=== PATIENT | male | born 1980 | race Caucasian/White ===

== ENCOUNTER 2017-06-14 05:17 | Inpatient (IN) ==
[2017-06-14] MEDS ORDERED: Ondansetron ODT 4 MG TAB.RAPDIS SL ONE (05:49)
[2017-06-14] MEDS ORDERED: Ketorolac 30 MG/ML VIAL IVP ONE (05:49)
--- NOTE | 2017-06-14 05:54 | Emergency Department Note ---
START Narrative - START START: Patient is a 36-year-old male who presents with left lower abdominal pain that started approximately 9 hours prior to his arrival. He said he started after he ate dinner last night. He describes it as worsening. Radiates to his left flank. Nothing is making it better. As mentioned in history of hematuria for which he had been evaluated last month with a CT scan and mentions that he was told he had a fistula. He has a appointment with Dr. Lane next month for colonoscopy. He has some accompanying nausea, frequent urination, and hematuria. He denies fevers, vomiting, h/o kidney stones. This is a start note. Due to shift change, care of this patient will be transferred over to Dr. Clayton. Please see his further documentation for details. Meanwhile I will order GI labs, and analgesics and antiemetics.
[2017-06-14] MEDS ORDERED: *HR* Morphine 2 MG/ML SYRINGE IVP STA ×3 (06:15→08:51)
[2017-06-14] MEDS ORDERED: Ondansetron 4 MG/2 ML VIAL IVP STA (06:16)
--- NOTE | 2017-06-14 06:19 | Emergency Department Note ---
Disposition Clinical Impression: Fistula Abdominal pain Qualifiers: Abdominal location: left lower quadrant Qualified Code(s): R10.32 - Left lower quadrant pain Disposition: Admitted As Inpatient Condition: Fair Referrals: NONE,PCP [Primary Care Provider] - Forms: ED Satisfaction Letter, Work/School Release General Adult HPI - General Chief complaint: ED Abdominal Pain Stated complaint: "Abd Pain" Time Seen by Provider: 06/14/17 05:31 Source: patient, family Limitations: no limitations - History of Present Illness HPI Narrative: Patient presents with left lower quadrant abdominal pain that started after eating a chili dog at 9:30 last night. He was pain-free prior to eating. He vomited once at 11:00, nonbloody, nonbilious. No vomiting since then. Has some mild residual nausea. Pain does not radiate to his testicle or to his back , some radiation towards the right side of his abdomen. He has noted some blood in his urine. No history of similar episodes in the past. He is currently being treated with antibiotics for a bladder infection and is scheduled for a colonoscopy with Dr. Lane due to CT findings suggestive of a mass and a fistula. He has no history of kidney stones or diverticulitis. Has had no fever. Last bowel movement was just before he ate last night, last time he passed gas was right around the time that he ate last night. He does not feel as though his abdomen is distended or bloated. Pain is constant with intermittent waves of worsening and is kept him awake most of the night. Pain Scale: 10 - Related Data Previous Rx's Medication Instructions Recorded Silver Sulfadiazine [Silvadene] 25 gm TP BID #1 cream..g. 06/22/15 cephALEXin [Keflex] 500 mg PO TID #30 capsule 06/22/15 Cefuroxime PO [Ceftin] 500 mg PO Q12HR #20 tablet 05/25/17 Allergies Allergy/AdvReac Type Severity Reaction Status Date / Time diphenhydramine AdvReac See Verified 06/14/17 05:18 [From Benadryl] Comments tramadol AdvReac Nausea Verified 06/14/17 05:18 All systems ED: reviewed and negative except as stated. Past Medical History - Past Medical History Medical history: Reports: no medical history Surgical history: Reports: herniorrhaphy, other Psychiatric history: Reports: no psych history - Social History Smoking Status: Current every day smoker Smokeless Tobacco Status: No Alcohol use: Reports: heavy (States he drinks about a case of beer per day but has not been drinking since she has had a bladder infection because it makes him urinate and urination is painful. He says he had one 24 ounce beer today.) Drug use: Reports: none Physical Exam Vital signs noted please see nurse's notes. Gen.: Well-developed, well-nourished patient lying in bed who appears uncomfortable but nontoxic. Head: Atraumatic, normocephalic. Eyes: Sclerae anicteric. ENT: Mucous membranes moist. Heart: Regular rate and rhythm without appreciable murmur. Lungs: Normal respiratory pattern without respiratory distress, lungs clear to auscultation bilaterally. Abdomen: Soft, no upper abdominal tenderness, significant lower abdominal tenderness, worse on the left than on the right. No guarding, but is obviously uncomfortable. No appreciable distention. Bowel sounds present but hypoactive , not high-pitched. Skin: Warm and dry without rash. Neurologic: Awake, alert with normal speech and mental status. Cranial nerves grossly intact. No focal deficits or lateralizing signs. Psychiatric: Somewhat flat affect. - General Limitations: no limitations General appearance: alert, in no apparent distress Course Course Narrative: Minimal improvement after [address] scan unchanged. Spoke with Dr. Kessler who accepted patient for admission, will notify Dr. Lane as well. Vital Signs Temperature 98.3 F 06/14/17 05:18 Pulse Rate 97 06/14/17 05:18 Respiratory Rate 14 06/14/17 05:18 Blood Pressure 143/87 06/14/17 05:18 O2 Sat by Pulse Oximetry 98 06/14/17 05:18 Temperature 98.3 F 06/14/17 05:18 Pulse Rate 97 06/14/17 05:18 Respiratory Rate 14 06/14/17 05:18 Blood Pressure 143/87 06/14/17 05:18 O2 Sat by Pulse Oximetry 98 06/14/17 05:18 Oxygen Delivery Oxygen Delivery Room Air Medical Decision Making - Lab Data Lab Results 06/14/17 Range/Units 06:24 Urine Color Yellow (Yellow) Urine Clarity Turbid A (Clear) Urine pH 6.0 (5.0-8.0) pH Units Ur Specific [place] 1.026 H (1.010-1.025) Urine Protein 100 H (Neg-Trace) mg/dL Urine Glucose (UA) Normal (Normal) mg/dL Urine Ketones Negative (Negative) mg/dL Urine Blood Large H (Negative) Urine Nitrite Negative (Negative) Urine Bilirubin Negative (Negative) Urine Urobilinogen Normal (Normal) mg/dL Ur Leukocyte Esterase Large H (Negative) Urine Microscopic RBC Present (0-3) per hpf Urine Microscopic WBC TNTC H (0-3) per hpf Ur Squamous Epith Cells Many H (None-Few) per lpf Urine Bacteria Present (None-Few) per hpf Hyaline Casts None Seen (None-Few) per lpf Urine Mucus Many H (Few) Urine Yeast Present H (None Seen) per hpf Ur Culture Indicated? NO. (NO)
[2017-06-14 06:36] LABS: Bilirubin,Urine Negative (Negative); Blood,Urine Large (Negative); Clarity,Urine Turbid (Clear); Color,Urine Yellow (Yellow); Glucose,Urine (UA) Normal (Normal); Ketones,Urine Negative (Negative); Leukocyte Esterase,Urine Large (Negative); Nitrite,Urine Negative (Negative); Protein,Urine 100 mg/dL (Neg-Trace); Specific Gravity,Urine 1.026 (1.010-1.025); Urobilinogen,Urine Normal (Normal)
[2017-06-14 06:38] LABS: Hyaline Casts,Urine None Seen per lpf (None-Few); Squamous Epithelial Cell,Urine Many per lpf (None-Few); WBC,Urine TNTC per hpf (0-3)
[2017-06-14 06:58] LABS: Bacteria,Urine Present per hpf (None-Few); Mucus,Urine Many (Few); RBC,Urine Present per hpf (0-3); Yeast,Urine Present per hpf (None Seen)
--- NOTE | 2017-06-14 10:36 | General Surgery Consult Note ---
<Dave Echeverria - Last Filed: 06/15/17 10:52> Date of Encounter: 06/15/17 Time of Encounter: 10:35 Assessment and Plan (1) Pelvic fluid collection Current Visit: Yes Status: Acute Anterior Abd cyst w/ possible fistula. Patient scheduled to have colonoscopy w / Dr. Iglesia Grossman 07/2017. Patient has had pus and blood in urine. recently treated for bladder infection. CT abd/pelvis - thick-walled complicated cystic lesion abutting the anterior bladder with bilateral extension superiorly towards the iliopsoas muscles measures approximately 9 x 5 x 4 cm and has been present since at least 2014. previously treated at [facility], [facility] as of now. - consult urology, sees Dr. espinoza - consult IR for drainage - will consider transfer to [facility] for surgery, or in house partial cystectomy - obtain old records from [facility] and [place] - serial abd exam - recommend fluconazole - STI panel due to high risk (2) Chronic cystitis with hematuria Current Visit: Yes Status: Acute per management of Urology. (3) Hepatitis C Current Visit: Yes Status: Acute hep C antibody positive. recommend consult with Dr. LARA Qualifiers: Qualified Code(s): B19.20 - Unspecified viral hepatitis C without hepatic coma (4) Alcohol abuse, daily use Current Visit: Yes Status: Acute per management of medicine team (5) Tobacco abuse Current Visit: Yes Status: Acute per management of medicine team History of Present Illness Consult date: 06/14/17 Reason for consult: abdominal pain Requesting physician: Gumaro Clayton History of present illness: Mr Diamond is a 36 year old M w/ 2 year hx of blood in the urine and bladder mass/possible fistula. He was originally scheduled for colonoscopy with Dr. iglesia grossman in early Jul 2017. Patient presented to ED with sudden onset of left lower quadrant pain after eating a chili dog last night. CT abd/pelvis was ordered in ED, and confirmed the presence of anterior bladder mass. Pain is described as sharp and radiates to all quadrants, and lower back. Patient reports no history of UTI, but has had blood and white pus in his urine since getting out of [facility]. He was recently treated for a bladder infection with Keflex which he finished the course 4-5 days ago. Patient last bowel movment was last night. Patient denies change in bowel habit, fever, chills, recent weight loss (he previously reported weight loss when these symptoms first started 2 years ago), or recent illness. Past Med Surg Social Fam HX - Past Medical History Medical history: no medical history Psychiatric history: no psych history - Past Surgical History Surgical History: herniorrhaphy, other - Social History Smoking Status: Current every day smoker Smokeless Tobacco Status: No Alcohol use: heavy (States he drinks about a case of beer per day but has not been drinking since she has had a bladder infection because it makes him urinate and urination is painful. He says he had one 24 ounce beer today.) Drug use: none - Family History Mother History Unknown: Yes Living Status: Age at : 52 (Alcoholic) Cause of : Her failure Father History Unknown: Yes Living Status: Still Living Hx Family Cardiac Disorders: Yes Hx Family Endocrine Disorder: Yes Medications and Allergies RX: Fluconazole [Diflucan] 200 mg PO DAILY #3 tab 06/21/17 [Rx] RX: Vancomycin [Vancocin] 1,750 mg IV BID #30 vial 06/21/17 [Rx] 3 Allergy/AdvReac Type Severity Reaction Status Date / Time diphenhydramine AdvReac See Verified 06/14/17 09:39 [From Benadryl] Comments tramadol AdvReac Nausea Verified 06/14/17 09:39 Review of Systems All systems PM: A 10-system review of systems was performed and is negative for pertinent findings except as documented above in the HPI. - Constitutional as per HPI - EENT Nose, mouth and throat: as per HPI - Cardiovascular as per HPI - Respiratory as per HPI - Gastrointestinal as per HPI - Genitourinary as per HPI - Musculoskeletal as per HPI - Integumentary as per HPI - Neurological as per HPI - Psychiatric as per HPI - Endocrine as per HPI - Hematologic/Lymphatic as per HPI - Allergic/Immunologic as per HPI General Surgery Exam Initial Vital Signs Temp Pulse Resp BP Pulse Ox 98.3 F 97 14 143/87 98 06/14/17 05:18 06/14/17 05:18 06/14/17 05:18 06/14/17 05:18 06/14/17 05:18 - General physical appearance moderate distress, moderate pain - Eyes normal ocular movement - ENT no hearing loss, no congestion - Respiratory normal expansion, normal respiratory effort, clear to percussion, clear to auscultation - Cardiovascular Cardiovascular exam: Present: RRR - Abdomen Abdomen general surgery: Present: bowel sounds present, soft, tender, guarding. Absent: tympanic, distended, rebound Abdominal Tenderness: Present: LLQ, suprapubic - Integumentary Integumentary general surgery: Present: warm and dry, no abnormal pigmentation - Neurologic Present: normal coordination, normal sensation - Psychiatric Psychiatric general surgery: Present: appropriate, oriented to person, oriented to place, oriented to time, speech is normal, memory intact Exam Initial Vital Signs Temp Pulse Resp BP Pulse Ox 98.3 F 97 14 143/87 98 06/14/17 05:18 06/14/17 05:18 06/14/17 05:18 06/14/17 05:18 06/14/17 05:18 Results - Labs 06/15/17 03:56 06/15/17 03:56 Abnormal lab results Urine Clarity Turbid (Clear) A 06/14/17 06:24 Ur Specific [place] 1.026 (1.010-1.025) H 06/14/17 06:24 Urine Protein 100 mg/dL (Neg-Trace) H 06/14/17 06:24 Urine Blood Large (Negative) H 06/14/17 06:24 Ur Leukocyte Esterase Large (Negative) H 06/14/17 06:24 Urine Microscopic WBC TNTC per hpf (0-3) H 06/14/17 06:24 Ur Squamous Epith Cells Many per lpf (None-Few) H 06/14/17 06:24 Urine Mucus Many (Few) H 06/14/17 06:24 Urine Yeast Present per hpf (None Seen) H 06/14/17 06:24 All other labs normal. Consult Discharge Plan - Plan Additional Instructions: Drain care- cleanse around the drain in the shower daily with soap and water and pat dry. Apply dry dressing and taped to secure. Suspend drain while in the shower so that there is no tension on the drain. Empty the drain 2 times daily and as needed. Record outputs (ml's) on drain record and bring to follow-up appointment with Nikkie Masters on 06/27/2017 Referrals: Iglesia Grossman MD [Partnered Physician] - 07/11/17 9:45 am (hospital follow-up; discuss mesh removal) Khoi Galvez DO [Resident] - 06/29/17 3:00 pm Indigo Masters CNP [Advanced Practice Nurse] - 06/27/17 3:00 pm (surgery follow -up; drain check) Prescriptions: RX: Fluconazole [Diflucan] 200 mg PO DAILY #3 tab RX: Vancomycin [Vancocin] 1,750 mg IV BID #30 vial <Vel Tompkins - Last Filed: 06/22/17 07:11> Date of Encounter: 06/15/17 Review of Systems All systems PM: A 10-system review of systems was performed and is negative for pertinent findings except as documented above in the HPI. General Surgery Exam Initial Vital Signs Temp Pulse Resp BP Pulse Ox 98.3 F 97 14 143/87 98 06/14/17 05:18 06/14/17 05:18 06/14/17 05:18 06/14/17 05:18 06/14/17 05:18 Exam Initial Vital Signs Temp Pulse Resp BP Pulse Ox 98.3 F 97 14 143/87 98 06/14/17 05:18 06/14/17 05:18 06/14/17 05:18 06/14/17 05:18 06/14/17 05:18 Results - Labs 06/21/17 09:42 06/21/17 09:42 Abnormal lab results MPV 9.0 fL (9.4-12.4) L 06/21/17 09:42 Glucose 111 mg/dL (70-105) H 06/21/17 09:42 POC Glucose 107 (58-89) H 06/17/17 17:13 AST 58 Units/L (13-39) H 06/15/17 03:56 ALT 97 Units/L (7-52) H 06/15/17 03:56 Globulin 3.8 g/dL (2.4-3.5) H 06/15/17 03:56 Albumin/Globulin Ratio 0.9 (1.1-2.2) L 06/15/17 03:56 HDL Cholesterol 30 mg/dL (40-59) L 06/15/17 03:56 Folate 21.0 ng/mL (3.0-16.0) H 06/15/17 20:58 Urine Clarity Turbid (Clear) A 01/10/18 06:24 Ur Specific [place] 1.026 (1.010-1.025) H 06/14/17 06:24 Urine Protein 100 mg/dL (Neg-Trace) H 06/14/17 06:24 Urine Blood Large (Negative) H 06/14/17 06:24 Ur Leukocyte Esterase Large (Negative) H 06/14/17 06:24 Urine Microscopic WBC TNTC per hpf (0-3) H 06/14/17 06:24 Ur Squamous Epith Cells Many per lpf (None-Few) H 06/14/17 06:24 Urine Mucus Many (Few) H 06/14/17 06:24 Urine Yeast Present per hpf (None Seen) H 06/14/17 06:24 Hepatitis C Ab Screen Reactive (Nonreactive) H 06/14/17 13:50 HCV RNA (PCR) Interp DETECTED (Not Detected) A 06/15/17 08:59 Diabetes panel 06/21/17 Range/Units 09:42 Sodium 138 (136-145) mEq/L Potassium 4.2 (3.5-5.1) mEq/L Chloride 105 (98-107) mEq/L Carbon Dioxide 29 (23-29) mEq/L BUN 9 (6-20) mg/dL Creatinine 0.93 (0.70-1.30) mg/dL Glucose 111 H (70-105) mg/dL Calcium 8.9 (8.6-10.3) mg/dL Calcium panel 06/21/17 Range/Units 09:42 Calcium 8.9 (8.6-10.3) mg/dL Pituitary panel 06/21/17 Range/Units 09:42 Sodium 138 (136-145) mEq/L Potassium 4.2 (3.5-5.1) mEq/L Chloride 105 (98-107) mEq/L Carbon Dioxide 29 (23-29) mEq/L BUN 9 (6-20) mg/dL Creatinine 0.93 (0.70-1.30) mg/dL Glucose 111 H (70-105) mg/dL Calcium 8.9 (8.6-10.3) mg/dL Adrenal panel 06/21/17 Range/Units 09:42 Sodium 138 (136-145) mEq/L Potassium 4.2 (3.5-5.1) mEq/L Chloride 105 (98-107) mEq/L Carbon Dioxide 29 (23-29) mEq/L BUN 9 (6-20) mg/dL Creatinine 0.93 (0.70-1.30) mg/dL Glucose 111 H (70-105) mg/dL Calcium 8.9 (8.6-10.3) mg/dL All other labs normal. - Attending Attestation I examined this patient and my medical decision-making was reviewed with the Resident Physician. I agree with the documented findings, disposition and treatment plan as described except to the extent set forth below. Review the above assessment and evaluation. Patient with chronic pelvic collection which is either fluid or possible abscess. Was concerned about this being a soft tissue mass. We will discuss with interventional radiology about the possibility of placing a drain in this area.
--- NOTE | 2017-06-14 11:17 | Internal Med History&Physical ---
<Belkys Mendieta - Last Filed: 06/14/17 12:42> Date of Encounter: 06/14/17 Time of Encounter: 11:15 Assessment and Plan (1) Abdominal pain Current visit: Yes Status: Acute Cystic lesion of the anterior bladder has been present since 2014, he reports previous hernia repair and treatment at [facility] of a hematoma which required drainage. Possible fistula Gen. surgical consult, ER contacted Dr. Tompkins GI consult Dr Porter contacted Reviewed CT abdomen and pelvis Obtain blood cultures [place] Cipro and Flagyl Labs Qualifiers: Abdominal location: left lower quadrant Qualified Code(s): R10.32 - Left lower quadrant pain (2) Chronic cystitis with hematuria Current visit: Yes Status: Acute Patient has followed with Dr. Love for chronic cystitis and recently completed a course of Keflex about 4 days ago. He was scheduled for a cystoscopy yesterday which was canceled Reviewed urinalysis, obtain urine culture Urology consult (3) Nausea and vomiting in adult Current visit: Yes Status: Acute Zofran Diet as per surgical service (4) Alcohol abuse, daily use Current visit: Yes Status: Acute C1WA scale Social service consult regarding cessation education Check LFTs (5) Tobacco abuse Current visit: Yes Status: Acute Cessation education NicoDerm patch Internal Medicine - H&P: HPI Admitted From: Home Plans for Post Hospital Care: Home History of present illness: Mr. Diamond is a 36 year old male who presented from home to the ER with left lower quadrant pain that was excruciating overnight. Yesterday he felt nauseated and only drink water all day. Last night he ate a chili dog and immediately became nauseated with one emesis of undigested food. He states he was nauseated with pain in the lower abdomen throughout the night. He denied fever, chills, diarrhea, bloody emesis or bowel movement, constipation, shortness of breath, syncope, or weight loss. He does report intermittent sharp chest pain radiating from the abdomen on intermittent basis that does not interfere with his activity. He decided to come for evaluation and treatment today. He is scheduled for a colonoscopy by Dr. Schwartz on July 19 for evaluation of a mass and fistula. He also states that he follows with Dr. Holloway of urology and was scheduled for cystoscopy which was canceled yesterday. He is currently complaining of thirst and hunger and wants to know when he will be able to eat. The patient has a history significant for a cystic lesion of the anterior bladder has been present since 2014 with bladder thickening consistent with chronic cystitis. CT scan also revealed a contracted gallbladder with tiny stones and hepatomegaly with steatosis. The patient states he normally drinks 1 case of a 24 ounce beer daily except when he has bladder problems which causes "terrible pain and burning with voiding". He states he urinates blood at times. He states he has intermittent chronic abdominal pain on a regular basis. He received 40 mg of IV morphine, 30 mg of Toradol and 12 mg of Zofran in the emergency room His significant other is at the bedside, all questions were answered and he is agreeable to admission. Past Med Surg Social Fam HX - Past Medical History Medical history: other (Chronic cystitis, cystic lesion of the anterior bladder , hernia) Psychiatric history: no psych history - Past Surgical History Surgical History: herniorrhaphy, other (Hernia repair) - Social History Smoking Status: Current every day smoker Smokeless Tobacco Status: No Alcohol use: heavy (States he drinks about a case of beer per day but has not been drinking since she has had a bladder infection because it makes him urinate and urination is painful. He says he had one 24 ounce beer today.) Drug use: marijuana Occupational status: employed Current living situation: Home - Independent Activity Level: Independent ambulation - Family History Mother Living Status: Age at : 52 (Alcoholic) Cause of : Her failure Father Living Status: Still Living Hx Family Cardiac Disorders: Yes Hx Family Endocrine Disorder: Yes Internal Medicine - H&P: Meds No Known Home Drugs 06/14/17 [History] 3 Allergy/AdvReac Type Severity Reaction Status Date / Time diphenhydramine AdvReac See Verified 06/14/17 09:39 [From Benadryl] Comments tramadol AdvReac Nausea Verified 06/14/17 09:39 All Systems PM: A 10-system review of systems was performed and is negative for pertinent findings except as documented above in the HPI. - Constitutional Constitutional: no chills, no fever(s), no night sweats - EENT Eyes: no change in vision, no discharge, no pain, no photophobia Ears: no ear discharge, no ear pain, no tinnitus Nose, mouth and throat: no dysphagia, no nasal discharge, no neck pain, no sore throat - Cardiovascular Cardiovascular ROS IM: as per HPI, no diaphoresis, no dyspnea, no lightheadedness, no palpitations, no syncope - Respiratory Respiratory: as per HPI, no cough, no dyspnea, no wheezing, no excessive phlegm production - Gastrointestinal Gastrointestinal: as per HPI, no abdominal pain, no diarrhea, no hematemesis, no hematochezia, no melena, no nausea, no vomiting - Genitourinary Genitourinary ROS male: dysuria, flank pain, hematuria, urinary frequency, urinary urgency - Musculoskeletal Musculoskeletal ROS IM: no numbness, no tingling - Integumentary Integumentary IM: no rash, no unusual bruising - Neurological Neurological ROS: no confusion, no convulsions, no focal weakness, no numbness, no tingling, no tremor(s) - Hematologic/Lymphatic Hematologic/Lymphatic: no easy bruising - Constitutional Vitals: Temp Pulse Resp BP Pulse Ox 98.3 F 92 16 138/87 94 06/14/17 05:18 06/14/17 10:32 06/14/17 10:32 06/14/17 10:32 06/14/17 10:32 General appearance: Present: A&O X 3, pleasant, no acute distress - Head Head exam: Present: atraumatic, normocephalic - Eye Eye exam: Present: PERRL, conjuntiva pink, sclera anicteric Pupils: Present: PERRL - Neck Neck exam general surgery: Present: supple, trachea midline. Absent: lymphadenopathy - Respiratory Respiratory exam: Present: CTAB. Absent: accessory muscle use, rales, rhonchi, wheezes - Cardiovascular Cardiovascular exam: Present: RRR, +S1, +S2. Absent: diastolic murmur, gallop, rubs, systolic murmur - GI/Abdominal GI/Abdominal exam: Present: guarding, normal bowel sounds, soft, no peritoneal signs. Absent: distended, tenderness - Extremities Exam Extremities exam: Present: warm, radial pulses palpable and symmetrical. Absent : calf tenderness, cyanotic, pedal edema - Neurological Exam Neurological exam: Present: CN II-XII intact, oriented X3, no focal deficits. Absent: pronater drift, facial droop, speech deficit - Skin Skin exam: Present: dry, intact <Justus Reinoso P - Last Filed: 06/18/17 19:15> Date of Encounter: 06/18/17 Internal Medicine - H&P: HPI History of present illness: Mr. Diamond is a 36 year old male All Systems PM: A 10-system review of systems was performed and is negative for pertinent findings except as documented above in the HPI. - Constitutional Vitals: Temp Pulse Resp BP Pulse Ox 98.0 F 73 16 145/92 97 06/18/17 16:47 06/18/17 16:47 06/18/17 16:47 06/18/17 16:47 06/18/17 16:47 Internal Med - H&P Results - Labs CBC & Chem 7: 06/17/17 06:57 06/17/17 06:57 - Impressions ITS Impressions Needle Aspiration CT 06/15/17 00:00 IMPRESSION: Successful 12 [place] drainage catheter placement into a pelvic abscess as above. 120 mL of pus was removed. Sample sent to the lab. D/ / Darryl Paredes MD / Darryl Paredes MD Interpreting Provider: Darryl Paredes MD Chest/Abdomen X-ray 06/16/17 12:31 IMPRESSION: Percutaneous drain in the right pelvis projects in stable position. Findings most suggestive of mild colonic ileus. D/ / Dane Mendoza MD / Dane Mendoza MD Interpreting Provider: Dane Mendoza MD - Attending Attestation I examined this patient and my medical decision-making was reviewed with the Resident Physician/[employer]. I agree with the documented findings, disposition and treatment plan as described except to the extent set forth below.
[2017-06-14] MEDS ORDERED: Ondansetron 4 MG/2 ML VIAL IVP PRN (11:56)
[2017-06-14] MEDS ORDERED: Naloxone 0.4 MG/ML INJ IVP PRN (11:56)
[2017-06-14] MEDS: 0.9 % Sodium Chloride 1,000 ML IVC SCH (13:31)
[2017-06-14] MEDS ORDERED: Nicotine 21 MG PATCH.TD24 TD ONE (14:00)
[2017-06-14 14:17] LABS: Basophils % 0.3 %; Eosinophils # 0.1 K/mcL (0.0-0.6); Hematocrit 43.5 % (37.5-50.1); Hemoglobin 13.9 g/dL (12.9-16.9); Immature Granulocytes % 0.4 % (0-4); Lymphocytes # 1.9 K/mcL (0.6-4.6); Lymphocytes % 14.9 %; Mean Corpuscular Hemoglobin 28.9 pg (28.0-33.3); Mean Corpuscular Volume 90.4 fL (83.0-100.0); Mean Platelet Volume 9.3 fL (9.4-12.4); Monocytes # 1.4 K/mcL (0.0-1.3); Monocytes % 11.2 %; Neutrophils # 9.2 K/mcL (1.6-8.9); Platelet Count 330 K/mcL (140-400); Red Blood Count 4.81 M/mcL (4.19-5.50); Red Cell Distribution Width 13.7 % (11.5-14.5); Segmented Neutrophils % 72.2 %
[2017-06-14 14:28] LABS: Alanine Aminotransferase 114 Units/L (7-52); Albumin 4.2 g/dL (3.5-5.7); Albumin/Globulin Ratio 1.1 (1.1-2.2); Alkaline Phosphatase 78 Units/L (34-104); Aspartate Amino Transferase 72 Units/L (13-39); BUN/Creatinine Ratio 12 (6-26); Bilirubin,Total 0.6 mg/dL (0.3-1.0); Blood Urea Nitrogen 11 mg/dL (6-20); Calcium 9.4 mg/dL (8.6-10.3); Carbon Dioxide 23 mEq/L (23-29); Chloride 104 mEq/L (98-107); Globulin 3.8 g/dL (2.4-3.5); Glucose 111 mg/dL (70-105); Osmolality,Calculated 280 (280-300); Potassium 3.8 mEq/L (3.5-5.1); Sodium 135 mEq/L (136-145); eGFR For African Americans > 60 (> 60); eGFR For Non-African Americans > 60 (> 60)
[2017-06-14] MEDS: MetroNIDAZOLE 500 MG/100 ML 500 MG/100 ML BAG IVPB SCH ×2 (14:29→23:59)
[2017-06-14] MEDS: *HR* Morphine 2 MG/ML SYRINGE IVP PRN ×3 (14:29→23:59)
[2017-06-14 15:17] LABS: HIV-1&2 Antibody & p24 Ag Nonreactive (Nonreactive); Hepatitis A Antibody IgM Nonreactive (Nonreactive); Hepatitis B Core IgM Nonreactive (Nonreactive); Hepatitis B Surface Antigen Nonreactive (Nonreactive)
[2017-06-14 15:22] LABS: Hepatitis C Virus Antibody Reactive (Nonreactive)
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
[2017-06-14 17:05] LABS: Carcinoembryonic Antigen 1.5 ng/mL (Less than 5.0)
[2017-06-14] MEDS ORDERED: *HR* Morphine 2 MG/ML SYRINGE IVP PRN (21:32)
[2017-06-15 04:51] LABS: Basophils % 0.3 %; Eosinophils # 0.1 K/mcL (0.0-0.6); Eosinophils % 1.1 %; Hematocrit 41.7 % (37.5-50.1); Hemoglobin 13.1 g/dL (12.9-16.9); Immature Granulocytes % 0.3 % (0-4); Lymphocytes # 1.5 K/mcL (0.6-4.6); Lymphocytes % 16.7 %; Mean Corpuscular HGB Conc 31.4 g/dL (31.6-35.5); Mean Corpuscular Hemoglobin 28.6 pg (28.0-33.3); Mean Platelet Volume 9.7 fL (9.4-12.4); Monocytes # 1.1 K/mcL (0.0-1.3); Monocytes % 11.7 %; Neutrophils # 6.3 K/mcL (1.6-8.9); Platelet Count 284 K/mcL (140-400); Red Blood Count 4.58 M/mcL (4.19-5.50); Red Cell Distribution Width 13.5 % (11.5-14.5); Segmented Neutrophils % 69.9 %
[2017-06-15 04:53] LABS: INR 1.1; Prothrombin Time 11.5 Seconds (9.4-12.1)
[2017-06-15 04:56] LABS: Activated Partial Thrombo Time 28.5 Seconds (26.0-36.0)
[2017-06-15] MEDS: *HR* Morphine 2 MG/ML SYRINGE IVP PRN ×4 (05:04→19:46)
[2017-06-15 05:13] LABS: Alanine Aminotransferase 97 Units/L (7-52); Albumin 3.6 g/dL (3.5-5.7); Albumin/Globulin Ratio 0.9 (1.1-2.2); Alkaline Phosphatase 72 Units/L (34-104); Aspartate Amino Transferase 58 Units/L (13-39); BUN/Creatinine Ratio 11 (6-26); Bilirubin,Total 0.7 mg/dL (0.3-1.0); Blood Urea Nitrogen 9 mg/dL (6-20); Calcium 9.1 mg/dL (8.6-10.3); Carbon Dioxide 26 mEq/L (23-29); Chloride 104 mEq/L (98-107); Chol/HDL Ratio 3.8 (0-4.9); Cholesterol 114 mg/dL (< 200); Globulin 3.8 g/dL (2.4-3.5); Glucose 108 mg/dL (70-105); HDL Cholesterol 30 mg/dL (40-59); LDL Cholesterol,Calculated 73 mg/dL (0-99); Magnesium 2.1 mg/dL (1.6-2.6); Osmolality,Calculated 277 (280-300); Phosphorous 3.4 mg/dL (2.7-4.5); Potassium 3.8 mEq/L (3.5-5.1); Sodium 134 mEq/L (136-145); Total Protein 7.4 g/dL (6.4-8.9); Triglycerides 55 mg/dL (< 150); eGFR For African Americans > 60 (> 60); eGFR For Non-African Americans > 60 (> 60)
[2017-06-15] MEDS: 0.9 % Sodium Chloride 1,000 ML IVC SCH ×2 (06:48→08:48)
[2017-06-15] MEDS: MetroNIDAZOLE 500 MG/100 ML 500 MG/100 ML BAG IVPB SCH ×2 (08:49→17:44)
--- NOTE | 2017-06-15 11:06 | General Surgery Progress Note ---
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 Patient scheduled to have colonoscopy w / Dr. Iglesia Lane 07/2017. Patient has had pus and blood in urine. recently treated for bladder infection. CT abd/pelvis - thick-walled complicated cystic lesion abutting the anterior bladder with bilateral extension superiorly towards the iliopsoas muscles measures approximately 9 x 5 x 4 cm and has been present since at least 2014. previously treated at [facility], unkown as of now. - IR drain - pending - will consider transfer to [facility] for surgery, or in house partial cystectomy - obtain old records from [facility] and [place] - pending - serial abd exam (2) Chronic cystitis with hematuria Current Visit: Yes Status: Acute per management of Urology. started fluconazole 200 mg for day 1, recommend fluconazole 100 mg after. (3) Hepatitis C Current Visit: Yes Status: Acute hep C antibody positive. recommend consult with GI Qualifiers: Qualified Code(s): B19.20 - Unspecified viral hepatitis C without hepatic coma (4) Alcohol abuse, daily use Current Visit: Yes Status: Acute per management of medicine team (5) Tobacco abuse Current Visit: Yes Status: Acute per management of medicine team Subjective Patient reports: feels better, pain is less, nausea, afebrile Objective Vital Signs - Last 8 Hours Temp Pulse Resp BP Pulse Ox 06/15/17 05:23 98.2 F 79 15 105/63 95 Intake and Output 06/14/17 06/15/17 06/15/17 23:59 07:59 15:59 Intake Total 200 / 200 1100 / 1100 Output Total 0 / 0 0 / 0 Balance 200 / 200 1100 / 1100 Intake: IV Fluids 200 / 200 1100 / 1100 0.9 % Sodium Chloride 1,000 ML 1000 / 1000 @ 70 mls/hr IVC .[id number] [facility] Rx #:[id number] Cipro Premix 200 MG/100 ML 200 100 / 100 mg In 100 ml @ 100 mls/hr IVPB Q12HR [facility] Rx#:[id number] Flagyl Premix 500 MG/100 ML 500 100 / 100 100 / 100 mg In 100 ml @ 100 mls/hr IVPB Q8HR [facility] Rx#:[id number] Oral 0 / 0 0 / 0 Output: Urine 0 / 0 0 / 0 Other: Weight 95.8 kg Blood Glucose* 105 Patient Weight 06/15/17 23:59 Weight 95.8 kg - General physical appearance well developed, well nourished, no distress, moderate pain - Eyes normal ocular movement - ENT normal mucosa, no hearing loss, no congestion - Respiratory normal expansion, normal respiratory effort, clear to percussion, clear to auscultation - Cardiovascular Cardiovascular exam: Present: RRR - Abdomen Abdomen: Present: bowel sounds present, soft, tender. Absent: guarding, rebound Abdominal Tenderness: RLQ, LLQ, suprapubic - Integumentary no rash, no growths, no abnormal pigmentation - Neurologic normal sensation - Psychiatric oriented to time, oriented to person, oriented to place, speech is normal, memory intact - Labs 06/15/17 03:56 06/15/17 03:56 Diabetes panel 06/15/17 Range/Units 03:56 Sodium 134 L (136-145) mEq/L Potassium 3.8 (3.5-5.1) mEq/L Chloride 104 (98-107) mEq/L Carbon Dioxide 26 (23-29) mEq/L BUN 9 (6-20) mg/dL Creatinine 0.84 (0.70-1.30) mg/dL Glucose 108 H (70-105) mg/dL Calcium 9.1 (8.6-10.3) mg/dL AST 58 H (13-39) Units/L ALT 97 H (7-52) Units/L Alkaline Phosphatase 72 (34-104) Units/L Albumin 3.6 (3.5-5.7) g/dL Triglycerides 55 (< 150) mg/dL HDL Cholesterol 30 L (40-59) mg/dL Calcium panel 06/15/17 Range/Units 03:56 Calcium 9.1 (8.6-10.3) mg/dL Phosphorus 3.4 (2.7-4.5) mg/dL Albumin 3.6 (3.5-5.7) g/dL Pituitary panel 06/15/17 Range/Units 03:56 Sodium 134 L (136-145) mEq/L Potassium 3.8 (3.5-5.1) mEq/L Chloride 104 (98-107) mEq/L Carbon Dioxide 26 (23-29) mEq/L BUN 9 (6-20) mg/dL Creatinine 0.84 (0.70-1.30) mg/dL Glucose 108 H (70-105) mg/dL Calcium 9.1 (8.6-10.3) mg/dL Adrenal panel 06/15/17 Range/Units 03:56 Sodium 134 L (136-145) mEq/L Potassium 3.8 (3.5-5.1) mEq/L Chloride 104 (98-107) mEq/L Carbon Dioxide 26 (23-29) mEq/L BUN 9 (6-20) mg/dL Creatinine 0.84 (0.70-1.30) mg/dL Glucose 108 H (70-105) mg/dL Calcium 9.1 (8.6-10.3) mg/dL Total Bilirubin 0.7 (0.3-1.0) mg/dL AST 58 H (13-39) Units/L ALT 97 H (7-52) Units/L Alkaline Phosphatase 72 (34-104) Units/L Albumin 3.6 (3.5-5.7) g/dL Consult Discharge Plan - Plan Referrals: NONE,PCP [Primary Care Provider] - <Vel Tompkins M - Last Filed: 06/15/17 17:36> Date of Encounter: 06/15/17 Objective Vital Signs - Last 8 Hours Temp Pulse Resp BP Pulse Ox 06/15/17 14:44 71 24 123/72 95 06/15/17 14:42 67 18 127/75 98 06/15/17 14:40 71 16 127/75 06/15/17 12:02 97.6 F 68 15 127/76 99 Intake and Output 06/15/17 06/15/17 06/15/17 07:59 15:59 23:59 Intake Total 1100 / 1100 200 / 200 Output Total 0 / 0 0 / 0 Balance 1100 / 1100 200 / 200 Intake: IV Fluids 1100 / 1100 200 / 200 0.9 % Sodium Chloride 1,000 ML 1000 / 1000 @ 70 mls/hr IVC .[id number] [facility] Rx #:[id number] Cipro Premix 200 MG/100 ML 200 100 / 100 mg In 100 ml @ 100 mls/hr IVPB Q12HR [facility] Rx#:[id number] Flagyl Premix 500 MG/100 ML 500 100 / 100 100 / 100 mg In 100 ml @ 100 mls/hr IVPB Q8HR [facility] Rx#:[id number] Oral 0 / 0 Output: Urine 0 / 0 0 / 0 Other: Weight 95.8 kg Blood Glucose* 105 Patient Weight 06/15/17 23:59 Weight 95.8 kg - Labs 06/15/17 03:56 06/15/17 03:56 Diabetes panel 06/15/17 Range/Units 03:56 Sodium 134 L (136-145) mEq/L Potassium 3.8 (3.5-5.1) mEq/L Chloride 104 (98-107) mEq/L Carbon Dioxide 26 (23-29) mEq/L BUN 9 (6-20) mg/dL Creatinine 0.84 (0.70-1.30) mg/dL Glucose 108 H (70-105) mg/dL Calcium 9.1 (8.6-10.3) mg/dL AST 58 H (13-39) Units/L ALT 97 H (7-52) Units/L Alkaline Phosphatase 72 (34-104) Units/L Albumin 3.6 (3.5-5.7) g/dL Triglycerides 55 (< 150) mg/dL HDL Cholesterol 30 L (40-59) mg/dL Calcium panel 06/15/17 Range/Units 03:56 Calcium 9.1 (8.6-10.3) mg/dL Phosphorus 3.4 (2.7-4.5) mg/dL Albumin 3.6 (3.5-5.7) g/dL Pituitary panel 06/15/17 Range/Units 03:56 Sodium 134 L (136-145) mEq/L Potassium 3.8 (3.5-5.1) mEq/L Chloride 104 (98-107) mEq/L Carbon Dioxide 26 (23-29) mEq/L BUN 9 (6-20) mg/dL Creatinine 0.84 (0.70-1.30) mg/dL Glucose 108 H (70-105) mg/dL Calcium 9.1 (8.6-10.3) mg/dL Adrenal panel 06/15/17 Range/Units 03:56 Sodium 134 L (136-145) mEq/L Potassium 3.8 (3.5-5.1) mEq/L Chloride 104 (98-107) mEq/L Carbon Dioxide 26 (23-29) mEq/L BUN 9 (6-20) mg/dL Creatinine 0.84 (0.70-1.30) mg/dL Glucose 108 H (70-105) mg/dL Calcium 9.1 (8.6-10.3) mg/dL Total Bilirubin 0.7 (0.3-1.0) mg/dL AST 58 H (13-39) Units/L ALT 97 H (7-52) Units/L Alkaline Phosphatase 72 (34-104) Units/L Albumin 3.6 (3.5-5.7) g/dL - Attending Attestation I examined this patient and my medical decision-making was reviewed with the Resident Physician. I agree with the documented findings, disposition and treatment plan as described except to the extent set forth below. I reviewed with the above assessment and evaluation. The patient underwent a CT scan guided drain of the pelvic fluid collection with over 100 mL of exudate expressed. Cultures pending. Will restart oral diet. Continue with IV antibiotics.
[2017-06-15] MEDS ORDERED: *HR* Midazolam HCl 2 MG/2 ML VIAL IVP ONE (14:28)
[2017-06-15] MEDS ORDERED: *HR* Midazolam HCl 2 MG/2 ML VIAL ONE (14:35)
--- NOTE | 2017-06-15 14:38 | Event Note ---
Date of Encounter: 06/15/17 Time of Encounter: 14:[address] [facility] -MRI of the pelvis 02/13/2015 note soft tissue mass within the pelvis anterior to the bladder extending to the bilateral pelvic sidewalls abutting the bilateral iliacus muscles. The mass invades the interior wall of the bladder. The mast demonstrates solid and cystic components with heterogeneous enhancement. The mass abuts a portion of the sigmoid colon and the left rectus abdominis muscle. 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 Mildly prominent retroperitoneal lymph node which could be metastatic. -CT biopsy (pelvic area mass)/ Surgical pelvic biopsy 02/16/[address] [facility] notes results of review of the air dried imprint slideshow only macrophages and neutrophils. Core biopsy sections show unremarkable segments of skeletal muscle and an occasional fibrovascular -Non-Packing Room Inspector cytology 02/18/2017 note 70 ML is clear yellow fluid negative for malignant cells negative chest x-ray 02/2015 -CTA of the chest 02/14/2015 is without evidence of aneurysm, dissection, or active extravasation of contrast. CTA of the pelvis notes left pelvic tiffanie- peritoneum retroperitoneum a complex heterogeneous rim enhancing mass with multifocal central hyper density and modular peripheral enhancement measuring up to 4.9 X4 .2 cm and transfers dimensions. Urinary bladder is mildly to moderately distended with wall thickening. -CTA of the abdomen and pelvis on 11/28/2015 notes no evidence of solid organ injury or secondary findings to suggest a hollow viscous injury. Multiloculated cystic mass centered over the left virgie pelvis with extension to the left iliac and psoas muscle similar to the finding that was seen previously in February 2015. Differential exam diagnosis again include sarcoma with cystic degeneration and abscess and hepatic steatosis is noted.
--- NOTE | 2017-06-15 15:27 | IR Procedure Note ---
Date of procedure: 06/15/17 Consent Obtained: Written consent Timeout: Correct patient and procedure verified, Correct site verified, Time out performed, Skin prep completed Local anesthetic: Lidocaine 1% Indications: Pelvic fluid collection, chronic, possible fistula to bladder Procedure Performed: Pelvic drain placement Was there an materials assistant present: No Site/Technique: RLQ access, paramidline Results/Findings: 12fr drain placed, 110ml of pus removed. Estimated blood loss (cc): 2 Complications: None; Tolerated procedure well Post Procedure Treatment Plan: Monitoring in VIR Specimen: Sample of pus sent to lab
--- NOTE | 2017-06-15 18:12 | Urology Progress Note ---
Date of Encounter: 06/15/17 Time of Encounter: 18:11 - Assessment and Plan (1) Pelvic fluid collection Current Visit: Yes Status: Acute Assessment and plan: Status post interventional radiology drainage which returned large volume purulent fluid. Patient has improved. Recommend following cultures to determine if bacterial and/or fungal organisms present. No urgent need for surgical intervention (2) Chronic cystitis with hematuria Current Visit: Yes Status: Acute Progress Note Subjective: feels better, still having pain Narrative: Patient reports he still having cramping discomfort in his pelvis Objective Initial Vital Signs Temp Pulse Resp BP Pulse Ox 98.3 F 97 14 143/87 98 06/14/17 05:18 06/14/17 05:18 06/14/17 05:18 06/14/17 05:18 06/14/17 05:18 - General physical appearance Present: no distress - Abdomen Present: soft - Additional Exam Drain with opaque bloody drainage - Labs 06/15/17 03:56 06/15/17 03:56 Diabetes panel 06/15/17 Range/Units 03:56 Sodium 134 L (136-145) mEq/L Potassium 3.8 (3.5-5.1) mEq/L Chloride 104 (98-107) mEq/L Carbon Dioxide 26 (23-29) mEq/L BUN 9 (6-20) mg/dL Creatinine 0.84 (0.70-1.30) mg/dL Glucose 108 H (70-105) mg/dL Calcium 9.1 (8.6-10.3) mg/dL AST 58 H (13-39) Units/L ALT 97 H (7-52) Units/L Alkaline Phosphatase 72 (34-104) Units/L Albumin 3.6 (3.5-5.7) g/dL Triglycerides 55 (< 150) mg/dL HDL Cholesterol 30 L (40-59) mg/dL Calcium panel 06/15/17 Range/Units 03:56 Calcium 9.1 (8.6-10.3) mg/dL Phosphorus 3.4 (2.7-4.5) mg/dL Albumin 3.6 (3.5-5.7) g/dL Pituitary panel 06/15/17 Range/Units 03:56 Sodium 134 L (136-145) mEq/L Potassium 3.8 (3.5-5.1) mEq/L Chloride 104 (98-107) mEq/L Carbon Dioxide 26 (23-29) mEq/L BUN 9 (6-20) mg/dL Creatinine 0.84 (0.70-1.30) mg/dL Glucose 108 H (70-105) mg/dL Calcium 9.1 (8.6-10.3) mg/dL Adrenal panel 06/15/17 Range/Units 03:56 Sodium 134 L (136-145) mEq/L Potassium 3.8 (3.5-5.1) mEq/L Chloride 104 (98-107) mEq/L Carbon Dioxide 26 (23-29) mEq/L BUN 9 (6-20) mg/dL Creatinine 0.84 (0.70-1.30) mg/dL Glucose 108 H (70-105) mg/dL Calcium 9.1 (8.6-10.3) mg/dL Total Bilirubin 0.7 (0.3-1.0) mg/dL AST 58 H (13-39) Units/L ALT 97 H (7-52) Units/L Alkaline Phosphatase 72 (34-104) Units/L Albumin 3.6 (3.5-5.7) g/dL Consult Discharge Plan - Plan Referrals: NONE,PCP [Primary Care Provider] -
--- NOTE | 2017-06-15 20:32 | Internal Med Progress Note ---
Date of Encounter: 06/15/17 Time of Encounter: 20:27 (Patient seen this am) - Assessment and plan (1) Pelvic fluid collection Current Visit: Yes Status: Acute Assessment and plan: IR to drain fluid collection today. Further recommendations from Surgery and Urology. Cipro, Flagyl and Fluconazole started (2) Chronic cystitis with hematuria Current Visit: Yes Status: Acute Assessment and plan: Fluconazole started today by urology. (3) Alcohol abuse, daily use Current Visit: Yes Status: Acute Assessment and plan: CIWA proticol. Thiamin and Folic acid (4) Hepatitis C Current Visit: Yes Status: Acute Assessment and plan: Quatitiative Hep-C test ordered. He will need OP f/u with GI to discuss treatment Qualifiers: Qualified Code(s): B19.20 - Unspecified viral hepatitis C without hepatic coma - Time Spent With Patient Greater than 35 minutes - Subjective Interval history: 36 yr old man admited with suspected anterior Abd cyst w/ possible fistula who had bloody pus in his urine. His CT abd/pelvis showed a complicated cystic lesion anterior to the bladder. Per notes this has been present since 2014. IR to drain abscess today. - Constitutional Vitals: Temp Pulse Resp BP Pulse Ox 97.5 F L 82 14 109/69 97 06/15/17 20:22 06/15/17 20:22 06/15/17 20:22 06/15/17 20:22 06/15/17 20:22 General appearance: Present: A&O X 3, no acute distress - Head Head exam: Present: atraumatic, normal inspection, normocephalic - Eye Eye exam: Present: EOMI, PERRL, conjuntiva pink, sclera anicteric Pupils: Present: PERRL - Neck Neck exam general surgery: Present: supple, trachea midline. Absent: lymphadenopathy - Respiratory Respiratory exam: Present: CTAB. Absent: accessory muscle use, rales, rhonchi, wheezes - Cardiovascular Cardiovascular exam: Present: RRR, +S1, +S2. Absent: diastolic murmur, gallop, rubs, systolic murmur - GI/Abdominal GI/Abdominal exam: Present: normal bowel sounds, soft, no peritoneal signs. Absent: distended, guarding, hepatomegaly, rebound, tenderness - Extremities Exam Extremities exam: Present: warm. Absent: pedal edema - Neurological Exam Neurological exam: Present: CN II-XII intact, oriented X3, no focal deficits. Absent: pronater drift, facial droop, speech deficit - Skin Skin exam: Present: dry, intact. Absent: pallor, petechiae, rash Internal Medicine: Result - Labs CBC & Chem 7: 06/15/17 03:56 06/15/17 03:56 Labs: Short CBC 06/15/17 Range/Units 03:56 WBC 9.1 (4.3-11.1) K/mcL Hgb 13.1 (12.9-16.9) g/dL Hct 41.7 (37.5-50.1) % Plt Count 284 (140-400) K/mcL Neutrophils # 6.3 (1.6-8.9) K/mcL BMP 06/15/17 03:56 Sodium 134 L Potassium 3.8 Chloride 104 Carbon Dioxide 26 BUN 9 Creatinine 0.84 Glucose 108 H Calcium 9.1 Liver Function 06/15/17 Range/Units 03:56 Total Bilirubin 0.7 (0.3-1.0) mg/dL AST 58 H (13-39) Units/L ALT 97 H (7-52) Units/L Alkaline Phosphatase 72 (34-104) Units/L Albumin 3.6 (3.5-5.7) g/dL - ABG Interpretation ABG results: PT/INR, D-dimer PT 11.5 Seconds (9.4-12.1) 06/15/17 03:56 - Impressions Impressions Needle Aspiration CT 06/15/17 00:00 IMPRESSION: Successful 12 Romanian drainage catheter placement into a pelvic abscess as above. 120 mL of pus was removed. Sample sent to the lab. D/ / Darryl Paredes MD / Darryl Paredes MD Interpreting Provider: Darryl Paredes MD Consult Discharge Plan - Plan Referrals: NONE,PCP [Primary Care Provider] -
[2017-06-16] MEDS: MetroNIDAZOLE 500 MG/100 ML 500 MG/100 ML BAG IVPB SCH ×2 (00:10→07:34)
[2017-06-16] MEDS: *HR* Morphine 2 MG/ML SYRINGE IVP PRN ×3 (00:15→10:16)
[2017-06-16] MEDS ORDERED: *HR* Morphine 2 MG/ML SYRINGE IVP ONE (06:13)
[2017-06-16] MEDS: Simethicone 80 MG TAB.CHEW PO PRN ×2 (07:33→18:28)
[2017-06-16] MEDS: Fluconazole 200 MG/100 ML 200 MG/100 ML BAG IVPB SCH (07:33)
[2017-06-16 08:07] LABS: Basophils % 0.4 %; Eosinophils # 0.2 K/mcL (0.0-0.6); Eosinophils % 2.2 %; Hematocrit 41.6 % (37.5-50.1); Hemoglobin 13.2 g/dL (12.9-16.9); Immature Granulocytes % 0.4 % (0-4); Lymphocytes # 1.5 K/mcL (0.6-4.6); Lymphocytes % 18.2 %; Mean Corpuscular HGB Conc 31.7 g/dL (31.6-35.5); Mean Corpuscular Hemoglobin 28.4 pg (28.0-33.3); Mean Corpuscular Volume 89.7 fL (83.0-100.0); Mean Platelet Volume 9.1 fL (9.4-12.4); Monocytes # 1.1 K/mcL (0.0-1.3); Monocytes % 12.8 %; Neutrophils # 5.5 K/mcL (1.6-8.9); Platelet Count 309 K/mcL (140-400); Red Blood Count 4.64 M/mcL (4.19-5.50); Red Cell Distribution Width 13.6 % (11.5-14.5)
[2017-06-16 08:20] LABS: BUN/Creatinine Ratio 9 (6-26); Blood Urea Nitrogen 8 mg/dL (6-20); Calcium 8.9 mg/dL (8.6-10.3); Carbon Dioxide 27 mEq/L (23-29); Chloride 104 mEq/L (98-107); Glucose 115 mg/dL (70-105); Osmolality,Calculated 281 (280-300); Potassium 4.1 mEq/L (3.5-5.1); Sodium 136 mEq/L (136-145); eGFR For African Americans > 60 (> 60); eGFR For Non-African Americans > 60 (> 60)
--- NOTE | 2017-06-16 09:01 | General Surgery Progress Note ---
<Dave Echeverria - Last Filed: 06/16/17 08:59> Date of Encounter: 06/16/17 Time of Encounter: 08:59 - Assessment and Plan (1) Pelvic fluid collection Current Visit: Yes Status: Acute Anterior Abd cyst w/ possible fistula. Patient scheduled to have colonoscopy w / Dr. Iglesia Lane 07/2017. Patient has had pus and blood in urine. recently treated for bladder infection. CT abd/pelvis - thick-walled complicated cystic lesion abutting the anterior bladder with bilateral extension superiorly towards the iliopsoas muscles measures approximately 9 x 5 x 4 cm and has been present since at least 2014. IR placed RLQ access drain on 06/15/17, large volume of purulent and serosanguinous fluid. Patient is hemodynamically stable , but continues to clinically have abdominal pain. - continue abx (Metronidazole day 3, Cipro day 3, fluconazole day 1) - Urine Cx - preliminary reports MRSA, final report pending - serial abd exam - Will continue to follow for resolution of abscess/infection - Chlamydia and gonorrhea labs - pending (2) Chronic cystitis with hematuria Current Visit: Yes Status: Acute per management of Urology. (3) Hepatitis C Current Visit: Yes Status: Acute hep C antibody positive. recommend consult with GI. Hep C Qnt pending. Qualifiers: Qualified Code(s): B19.20 - Unspecified viral hepatitis C without hepatic coma (4) Alcohol abuse, daily use Current Visit: Yes Status: Acute per management of medicine team (5) Tobacco abuse Current Visit: Yes Status: Acute per management of medicine team Subjective Patient reports: no new complaints, still having pain, tolerating liquids well, voiding w/o difficulty, flatus, no bowel movement Objective Vital Signs - Last 8 Hours Temp Pulse Resp BP Pulse Ox 06/16/17 07:18 98.6 F 75 16 105/64 93 06/16/17 04:31 98.1 F 81 15 103/62 92 Intake and Output 06/15/17 06/16/17 06/16/17 23:59 07:59 15:59 Intake Total 200 / 200 1600 / 1600 Output Total 60 / 60 1140 / 1140 Balance 140 / 140 460 / 460 Intake: IV Fluids 200 / 200 1200 / 1200 Cipro Premix 200 MG/100 ML 200 100 / 100 100 / 100 mg In 100 ml @ 100 mls/hr IVPB Q12HR [facility] Rx#:[id number] Flagyl Premix 500 MG/100 ML 500 100 / 100 100 / 100 mg In 100 ml @ 100 mls/hr IVPB Q8HR [facility] Rx#:[id number] Oral 0 / 0 400 / 400 Output: Urine 0 / 0 1050 / 1050 Wound Drainage 60 / 60 90 / 90 Mid lower abdomen 60 / 60 90 / 90 Other: Meal Dinner Percent of Meal Consumed 100% Weight 95.624 kg Patient Weight 06/16/17 23:59 Weight 95.624 kg - General physical appearance well developed, well nourished, moderate distress, moderate pain - Eyes normal ocular movement - ENT no hearing loss, no congestion - Respiratory normal expansion, normal respiratory effort, clear to percussion, clear to auscultation - Cardiovascular Cardiovascular exam: Present: RRR - Abdomen Abdomen: Present: bowel sounds present, soft, tender, guarding. Absent: distended, rebound Abdominal Tenderness: RLQ, LLQ, suprapubic Additional Comments: Right drain serosanguinous - Integumentary no rash, no growths, no abnormal pigmentation - Musculoskeletal normal gait, normal posture - Psychiatric oriented to time, oriented to person, oriented to place, speech is normal, memory intact - Labs 06/16/17 07:57 06/16/17 07:57 Diabetes panel 06/16/17 Range/Units 07:57 Sodium 136 (136-145) mEq/L Potassium 4.1 (3.5-5.1) mEq/L Chloride 104 (98-107) mEq/L Carbon Dioxide 27 (23-29) mEq/L BUN 8 (6-20) mg/dL Creatinine 0.85 (0.70-1.30) mg/dL Glucose 115 H (70-105) mg/dL Calcium 8.9 (8.6-10.3) mg/dL Calcium panel 06/16/17 Range/Units 07:57 Calcium 8.9 (8.6-10.3) mg/dL Pituitary panel 06/16/17 Range/Units 07:57 Sodium 136 (136-145) mEq/L Potassium 4.1 (3.5-5.1) mEq/L Chloride 104 (98-107) mEq/L Carbon Dioxide 27 (23-29) mEq/L BUN 8 (6-20) mg/dL Creatinine 0.85 (0.70-1.30) mg/dL Glucose 115 H (70-105) mg/dL Calcium 8.9 (8.6-10.3) mg/dL Adrenal panel 06/16/17 Range/Units 07:57 Sodium 136 (136-145) mEq/L Potassium 4.1 (3.5-5.1) mEq/L Chloride 104 (98-107) mEq/L Carbon Dioxide 27 (23-29) mEq/L BUN 8 (6-20) mg/dL Creatinine 0.85 (0.70-1.30) mg/dL Glucose 115 H (70-105) mg/dL Calcium 8.9 (8.6-10.3) mg/dL Consult Discharge Plan - Plan Referrals: NONE,PCP [Primary Care Provider] - <Iglesia Lane - Last Filed: 06/16/17 13:23> Date of Encounter: 06/16/17 Objective Vital Signs - Last 8 Hours Temp Pulse Resp BP Pulse Ox 06/16/17 11:22 97.9 F 67 14 122/78 96 06/16/17 07:18 98.6 F 75 16 105/64 93 Intake and Output 06/15/17 06/16/17 06/16/17 23:59 07:59 15:59 Intake Total 200 / 200 1600 / 1600 220 / 220 Output Total 60 / 60 1140 / 1140 Balance 140 / 140 460 / 460 219 / 219 Intake: IV Fluids 200 / 200 1200 / 1200 100 / 100 Cipro Premix 200 MG/100 ML 200 100 / 100 100 / 100 mg In 100 ml @ 100 mls/hr IVPB Q12HR [facility] Rx#:[id number] Diflucan Premix 200 MG/100 ML 100 / 100 200 mg In 100 ml @ 100 mls/hr IVPB DAILY [facility] Rx#:[id number] Flagyl Premix 500 MG/100 ML 500 100 / 100 100 / 100 0 / 0 mg In 100 ml @ 100 mls/hr IVPB Q8HR [facility] Rx#:[id number] Oral 0 / 0 400 / 400 120 / 120 Output: Urine 0 / 0 1050 / 1050 1 Wound Drainage 60 / 60 90 / 90 0 / 0 Mid lower abdomen 60 / 60 90 / 90 0 / 0 Other: Meal Dinner Breakfast Percent of Meal Consumed 100% 0% Weight 95.624 kg Patient Weight 06/16/17 23:59 Weight 95.624 kg - Labs 06/16/17 07:57 06/16/17 07:57 Diabetes panel 06/16/17 Range/Units 07:57 Sodium 136 (136-145) mEq/L Potassium 4.1 (3.5-5.1) mEq/L Chloride 104 (98-107) mEq/L Carbon Dioxide 27 (23-29) mEq/L BUN 8 (6-20) mg/dL Creatinine 0.85 (0.70-1.30) mg/dL Glucose 115 H (70-105) mg/dL Calcium 8.9 (8.6-10.3) mg/dL Calcium panel 06/16/17 Range/Units 07:57 Calcium 8.9 (8.6-10.3) mg/dL Pituitary panel 06/16/17 Range/Units 07:57 Sodium 136 (136-145) mEq/L Potassium 4.1 (3.5-5.1) mEq/L Chloride 104 (98-107) mEq/L Carbon Dioxide 27 (23-29) mEq/L BUN 8 (6-20) mg/dL Creatinine 0.85 (0.70-1.30) mg/dL Glucose 115 H (70-105) mg/dL Calcium 8.9 (8.6-10.3) mg/dL Adrenal panel 06/16/17 Range/Units 07:57 Sodium 136 (136-145) mEq/L Potassium 4.1 (3.5-5.1) mEq/L Chloride 104 (98-107) mEq/L Carbon Dioxide 27 (23-29) mEq/L BUN 8 (6-20) mg/dL Creatinine 0.85 (0.70-1.30) mg/dL Glucose 115 H (70-105) mg/dL Calcium 8.9 (8.6-10.3) mg/dL - Attending Attestation I examined this patient and my medical decision-making was reviewed with the Resident Physician. I agree with the documented findings, disposition and treatment plan as described except to the extent set forth below. The patient is seen and evaluated on morning rounds with the resident. I reviewed all of the CAT scans. My partner Dr. Tompkins was able to supervise placement of interventional radiology catheter into what appears to be an abscess. We will continue to pursue diagnostic workup for bladder perforation or fistula as well as colon perforation or fistula. I fear this may represent infected pre-peritoneal mesh from a TEPP hernia repair in 2004. We will continue to follow closely. Removal of mesh from this position is a high morbidity procedure. We will avoid this if possible. Iglesia Lane MD FACS
--- NOTE | 2017-06-16 12:34 | Internal Med Progress Note ---
Date of Encounter: 06/17/17 Time of Encounter: 12:34 - Assessment and plan (1) Pelvic fluid collection Current Visit: Yes Status: Acute Assessment and plan: IR to drain fluid collection today. Further recommendations from Surgery and Urology. Cipro and Flagyl changed to Zosyn and Vancomycin added for MRSA positive urine cultures. Continue Fluconazole (2) Chronic cystitis with hematuria Current Visit: Yes Status: Acute (3) Alcohol abuse, daily use Current Visit: Yes Status: Acute (4) Hepatitis C Current Visit: Yes Status: Acute Assessment and plan: Quatitiative Hep-C test ordered. He will need OP f/u with GI to discuss treatment Qualifiers: Viral hepatitis chronicity: unspecified Hepatic coma status: without hepatic coma Qualified Code(s): B19.20 - Unspecified viral hepatitis C without hepatic coma Code(s): B19.20 - Unspecified viral hepatitis C without hepatic coma (5) Ileus Current Visit: Yes Status: Acute Assessment and plan: Acute abdominal series shows possible ileus. Pt made NPO and continue supportive care. Code(s): K56.7 - Ileus, unspecified - Subjective Interval history: 36 yr old man admited with suspected anterior Abd cyst w/ possible fistula who had bloody pus in his urine. His CT abd/pelvis showed a complicated cystic lesion anterior to the bladder. Per notes this has been present since 2014. IR to drain abscess yesterday. Urine cultures positive for MRSA so Vancomycin added with RPh dosing. He is c/o of generalized abdominal pain and has not passed flatus or had a bowel movement in >24 hrs. Abd serieres showed possible ileus and he was mad NPO. - Constitutional Vitals: Temp Pulse Resp BP Pulse Ox 97.9 F 67 14 122/78 96 06/16/17 11:22 06/16/17 11:22 06/16/17 11:22 06/16/17 11:22 06/16/17 11:22 General appearance: Present: A&O X 3 - Head Head exam: Present: atraumatic, normocephalic - Eye Eye exam: Present: EOMI, PERRL, conjuntiva pink, sclera anicteric Pupils: Present: PERRL - Neck Neck exam general surgery: Present: supple, trachea midline. Absent: lymphadenopathy, tenderness, nuchal rigidity, thyromegaly - Respiratory Respiratory exam: Present: CTAB. Absent: accessory muscle use, chest wall tenderness, rales, respiratory distress, rhonchi, stridor, wheezes - Cardiovascular Cardiovascular exam: Present: RRR, +S1, +S2, tachycardia. Absent: diastolic murmur, gallop, rubs, systolic murmur - GI/Abdominal GI/Abdominal exam: Present: guarding, hypoactive bowel sounds, soft, no peritoneal signs. Absent: bruit, distended, firm, rebound, rigid, tenderness - Extremities Exam Extremities exam: Present: warm, radial pulses palpable and symmetrical. Absent : calf tenderness, cyanotic, pedal edema - Neurological Exam Neurological exam: Present: CN II-XII intact, oriented X3, no focal deficits. Absent: pronater drift, facial droop, speech deficit - Skin Skin exam: Present: dry, intact Internal Medicine: Result - Labs CBC & Chem 7: 06/16/17 07:57 06/16/17 07:57 Labs: Short CBC 06/16/17 Range/Units 07:57 WBC 8.3 (4.3-11.1) K/mcL Hgb 13.2 (12.9-16.9) g/dL Hct 41.6 (37.5-50.1) % Plt Count 309 (140-400) K/mcL Neutrophils # 5.5 (1.6-8.9) K/mcL BMP 06/16/17 07:57 Sodium 136 Potassium 4.1 Chloride 104 Carbon Dioxide 27 BUN 8 Creatinine 0.85 Glucose 115 H Calcium 8.9 - ABG Interpretation ABG results: PT/INR, D-dimer PT 11.5 Seconds (9.4-12.1) 06/15/17 03:56 - Impressions Impressions Needle Aspiration CT 06/15/17 00:00 IMPRESSION: Successful 12 Thai drainage catheter placement into a pelvic abscess as above. 120 mL of pus was removed. Sample sent to the lab. D/ / Darryl Paredes MD / Darryl Paredes MD Interpreting Provider: Darryl Paredes MD Consult Discharge Plan - Plan Referrals: NONE,PCP [Primary Care Provider] -
[2017-06-16] MEDS: *HR* HYDROmorphone (PF) 1 MG/ML SYRINGE IVP PRN ×2 (13:18→18:26)
[2017-06-16] MEDS: Vancomycin 1,500 MG in D5% in Water 250 ML IVPB SCH (14:48)
[2017-06-16] MEDS: Piperacillin/Tazobactam 3.375 GM/200 ML BAG IVPB SCH (18:26)
[2017-06-16] MEDS: 0.9 % Sodium Chloride 1,000 ML IVC SCH (22:00)
[2017-06-16] MEDS: *HR* HYDROmorphone 2 MG/ML SYRINGE IVP PRN (22:00)
[2017-06-17] MEDS: Simethicone 80 MG TAB.CHEW PO PRN ×2 (00:08→23:51)
[2017-06-17] MEDS: Piperacillin/Tazobactam 3.375 GM/200 ML BAG IVPB SCH ×4 (00:09→23:52)
[2017-06-17] MEDS: Vancomycin 1,500 MG in D5% in Water 250 ML IVPB SCH ×3 (00:14→23:49)
[2017-06-17] MEDS: *HR* HYDROmorphone 2 MG/ML SYRINGE IVP PRN ×4 (01:42→23:54)
[2017-06-17 07:57] LABS: BUN/Creatinine Ratio 6 (6-26); Blood Urea Nitrogen 6 mg/dL (6-20); Calcium 9.3 mg/dL (8.6-10.3); Carbon Dioxide 28 mEq/L (23-29); Chloride 102 mEq/L (98-107); Glucose 113 mg/dL (70-105); Osmolality,Calculated 280 (280-300); Potassium 3.7 mEq/L (3.5-5.1); Sodium 136 mEq/L (136-145); eGFR For African Americans > 60 (> 60); eGFR For Non-African Americans > 60 (> 60)
[2017-06-17] MEDS: Fluconazole 200 MG/100 ML 200 MG/100 ML BAG IVPB SCH (08:03)
[2017-06-17 08:16] LABS: Basophils % 0.5 %; Eosinophils # 0.2 K/mcL (0.0-0.6); Eosinophils % 2.2 %; Hematocrit 42.8 % (37.5-50.1); Hemoglobin 13.9 g/dL (12.9-16.9); Immature Granulocytes % 0.4 % (0-4); Lymphocytes # 1.5 K/mcL (0.6-4.6); Lymphocytes % 20.2 %; Mean Corpuscular HGB Conc 32.5 g/dL (31.6-35.5); Mean Corpuscular Hemoglobin 29.6 pg (28.0-33.3); Mean Corpuscular Volume 91.1 fL (83.0-100.0); Mean Platelet Volume 9.4 fL (9.4-12.4); Monocytes % 13.8 %; Neutrophils # 4.6 K/mcL (1.6-8.9); Platelet Count 319 K/mcL (140-400); Red Cell Distribution Width 13.5 % (11.5-14.5); Segmented Neutrophils % 62.9 %
--- NOTE | 2017-06-17 12:15 | General Surgery Progress Note ---
<Dave Echeverria - Last Filed: 06/17/17 12:12> Date of Encounter: 06/17/17 Time of Encounter: 12:12 - Assessment and Plan (1) Pelvic fluid collection Current Visit: Yes Status: Acute Anterior Abd cyst w/ possible fistula. Patient scheduled to have colonoscopy w / Dr. Iglesia Lane 07/2017. Patient has had pus and blood in urine. recently treated for bladder infection. CT abd/pelvis - thick-walled complicated cystic lesion abutting the anterior bladder with bilateral extension superiorly towards the iliopsoas muscles measures approximately 9 x 5 x 4 cm and has been present since at least 2014. IR placed RLQ access drain on 06/15/17, large volume of purulent and serosanguinous fluid. Patient is hemodynamically stable , but continues to clinically have abdominal pain. - Drain and urine cx MRSA + (vanc day 2, Zosyn day 2, fluconazole day 2) - serial abd exam - Will continue to follow for resolution of abscess/infection - Chlamydia and gonorrhea labs - pending - get 1st urine catch in AM (2) Chronic cystitis with hematuria Current Visit: Yes Status: Acute per management of Urology. (3) Hepatitis C Current Visit: Yes Status: Acute hep C antibody positive. recommend consult with GI. Hep C Qnt pending. Qualifiers: Viral hepatitis chronicity: unspecified Hepatic coma status: without hepatic coma Qualified Code(s): B19.20 - Unspecified viral hepatitis C without hepatic coma (4) Alcohol abuse, daily use Current Visit: Yes Status: Acute per management of medicine team (5) Tobacco abuse Current Visit: Yes Status: Acute per management of medicine team Subjective Patient reports: no new complaints, still having pain, no flatus, no bowel movement Objective Vital Signs - Last 8 Hours Temp Pulse Resp BP Pulse Ox 06/17/17 11:16 98.0 F 63 16 127/78 95 06/17/17 05:47 97.7 F 65 16 107/62 99 Intake and Output 06/16/17 06/17/17 06/17/17 23:59 07:59 15:59 Intake Total 450 / 450 450 / 450 Output Total 100 / 100 0 / 0 60 / 60 Balance 350 / 350 450 / 450 -60 / -60 Intake: IV Fluids 450 / 450 450 / 450 Zosyn Premix 3.375 GM/200 ML 3. 200 / 200 200 / 200 375 gm In 200 ml @ 50 mls/hr IVPB Q8HR [facility] Rx#:[id number] Vancocin 1,500 MG In Dextrose 5 250 / 250 250 / 250 % 250 ML @ 166.67 mls/hr IVPB Q12H [facility] Rx#:[id number] Oral 0 / 0 0 / 0 Output: Urine 0 / 0 0 / 0 Wound Drainage 100 / 100 0 / 0 60 / 60 Mid lower abdomen 100 / 100 0 / 0 60 / 60 Other: Meal Dinner Weight 95.662 kg Blood Glucose* 105 99 Patient Weight 06/17/17 23:59 Weight 95.662 kg - General physical appearance well developed, well nourished, moderate distress, moderate pain - ENT no hearing loss, no congestion - Respiratory normal expansion, normal respiratory effort, clear to percussion, clear to auscultation - Cardiovascular Cardiovascular exam: Present: RRR - Abdomen Abdomen: Present: bowel sounds present, soft, tender, guarding. Absent: rebound Abdominal Tenderness: RLQ, LLQ, suprapubic Additional Comments: drain producing serosanguinous fluid - Integumentary no rash, no growths, no abnormal pigmentation - Psychiatric oriented to time, oriented to person, oriented to place, speech is normal, memory intact - Labs 06/17/17 06:57 06/17/17 06:57 Diabetes panel 06/17/17 Range/Units 06:57 Sodium 136 (136-145) mEq/L Potassium 3.7 (3.5-5.1) mEq/L Chloride 102 (98-107) mEq/L Carbon Dioxide 28 (23-29) mEq/L BUN 6 (6-20) mg/dL Creatinine 0.96 (0.70-1.30) mg/dL Glucose 113 H (70-105) mg/dL Calcium 9.3 (8.6-10.3) mg/dL Calcium panel 06/17/17 Range/Units 06:57 Calcium 9.3 (8.6-10.3) mg/dL Pituitary panel 06/17/17 Range/Units 06:57 Sodium 136 (136-145) mEq/L Potassium 3.7 (3.5-5.1) mEq/L Chloride 102 (98-107) mEq/L Carbon Dioxide 28 (23-29) mEq/L BUN 6 (6-20) mg/dL Creatinine 0.96 (0.70-1.30) mg/dL Glucose 113 H (70-105) mg/dL Calcium 9.3 (8.6-10.3) mg/dL Adrenal panel 06/17/17 Range/Units 06:57 Sodium 136 (136-145) mEq/L Potassium 3.7 (3.5-5.1) mEq/L Chloride 102 (98-107) mEq/L Carbon Dioxide 28 (23-29) mEq/L BUN 6 (6-20) mg/dL Creatinine 0.96 (0.70-1.30) mg/dL Glucose 113 H (70-105) mg/dL Calcium 9.3 (8.6-10.3) mg/dL Consult Discharge Plan - Plan Referrals: NONE,PCP [Primary Care Provider] - <Sascha Gaines - Last Filed: 06/17/17 13:06> Date of Encounter: 06/17/17 Objective Vital Signs - Last 8 Hours Temp Pulse Resp BP Pulse Ox 06/17/17 11:16 98.0 F 63 16 127/78 95 06/17/17 05:47 97.7 F 65 16 107/62 99 Intake and Output 06/16/17 06/17/17 06/17/17 23:59 07:59 15:59 Intake Total 450 / 450 450 / 450 1000 / 1000 Output Total 100 / 100 0 / 0 60 / 60 Balance 350 / 350 450 / 450 940 / 940 Intake: IV Fluids 450 / 450 450 / 450 1000 / 1000 0.9 % Sodium Chloride 1,000 ML 1000 / 1000 @ 75 mls/hr IVC .[id number] [facility] Rx #:[id number] Zosyn Premix 3.375 GM/200 ML 3. 200 / 200 200 / 200 375 gm In 200 ml @ 50 mls/hr IVPB Q8HR [facility] Rx#:[id number] Vancocin 1,500 MG In Dextrose 5 250 / 250 250 / 250 % 250 ML @ 166.67 mls/hr IVPB Q12H [facility] Rx#:[id number] Oral 0 / 0 0 / 0 Output: Urine 0 / 0 0 / 0 Wound Drainage 100 / 100 0 / 0 60 / 60 Mid lower abdomen 100 / 100 0 / 0 60 / 60 Other: Meal Dinner Weight 95.662 kg Blood Glucose* 105 99 Patient Weight 01/13/18 23:59 Weight 95.662 kg - Labs 06/17/17 06:57 06/17/17 06:57 Diabetes panel 06/17/17 Range/Units 06:57 Sodium 136 (136-145) mEq/L Potassium 3.7 (3.5-5.1) mEq/L Chloride 102 (98-107) mEq/L Carbon Dioxide 28 (23-29) mEq/L BUN 6 (6-20) mg/dL Creatinine 0.96 (0.70-1.30) mg/dL Glucose 113 H (70-105) mg/dL Calcium 9.3 (8.6-10.3) mg/dL Calcium panel 06/17/17 Range/Units 06:57 Calcium 9.3 (8.6-10.3) mg/dL Pituitary panel 06/17/17 Range/Units 06:57 Sodium 136 (136-145) mEq/L Potassium 3.7 (3.5-5.1) mEq/L Chloride 102 (98-107) mEq/L Carbon Dioxide 28 (23-29) mEq/L BUN 6 (6-20) mg/dL Creatinine 0.96 (0.70-1.30) mg/dL Glucose 113 H (70-105) mg/dL Calcium 9.3 (8.6-10.3) mg/dL Adrenal panel 06/17/17 Range/Units 06:57 Sodium 136 (136-145) mEq/L Potassium 3.7 (3.5-5.1) mEq/L Chloride 102 (98-107) mEq/L Carbon Dioxide 28 (23-29) mEq/L BUN 6 (6-20) mg/dL Creatinine 0.96 (0.70-1.30) mg/dL Glucose 113 H (70-105) mg/dL Calcium 9.3 (8.6-10.3) mg/dL - Attending Attestation I have personally seen and examined the patient. I have reviewed pertinent labs , imaging, progress notes, including this one. I agree with the above assessment and plan and wish to include the following... 36M with s/p inguinal hernia repair with mesh, prior trauma 2 years prior now with abscess s/p drainage; cont with abx cont with drain no acute surgery appreciated urology recommendations
[2017-06-17] MEDS: 0.9 % Sodium Chloride 1,000 ML IVC SCH (12:36)
[2017-06-17] MEDS: *HR* HYDROmorphone (PF) 1 MG/ML SYRINGE IVP PRN ×2 (12:37→16:24)
--- NOTE | 2017-06-17 12:39 | Internal Med Progress Note ---
Date of Encounter: 06/17/17 Time of Encounter: 12:39 - Assessment and plan (1) Pelvic fluid collection Current Visit: Yes Status: Acute (2) Chronic cystitis with hematuria Current Visit: Yes Status: Acute (3) Alcohol abuse, daily use Current Visit: Yes Status: Acute (4) Hepatitis C Current Visit: Yes Status: Acute Qualifiers: Viral hepatitis chronicity: unspecified Hepatic coma status: without hepatic coma Qualified Code(s): B19.20 - Unspecified viral hepatitis C without hepatic coma Code(s): B19.20 - Unspecified viral hepatitis C without hepatic coma (5) Ileus Current Visit: Yes Status: Acute Code(s): K56.7 - Ileus, unspecified - Subjective Interval history: 36 yr old man admited with suspected anterior Abd cyst w/ possible fistula who had bloody pus in his urine. His CT abd/pelvis showed a complicated cystic lesion anterior to the bladder. Per notes this has been present since 2014. IR to drain abscess yesterday. Urine cultures positive for MRSA so Vancomycin added with RPh dosing. He is c/o of generalized abdominal pain and has not passed flatus or had a bowel movement in >24 hrs. Abd serieres showed possible ileus and he was mad NPO. Today he's begun passing flatus and wants to advance his diet. His abdominal pain is improved and hes out of bed walking in the halls again. Ad - Constitutional Vitals: Temp Pulse Resp BP Pulse Ox 98.0 F 63 16 127/78 95 06/17/17 11:16 06/17/17 11:16 06/17/17 11:16 06/17/17 11:16 06/17/17 11:16 General appearance: Present: A&O X 3, no acute distress - Head Head exam: Present: atraumatic, normocephalic - Eye Eye exam: Present: EOMI, PERRL, conjuntiva pink, sclera anicteric Pupils: Present: PERRL - Neck Neck exam general surgery: Present: supple, trachea midline. Absent: lymphadenopathy, thyromegaly - Respiratory Respiratory exam: Present: CTAB. Absent: accessory muscle use, rales, rhonchi, wheezes - Cardiovascular Cardiovascular exam: Present: RRR, +S1, +S2. Absent: diastolic murmur, gallop, rubs, systolic murmur - GI/Abdominal GI/Abdominal exam: Present: normal bowel sounds, soft, no peritoneal signs. Absent: distended, guarding, tenderness - Extremities Exam Extremities exam: Present: warm, radial pulses palpable and symmetrical. Absent : calf tenderness, cyanotic, pedal edema - Neurological Exam Neurological exam: Present: CN II-XII intact, oriented X3, no focal deficits. Absent: pronater drift, facial droop, speech deficit - Skin Skin exam: Present: dry, intact Internal Medicine: Result - Labs CBC & Chem 7: 06/17/17 06:57 06/17/17 06:57 Labs: Short CBC 06/17/17 Range/Units 06:57 WBC 7.3 (4.3-11.1) K/mcL Hgb 13.9 (12.9-16.9) g/dL Hct 42.8 (37.5-50.1) % Plt Count 319 (140-400) K/mcL Neutrophils # 4.6 (1.6-8.9) K/mcL BMP 06/17/17 06:57 Sodium 136 Potassium 3.7 Chloride 102 Carbon Dioxide 28 BUN 6 Creatinine 0.96 Glucose 113 H Calcium 9.3 - ABG Interpretation ABG results: PT/INR, D-dimer PT 11.5 Seconds (9.4-12.1) 06/15/17 03:56 - Impressions Impressions Chest/Abdomen X-ray 06/16/17 12:31 IMPRESSION: Percutaneous drain in the right pelvis projects in stable position. Findings most suggestive of mild colonic ileus. D/ / Dane Mendoza MD / Dane Mendoza MD Interpreting Provider: Dane Mendoza MD Consult Discharge Plan - Plan Referrals: NONE,PCP [Primary Care Provider] -
[2017-06-17 18:27] LABS: HCV Quant Interpretation DETECTED (Not Detected)
[2017-06-18] MEDS: *HR* HYDROmorphone 2 MG/ML SYRINGE IVP PRN ×3 (03:40→11:56)
[2017-06-18] MEDS: Piperacillin/Tazobactam 3.375 GM/200 ML BAG IVPB SCH ×3 (08:09→23:36)
[2017-06-18] MEDS: Fluconazole 200 MG/100 ML 200 MG/100 ML BAG IVPB SCH (10:19)
[2017-06-18] MEDS: Vancomycin 1,750 MG in D5% in Water 500 ML IVPB SCH ×2 (11:59→23:38)
[2017-06-18] MEDS: *HR* OxyCODONE/APAP 7.5/325 TABLET PO PRN ×3 (15:14→23:39)
--- NOTE | 2017-06-18 16:53 | Internal Med Progress Note ---
Date of Encounter: 06/18/17 Time of Encounter: 16:53 (Seen earlier this afternoon) - Assessment and plan (1) Pelvic fluid collection Current Visit: Yes Status: Acute (2) Chronic cystitis with hematuria Current Visit: Yes Status: Acute (3) Alcohol abuse, daily use Current Visit: Yes Status: Acute (4) Hepatitis C Current Visit: Yes Status: Acute Qualifiers: Viral hepatitis chronicity: unspecified Hepatic coma status: without hepatic coma Qualified Code(s): B19.20 - Unspecified viral hepatitis C without hepatic coma Code(s): B19.20 - Unspecified viral hepatitis C without hepatic coma (5) Ileus Current Visit: Yes Status: Acute Code(s): K56.7 - Ileus, unspecified - Subjective Interval history: 36 yr old man admited with suspected anterior Abd cyst w/ possible fistula who had bloody pus in his urine. His CT abd/pelvis showed a complicated cystic lesion anterior to the bladder. Per notes this has been present since 2014. IR to drain abscess yesterday. Urine cultures positive for MRSA so Vancomycin added with RPh dosing. He is c/o of generalized abdominal pain and has not passed flatus or had a bowel movement in >24 hrs. Abd serieres showed possible ileus and he was mad NPO. Today he's talking about leaving AMA He's moved his bowels and feels better His diet was advanced and his pain meds changed to PO and Dilaudid was d/c'd. - Constitutional Vitals: Temp Pulse Resp BP Pulse Ox 98.0 F 73 16 145/92 97 06/18/17 16:47 06/18/17 16:47 06/18/17 16:47 06/18/17 16:47 06/18/17 16:47 General appearance: Present: A&O X 3, no acute distress - Head Head exam: Present: atraumatic, normocephalic - Eye Eye exam: Present: EOMI, normal appearance, PERRL, conjuntiva pink, sclera anicteric. Absent: scleral icterus Pupils: Present: PERRL. Absent: fixed, irregular - Neck Neck exam general surgery: Present: supple, trachea midline. Absent: lymphadenopathy - Respiratory Respiratory exam: Present: CTAB. Absent: accessory muscle use, rales, rhonchi, stridor, wheezes - Expanded Exam Male exam: Absent: [email or web address] Internal Medicine: Result - Labs CBC & Chem 7: 06/17/17 06:57 06/17/17 06:57 - ABG Interpretation ABG results: PT/INR, D-dimer PT 11.5 Seconds (9.4-12.1) 06/15/17 03:56 Consult Discharge Plan - Plan Referrals: NONE,PCP [Primary Care Provider] -
[2017-06-19] MEDS: Fluconazole 200 MG/100 ML 200 MG/100 ML BAG IVPB SCH (07:14)
[2017-06-19] MEDS: *HR* OxyCODONE/APAP 7.5/325 TABLET PO PRN ×4 (07:14→21:59)
--- NOTE | 2017-06-19 07:53 | General Surgery Progress Note ---
<Jeanie Lujan - Last Filed: 06/19/17 08:26> Date of Encounter: 06/19/17 Time of Encounter: 07:51 - Assessment and Plan (1) Pelvic fluid collection Current Visit: Yes Status: Acute Hemodynamically stable, with abdominal pain improving CT abd/pelvis - thick-walled complicated cystic lesion abutting the anterior bladder with bilateral extension superiorly towards the iliopsoas muscles measures approximately 9 x 5 x 4 cm and has been present since at least 2014. IR placed RLQ access drain on 06/15/17 - Drain and urine cx MRSA + Continue Abx - Will continue to follow for resolution of abscess/infection - Chlamydia and gonorrhea labs - negative (2) Chronic cystitis with hematuria Current Visit: Yes Status: Acute per management of Urology. (3) Alcohol abuse, daily use Current Visit: Yes Status: Acute per management of medicine team (4) Tobacco abuse Current Visit: Yes Status: Acute per management of medicine team (5) Hepatitis C Current Visit: Yes Status: Acute hep C antibody positive, Hep C resulted. recommend consult with GI.. Qualifiers: Viral hepatitis chronicity: unspecified Hepatic coma status: without hepatic coma Qualified Code(s): B19.20 - Unspecified viral hepatitis C without hepatic coma Subjective Patient reports: no new complaints, feels better, pain is less, voiding w/o difficulty, flatus, bowel movement, afebrile Narrative: No Nausea. No vomiting. Pain is 6/10. Patient states he's feeling better. Endorses appetite. Objective Vital Signs - Last 8 Hours Temp Pulse Resp BP Pulse Ox 06/19/17 06:33 97.8 F 67 16 111/62 96 06/19/17 03:27 97.5 F L 69 15 138/83 95 Intake and Output 06/18/17 06/18/17 06/19/17 15:59 23:59 07:59 Intake Total 440 / 440 1060 / 1060 800 / 800 Output Total 100 / 100 40 / 40 40 / 40 Balance 340 / 340 1020 / 1020 760 / 760 Intake: IV Fluids 200 / 200 700 / 700 800 / 800 Diflucan Premix 200 MG/100 ML 100 / 100 200 mg In 100 ml @ 100 mls/hr IVPB DAILY [facility] Rx#:[id number] Zosyn Premix 3.375 GM/200 ML 3. 200 / 200 200 / 200 200 / 200 375 gm In 200 ml @ 50 mls/hr IVPB Q8HR [facility] Rx#:[id number] Vancocin 1,750 MG In Dextrose 5 500 / 500 500 / 500 % 500 ML @ 333.333 mls/hr IVPB Q12H [facility] Rx#:[id number] Oral 240 / 240 360 / 360 0 / 0 Output: Urine 100 / 100 0 / 0 0 / 0 Wound Drainage 40 / 40 40 / 40 Mid lower abdomen 40 / 40 40 / 40 Other: Meal Breakfast Dinner Percent of Meal Consumed 0% 100% Weight 96.1 kg Patient Weight 06/19/17 23:59 Weight 96.1 kg - General physical appearance well developed, moderate pain - Eyes normal ocular movement - Respiratory normal expansion, clear to auscultation - Cardiovascular Cardiovascular exam: Present: RRR, NR - Abdomen Abdomen: Present: bowel sounds present, soft, tender (light suprapubic tenderness on palpation). Absent: rebound Additional Comments: drain producing fluid appropriately - Neurologic normal coordination - Psychiatric oriented to time, oriented to person, oriented to place, speech is normal, memory intact - Labs 06/17/17 06:57 06/17/17 06:57 Consult Discharge Plan - Plan Referrals: NONE,PCP [Primary Care Provider] - <Iglesia Lane - Last Filed: 06/20/17 13:02> Date of Encounter: 06/19/17 Objective Vital Signs - Last 8 Hours Temp Pulse Resp BP Pulse Ox 06/20/17 10:46 97.5 F L 71 14 126/76 100 06/20/17 07:49 97.4 F L 61 14 124/82 99 Intake and Output 06/19/17 06/20/17 06/20/17 23:59 07:59 15:59 Intake Total 480 / 480 500 / 500 580 / 580 Output Total 30 / 30 30 / 30 30 / 30 Balance 450 / 450 470 / 470 550 / 550 Intake: IV Fluids 500 / 500 100 / 100 Diflucan Premix 200 MG/100 ML 100 / 100 200 mg In 100 ml @ 100 mls/hr IVPB DAILY [facility] Rx#:[id number] Vancocin 1,750 MG In Dextrose 5 500 / 500 % 500 ML @ 333.333 mls/hr IVPB Q12H [facility] Rx#:[id number] Oral 480 / 480 0 / 0 480 / 480 Output: Urine 0 / 0 Wound Drainage 30 Mid lower abdomen Other: Meal Dinner Breakfast Percent of Meal Consumed 100% 100% # Voids 4 4 - Labs 06/20/17 04:35 06/20/17 04:35 Diabetes panel 06/20/17 Range/Units 04:35 Sodium 136 (136-145) mEq/L Potassium 3.9 (3.5-5.1) mEq/L Chloride 104 (98-107) mEq/L Carbon Dioxide 27 (23-29) mEq/L BUN 8 (6-20) mg/dL Creatinine 0.84 (0.70-1.30) mg/dL Glucose 122 H (70-105) mg/dL Calcium 9.1 (8.6-10.3) mg/dL Calcium panel 06/20/17 Range/Units 04:35 Calcium 9.1 (8.6-10.3) mg/dL Pituitary panel 06/20/17 Range/Units 04:35 Sodium 136 (136-145) mEq/L Potassium 3.9 (3.5-5.1) mEq/L Chloride 104 (98-107) mEq/L Carbon Dioxide 27 (23-29) mEq/L BUN 8 (6-20) mg/dL Creatinine 0.84 (0.70-1.30) mg/dL Glucose 122 H (70-105) mg/dL Calcium 9.1 (8.6-10.3) mg/dL Adrenal panel 06/20/17 Range/Units 04:35 Sodium 136 (136-145) mEq/L Potassium 3.9 (3.5-5.1) mEq/L Chloride 104 (98-107) mEq/L Carbon Dioxide 27 (23-29) mEq/L BUN 8 (6-20) mg/dL Creatinine 0.84 (0.70-1.30) mg/dL Glucose 122 H (70-105) mg/dL Calcium 9.1 (8.6-10.3) mg/dL - Attending Attestation I examined this patient and my medical decision-making was reviewed with the Resident Physician. I agree with the documented findings, disposition and treatment plan as described except to the extent set forth below. The patient is seen and evaluated on morning rounds with rest. He continues to drain purulent material from the CAT scan drain. I will continue IV antibiotics at this point. Eventually he will need to have the drain removed and transition to a suppression therapy of Bactrim long-term. I will see him in follow-up in the office to discuss mesh removal. Iglesia Lane MD FACS
[2017-06-19] MEDS: Piperacillin/Tazobactam 3.375 GM/200 ML BAG IVPB SCH (08:10)
[2017-06-19] MEDS: Vancomycin 1,750 MG in D5% in Water 500 ML IVPB SCH ×2 (11:47→23:46)
[2017-06-19 15:11] LABS: HCV Genotype by Sequencing 3A
--- NOTE | 2017-06-19 15:11 | Internal Med Progress Note ---
Date of Encounter: 06/19/17 Time of Encounter: 15:09 - Assessment and plan (1) Pelvic fluid collection Current Visit: Yes Status: Acute (2) Chronic cystitis with hematuria Current Visit: Yes Status: Acute (3) Alcohol abuse, daily use Current Visit: Yes Status: Acute (4) Hepatitis C Current Visit: Yes Status: Acute Qualifiers: Viral hepatitis chronicity: unspecified Hepatic coma status: without hepatic coma Qualified Code(s): B19.20 - Unspecified viral hepatitis C without hepatic coma Code(s): B19.20 - Unspecified viral hepatitis C without hepatic coma (5) Ileus Current Visit: Yes Status: Acute Code(s): K56.7 - Ileus, unspecified - Subjective Interval history: He is no longer talking about leaving AMA. He states his pain is controlled and he feels better today. He's passing flatus again and wants to advance his diet. Physical exam: Gen: A&O x2 in no acute distress HEENT: Head is atraumatic and normocephalic. PERRLA, EOM-full No scleral icterus. No oral or perioral lesions. Neck: No JVD, Thyroid is ML without thyromegally or nodules. No cervical LAD CV: RRR with regular rhythm Lungs: CTAB No wheezing, rales or rhonchi Abdomen: Soft , nondistended, Tender over the suprapupic region without peritoneal signs. NL BS all 4 quads w/o RBT or gaurding. Extremities: Nl distal pulses. Skin: warm and dry without rashes. Unable to observe wound today. Neruo: No obvious focal deficits noted. Pertientnt lab findings: Noted below A/P: Chronic cystitis, hematuria and pelvic fluid collection CT abd/pelvis - thick-walled complicated cystic lesion anterior bladder with bilateral extension superiorly towards the iliopsoas muscles. IR placed RLQ access drain on 06/15/17. Drain and urine cx MRSA On Vanc with RPh dosing Also on Zosyn Chlamydia and gonorrhea labs - negative ID consulted for assistance with abx mgt. Hepatitis C Hep-C antibody positive Alcohol abuse, daily use No signs of withdrawal >3o min spent - Constitutional Vitals: Temp Pulse Resp BP Pulse Ox 97.7 F 71 16 116/76 95 06/19/17 10:59 06/19/17 10:59 06/19/17 10:59 06/19/17 10:59 06/19/17 10:59 General appearance: Present: A&O X 3, no acute distress Internal Medicine: Result - Labs CBC & Chem 7: 06/17/17 06:57 06/17/17 06:57 - ABG Interpretation ABG results: PT/INR, D-dimer PT 11.5 Seconds (9.4-12.1) 06/15/17 03:56 Consult Discharge Plan - Plan Referrals: NONE,PCP [Primary Care Provider] -
[2017-06-19] MEDS: Simethicone 80 MG TAB.CHEW PO PRN (15:48)
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
[2017-06-20] MEDS: *HR* OxyCODONE/APAP 7.5/325 TABLET PO PRN ×4 (02:32→19:45)
[2017-06-20 05:31] LABS: Basophils # 0.1 K/mcL (0.0-0.2); Basophils % 1.4 %; Eosinophils # 0.4 K/mcL (0.0-0.6); Eosinophils % 6.8 %; Hematocrit 42.3 % (37.5-50.1); Hemoglobin 13.8 g/dL (12.9-16.9); Immature Granulocytes % 0.3 % (0-4); Lymphocytes # 2.1 K/mcL (0.6-4.6); Lymphocytes % 37.2 %; Mean Corpuscular HGB Conc 32.6 g/dL (31.6-35.5); Mean Corpuscular Hemoglobin 29.4 pg (28.0-33.3); Mean Corpuscular Volume 90.2 fL (83.0-100.0); Mean Platelet Volume 9.5 fL (9.4-12.4); Monocytes # 0.9 K/mcL (0.0-1.3); Monocytes % 15.8 %; Neutrophils # 2.2 K/mcL (1.6-8.9); Platelet Count 340 K/mcL (140-400); Red Blood Count 4.69 M/mcL (4.19-5.50); Red Cell Distribution Width 13.4 % (11.5-14.5); Segmented Neutrophils % 38.5 %
[2017-06-20 05:49] LABS: BUN/Creatinine Ratio 10 (6-26); Blood Urea Nitrogen 8 mg/dL (6-20); Calcium 9.1 mg/dL (8.6-10.3); Carbon Dioxide 27 mEq/L (23-29); Chloride 104 mEq/L (98-107); Glucose 122 mg/dL (70-105); Osmolality,Calculated 282 (280-300); Potassium 3.9 mEq/L (3.5-5.1); Sodium 136 mEq/L (136-145); eGFR For African Americans > 60 (> 60); eGFR For Non-African Americans > 60 (> 60)
--- NOTE | 2017-06-20 06:21 | General Surgery Progress Note ---
<Jeanie Lujan - Last Filed: 06/20/17 08:51> Date of Encounter: 06/20/17 Time of Encounter: 06:20 - Assessment and Plan (1) Pelvic fluid collection Current Visit: Yes Status: Acute Hemodynamically stable, with abdominal pain steadily improving CT abd/pelvis - thick-walled complicated cystic lesion abutting the anterior bladder with bilateral extension superiorly towards the iliopsoas muscles measures approximately 9 x 5 x 4 cm and has been present since at least 2014. IR placed RLQ access drain on 06/15/17 - Drain and urine cx MRSA + Continue Abx - Will continue to follow for resolution of abscess/infection -Attending Domingo discussed further plan with patient and family, patient verbalized understanding (2) Chronic cystitis with hematuria Current Visit: Yes Status: Acute per management of Urology. (3) Alcohol abuse, daily use Current Visit: Yes Status: Acute per management of medicine team (4) Tobacco abuse Current Visit: Yes Status: Acute per management of medicine team (5) Hepatitis C Current Visit: Yes Status: Acute Hep C antibody positive, Hep C Quant resulted. recommend consult with GI.. Qualifiers: Viral hepatitis chronicity: unspecified Hepatic coma status: without hepatic coma Qualified Code(s): B19.20 - Unspecified viral hepatitis C without hepatic coma Subjective Patient reports: no new complaints, feels better, pain is less (Rates pain a 6-7 /10.), voiding w/o difficulty (per patient directly this AM and nurse encounter note), flatus, bowel movement, afebrile Objective Vital Signs - Last 8 Hours Temp Pulse Resp BP Pulse Ox 06/20/17 04:16 97.5 F L 72 16 115/73 97 06/19/17 23:25 98.4 F 64 18 131/79 100 Intake and Output 06/19/17 06/19/17 06/20/17 15:59 23:59 07:59 Intake Total 1360 / 1360 480 / 480 500 / 500 Output Total 45 / 45 30 / 30 30 / 30 Balance 1315 / 1315 450 / 450 470 / 470 Intake: IV Fluids 800 / 800 500 / 500 Diflucan Premix 200 MG/100 ML 100 / 100 200 mg In 100 ml @ 100 mls/hr IVPB DAILY [facility] Rx#:[id number] Zosyn Premix 3.375 GM/200 ML 3. 200 / 200 375 gm In 200 ml @ 50 mls/hr IVPB Q8HR [facility] Rx#:[id number] Vancocin 1,750 MG In Dextrose 5 500 / 500 500 / 500 % 500 ML @ 333.333 mls/hr IVPB Q12H [facility] Rx#:[id number] Oral 560 / 560 480 / 480 Output: Wound Drainage 45 / 45 30 / 30 30 / 30 Mid lower abdomen 45 / 45 30 / 30 30 / 30 Other: Meal Lunch Dinner Percent of Meal Consumed 100% 100% # Voids 1 4 - General physical appearance well developed, no distress, other (sitting comfortably upright in bed) - Eyes normal ocular movement - Respiratory normal expansion, normal respiratory effort, clear to auscultation - Cardiovascular Cardiovascular exam: Present: no murmurs/rubs/gallops. Absent: irregular rhythm - Abdomen Abdomen: Present: bowel sounds present, soft, tender. Absent: distended Abdominal Tenderness: LLQ (mild) - Integumentary no abnormal pigmentation - Neurologic normal coordination - Musculoskeletal normal posture - Psychiatric oriented to time, oriented to person, oriented to place, speech is normal - Labs 06/20/17 04:35 06/20/17 04:35 Diabetes panel 06/20/17 Range/Units 04:35 Sodium 136 (136-145) mEq/L Potassium 3.9 (3.5-5.1) mEq/L Chloride 104 (98-107) mEq/L Carbon Dioxide 27 (23-29) mEq/L BUN 8 (6-20) mg/dL Creatinine 0.84 (0.70-1.30) mg/dL Glucose 122 H (70-105) mg/dL Calcium 9.1 (8.6-10.3) mg/dL Calcium panel 06/20/17 Range/Units 04:35 Calcium 9.1 (8.6-10.3) mg/dL Pituitary panel 06/20/17 Range/Units 04:35 Sodium 136 (136-145) mEq/L Potassium 3.9 (3.5-5.1) mEq/L Chloride 104 (98-107) mEq/L Carbon Dioxide 27 (23-29) mEq/L BUN 8 (6-20) mg/dL Creatinine 0.84 (0.70-1.30) mg/dL Glucose 122 H (70-105) mg/dL Calcium 9.1 (8.6-10.3) mg/dL Adrenal panel 06/20/17 Range/Units 04:35 Sodium 136 (136-145) mEq/L Potassium 3.9 (3.5-5.1) mEq/L Chloride 104 (98-107) mEq/L Carbon Dioxide 27 (23-29) mEq/L BUN 8 (6-20) mg/dL Creatinine 0.84 (0.70-1.30) mg/dL Glucose 122 H (70-105) mg/dL Calcium 9.1 (8.6-10.3) mg/dL Consult Discharge Plan - Plan Referrals: NONE,PCP [Primary Care Provider] - <Val Lanecedric Arreola - Last Filed: 06/20/17 13:07> Date of Encounter: 06/20/17 Objective Vital Signs - Last 8 Hours Temp Pulse Resp BP Pulse Ox 06/20/17 10:46 97.5 F L 71 14 126/76 100 06/20/17 07:49 97.4 F L 61 14 124/82 99 Intake and Output 06/19/17 06/20/17 06/20/17 23:59 07:59 15:59 Intake Total 480 / 480 500 / 500 580 / 580 Output Total 30 / 30 30 / 30 30 / 30 Balance 450 / 450 470 / 470 550 / 550 Intake: IV Fluids 500 / 500 100 / 100 Diflucan Premix 200 MG/100 ML 100 / 100 200 mg In 100 ml @ 100 mls/hr IVPB DAILY [facility] Rx#:[id number] Vancocin 1,750 MG In Dextrose 5 500 / 500 % 500 ML @ 333.333 mls/hr IVPB Q12H [facility] Rx#:[id number] Oral 480 / 480 0 / 0 480 / 480 Output: Urine 0 / 0 Wound Drainage 30 / 30 30 / 30 30 / 30 Mid lower abdomen 30 / 30 30 / 30 30 / 30 Other: Meal Dinner Breakfast Percent of Meal Consumed 100% 100% # Voids 4 4 - Labs 06/20/17 04:35 06/20/17 04:35 Diabetes panel 06/20/17 Range/Units 04:35 Sodium 136 (136-145) mEq/L Potassium 3.9 (3.5-5.1) mEq/L Chloride 104 (98-107) mEq/L Carbon Dioxide 27 (23-29) mEq/L BUN 8 (6-20) mg/dL Creatinine 0.84 (0.70-1.30) mg/dL Glucose 122 H (70-105) mg/dL Calcium 9.1 (8.6-10.3) mg/dL Calcium panel 06/20/17 Range/Units 04:35 Calcium 9.1 (8.6-10.3) mg/dL Pituitary panel 06/20/17 Range/Units 04:35 Sodium 136 (136-145) mEq/L Potassium 3.9 (3.5-5.1) mEq/L Chloride 104 (98-107) mEq/L Carbon Dioxide 27 (23-29) mEq/L BUN 8 (6-20) mg/dL Creatinine 0.84 (0.70-1.30) mg/dL Glucose 122 H (70-105) mg/dL Calcium 9.1 (8.6-10.3) mg/dL Adrenal panel 06/20/17 Range/Units 04:35 Sodium 136 (136-145) mEq/L Potassium 3.9 (3.5-5.1) mEq/L Chloride 104 (98-107) mEq/L Carbon Dioxide 27 (23-29) mEq/L BUN 8 (6-20) mg/dL Creatinine 0.84 (0.70-1.30) mg/dL Glucose 122 H (70-105) mg/dL Calcium 9.1 (8.6-10.3) mg/dL - Attending Attestation I examined this patient and my medical decision-making was reviewed with the Resident Physician. I agree with the documented findings, disposition and treatment plan as described except to the extent set forth below. The patient is seen and evaluated with the resident on morning rounds. He continues to improve with less pain and less drainage from his abscess. Continue IV antibiotics and transitioned to oral antibiotics after drain removal. Iglesia Lane MD FACS
[2017-06-20] MEDS: Fluconazole 200 MG/100 ML 200 MG/100 ML BAG IVPB SCH (09:39)
[2017-06-20] MEDS: Vancomycin 1,750 MG in D5% in Water 500 ML IVPB SCH (12:20)
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
--- NOTE | 2017-06-20 18:37 | Internal Med Progress Note ---
Date of Encounter: 06/20/17 Time of Encounter: 11:00 - Assessment and plan (1) Pelvic fluid collection Current Visit: Yes Status: Acute Assessment and plan: IR to drain; Further recommendations from Surgery and Urology. Cipro and Flagyl changed to Vancomycin added for MRSA positive urine cultures. Continue Fluconazole (2) Chronic cystitis with hematuria Current Visit: Yes Status: Acute Assessment and plan: Fluconazole started today by urology. (3) Hepatitis C Current Visit: Yes Status: Acute Assessment and plan: Quatitiative Hep-C test ordered. He will need OP f/u with GI to discuss treatment Qualifiers: Viral hepatitis chronicity: unspecified Hepatic coma status: without hepatic coma Qualified Code(s): B19.20 - Unspecified viral hepatitis C without hepatic coma - Subjective Interval history: Patient reports feeling better and requesting food this morning - Constitutional Vitals: Temp Pulse Resp BP Pulse Ox 97.9 F 73 14 141/80 100 06/20/17 15:11 06/20/17 15:11 06/20/17 15:11 06/20/17 15:11 06/20/17 15:11 General appearance: Present: A&O X 3, no acute distress - Respiratory Respiratory exam: Present: CTAB. Absent: accessory muscle use, rales, rhonchi, wheezes - Cardiovascular Cardiovascular exam: Present: RRR, +S1, +S2. Absent: diastolic murmur, gallop, rubs, systolic murmur Internal Medicine: Result - Labs CBC & Chem 7: 06/20/17 04:35 06/20/17 04:35 Labs: Short CBC 06/20/17 Range/Units 04:35 WBC 5.8 (4.3-11.1) K/mcL Hgb 13.8 (12.9-16.9) g/dL Hct 42.3 (37.5-50.1) % Plt Count 340 (140-400) K/mcL Neutrophils # 2.2 (1.6-8.9) K/mcL BMP 06/20/17 04:35 Sodium 136 Potassium 3.9 Chloride 104 Carbon Dioxide 27 BUN 8 Creatinine 0.84 Glucose 122 H Calcium 9.1 - ABG Interpretation ABG results: PT/INR, D-dimer PT 11.5 Seconds (9.4-12.1) 06/15/17 03:56 Consult Discharge Plan - Plan Referrals: Khoi Galvez DO [Resident] - 06/29/17 3:00 pm
[2017-06-21] MEDS: Vancomycin 1,750 MG in D5% in Water 500 ML IVPB SCH ×2 (00:02→12:25)
[2017-06-21] MEDS: *HR* OxyCODONE/APAP 7.5/325 TABLET PO PRN ×4 (02:22→20:00)
--- NOTE | 2017-06-21 07:28 | General Surgery Progress Note ---
<Jeanie Lujan - Last Filed: 06/21/17 07:31> Date of Encounter: 06/21/17 Time of Encounter: 07:26 - Assessment and Plan (1) Pelvic fluid collection Current Visit: Yes Status: Acute Hemodynamically stable, with abdominal pain steadily improving. Clinical status improving. CT abd/pelvis - thick-walled complicated cystic lesion abutting the anterior bladder with bilateral extension superiorly towards the iliopsoas muscles measures approximately 9 x 5 x 4 cm and has been present since at least 2014. IR placed RLQ access drain on 06/15/17, continues to drain - Drain and urine cx MRSA. Antibiotic management, per ID. -Attending Domingo discussed further plan with patient and family, patient verbalized understanding (2) Chronic cystitis with hematuria Current Visit: Yes Status: Acute per management of Urology. (3) Alcohol abuse, daily use Current Visit: Yes Status: Chronic per management of medicine team (4) Tobacco abuse Current Visit: Yes Status: Acute Counseled patient on importance of smoking cessation this morning. Care per management of medicine team (5) Hepatitis C Current Visit: Yes Status: Acute Hep C antibody positive, Hep C Quant resulted. Recommend follow-up with GI. Qualifiers: Viral hepatitis chronicity: unspecified Hepatic coma status: without hepatic coma Qualified Code(s): B19.20 - Unspecified viral hepatitis C without hepatic coma Subjective Patient reports: no new complaints, feels better, tolerating a regular diet, voiding w/o difficulty (denies hematuria), flatus, bowel movement, afebrile Objective Vital Signs - Last 8 Hours Temp Pulse Resp BP Pulse Ox 06/21/17 04:56 97.8 F 84 15 114/75 96 Intake and Output 06/20/17 06/20/17 06/21/17 15:59 23:59 07:59 Intake Total 1320 / 1320 0 / 0 500 / 500 Output Total 30 / 30 85 / 85 Balance 1290 / 1290 -85 / -85 500 / 500 Intake: IV Fluids 600 / 600 500 / 500 Diflucan Premix 200 MG/100 ML 100 / 100 200 mg In 100 ml @ 100 mls/hr IVPB DAILY [facility] Rx#:[id number] Vancocin 1,750 MG In Dextrose 5 500 / 500 500 / 500 % 500 ML @ 333.333 mls/hr IVPB Q12H [facility] Rx#:[id number] Oral 720 / 720 0 / 0 0 / 0 Output: Urine 0 / 0 Wound Drainage 85 / 85 Mid lower abdomen 85 / 85 Other: Meal Lunch Percent of Meal Consumed 100% # Voids 4 2 Weight 96.026 kg Patient Weight 06/21/17 23:59 Weight 96.026 kg - General physical appearance well developed - Eyes normal ocular movement - Respiratory normal expansion, normal respiratory effort, clear to auscultation - Cardiovascular Cardiovascular exam: Present: NR. Absent: murmurs - Abdomen Abdomen: Present: bowel sounds present, soft, non tender Additional Comments: RLQ access drain situated well in place, draining - Integumentary no abnormal pigmentation - Neurologic normal coordination - Musculoskeletal normal gait - Psychiatric oriented to time, oriented to person, oriented to place, speech is normal, memory intact - Labs 06/20/17 04:35 06/20/17 04:35 Consult Discharge Plan - Plan Additional Instructions: Drain care- cleanse around the drain in the shower daily with soap and water and pat dry. Apply dry dressing and taped to secure. Suspend drain while in the shower so that there is no tension on the drain. Empty the drain 2 times daily and as needed. Record outputs (ml's) on drain record and bring to follow-up appointment with Nikkie Masters on 06/27/[address]: [address] MD [Partnered Physician] - 07/11/17 9:45 am (hospital follow-up; discuss mesh removal) Khoi Galvez DO [Resident] - 06/29/17 3:00 pm Indigo Masters CNP [Advanced Practice Nurse] - 06/27/17 3:00 pm (surgery follow -up; drain check) Prescriptions: Fluconazole [Diflucan] 200 mg PO DAILY #3 tab Vancomycin [Vancocin] 1,750 mg IV BID #30 vial <Iglesia Lane - Last Filed: 06/22/17 09:14> Date of Encounter: 06/21/17 Objective Vital Signs - Last 8 Hours Temp Pulse Resp BP Pulse Ox 06/22/17 07:55 98.1 F 74 18 136/82 97 06/22/17 04:49 97.7 F 84 15 100/56 96 Intake and Output 06/21/17 06/22/17 06/22/17 23:59 07:59 15:59 Intake Total 240 / 240 0 / 0 Output Total Balance 210 / 210 -30 Intake: Oral 240 / 240 0 / 0 Output: Wound Drainage Mid lower abdomen Other: Meal Dinner Percent of Meal Consumed 100% # Voids 1 - Labs 06/21/17 09:42 06/21/17 09:42 Diabetes panel 06/21/17 Range/Units 09:42 Sodium 138 (136-145) mEq/L Potassium 4.2 (3.5-5.1) mEq/L Chloride 105 (98-107) mEq/L Carbon Dioxide 29 (23-29) mEq/L BUN 9 (6-20) mg/dL Creatinine 0.93 (0.70-1.30) mg/dL Glucose 111 H (70-105) mg/dL Calcium 8.9 (8.6-10.3) mg/dL Calcium panel 06/21/17 Range/Units 09:42 Calcium 8.9 (8.6-10.3) mg/dL Pituitary panel 06/21/17 Range/Units 09:42 Sodium 138 (136-145) mEq/L Potassium 4.2 (3.5-5.1) mEq/L Chloride 105 (98-107) mEq/L Carbon Dioxide 29 (23-29) mEq/L BUN 9 (6-20) mg/dL Creatinine 0.93 (0.70-1.30) mg/dL Glucose 111 H (70-105) mg/dL Calcium 8.9 (8.6-10.3) mg/dL Adrenal panel 06/21/17 Range/Units 09:42 Sodium 138 (136-145) mEq/L Potassium 4.2 (3.5-5.1) mEq/L Chloride 105 (98-107) mEq/L Carbon Dioxide 29 (23-29) mEq/L BUN 9 (6-20) mg/dL Creatinine 0.93 (0.70-1.30) mg/dL Glucose 111 H (70-105) mg/dL Calcium 8.9 (8.6-10.3) mg/dL - Attending Attestation I examined this patient and my medical decision-making was reviewed with the Resident Physician. I agree with the documented findings, disposition and treatment plan as described except to the extent set forth below. The patient is seen and evaluated with the resident on morning rounds. We will plan mesh removal for any evidence of recurrent abscess. I will see him in 4-6 weeks in the office. We will plan IV antibiotics followed by suppression therapy by infectious disease. Elena Lane MD FACS
[2017-06-21] MEDS: Fluconazole 200 MG/100 ML 200 MG/100 ML BAG IVPB SCH (08:52)
--- NOTE | 2017-06-21 09:39 | Event Note ---
Date of Encounter: 06/21/17 Time of Encounter: 09:45 - Patient Status Disposition: Home, Self-Care Condition: Good Overall status at discharge: patient is progressing back to baseline - Discharge Instructions Follow Up With: Khoi Galvez DO [Resident] - 06/29/17 3:00 pm Indigo Masters CNP [Advanced Practice Nurse] - 06/27/17 3:00 pm (surgery follow -up; drain check) Iglesia Lane MD [Partnered Physician] - 07/11/17 9:45 am (hospital follow-up; discuss mesh removal) Additional Instructions: Drain care- cleanse around the drain in the shower daily with soap and water and pat dry. Apply dry dressing and taped to secure. Suspend drain while in the shower so that there is no tension on the drain. Empty the drain 2 times daily and as needed. Record outputs (ml's) on drain record and bring to follow-up appointment with Nikkie Masters on 06/27/2017 - Diet and Activity Activity: increase activity as tolerated Diet: advance to your usual diet
--- NOTE | 2017-06-21 09:46 | Event Note ---
Date of Encounter: 06/21/17 Time of Encounter: 09:45 GI was initially consulted on 06/14/17, labs for hepatitis quant were placed but pt not seen as he was being managed by general surgery. Will follow pt as an outpatient.
[2017-06-21 10:00] LABS: Basophils # 0.1 K/mcL (0.0-0.2); Basophils % 1.5 %; Eosinophils # 0.5 K/mcL (0.0-0.6); Eosinophils % 8.2 %; Hematocrit 42.2 % (37.5-50.1); Hemoglobin 13.4 g/dL (12.9-16.9); Immature Granulocytes % 0.5 % (0-4); Lymphocytes # 1.8 K/mcL (0.6-4.6); Lymphocytes % 29.7 %; Mean Corpuscular HGB Conc 31.8 g/dL (31.6-35.5); Mean Corpuscular Hemoglobin 28.8 pg (28.0-33.3); Mean Corpuscular Volume 90.8 fL (83.0-100.0); Monocytes % 16.6 %; Neutrophils # 2.6 K/mcL (1.6-8.9); Platelet Count 330 K/mcL (140-400); Red Blood Count 4.65 M/mcL (4.19-5.50); Red Cell Distribution Width 13.3 % (11.5-14.5); Segmented Neutrophils % 43.5 %
[2017-06-21 10:20] LABS: BUN/Creatinine Ratio 10 (6-26); Blood Urea Nitrogen 9 mg/dL (6-20); Calcium 8.9 mg/dL (8.6-10.3); Carbon Dioxide 29 mEq/L (23-29); Chloride 105 mEq/L (98-107); Glucose 111 mg/dL (70-105); Osmolality,Calculated 285 (280-300); Potassium 4.2 mEq/L (3.5-5.1); Sodium 138 mEq/L (136-145); eGFR For African Americans > 60 (> 60); eGFR For Non-African Americans > 60 (> 60)
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
[2017-06-21] MEDS ORDERED: Lidocaine -MPF 1% 2 ML VIAL INFILT ONE (12:44)
[2017-06-21] MEDS ORDERED: Lidocaine -MPF 1% 5 ML AMPUL INFILT ONE (13:38)
--- NOTE | 2017-06-21 16:02 | Discharge Summary ---
Date of Encounter: 06/21/17 Time of Encounter: 11:00 - Discharge Diagnosis (1) Pelvic fluid collection Priority: Primary Status: Acute (2) Chronic cystitis with hematuria Priority: Secondary Status: Acute (3) Hepatitis C Priority: Secondary Status: Acute Qualifiers: Viral hepatitis chronicity: unspecified Hepatic coma status: without hepatic coma Qualified Code(s): B19.20 - Unspecified viral hepatitis C without hepatic coma - Discharge Medications Prescriptions: Fluconazole [Diflucan] 200 mg PO DAILY #3 tab Vancomycin [Vancocin] 1,750 mg IV BID #30 vial Home Medications: Fluconazole [Diflucan] 200 mg PO DAILY #3 tab 06/21/17 [Rx] Vancomycin [Vancocin] 1,750 mg IV BID #30 vial 06/21/17 [Rx] Allergies/Adverse Reactions: 3 Allergy/AdvReac Type Severity Reaction Status Date / Time diphenhydramine AdvReac See Verified 06/14/17 09:39 [From Benadryl] Comments tramadol AdvReac Nausea Verified 06/14/17 09:39 Date of admission: 06/14/17 17:59 Primary care physician: PCP NONE Consults: 06/19/17 14:22 Consult to Infectious Diseases [CONS] Routine Consulting Provider: Infectious Disease [place] Reason for Consult: Antibiotic guidance. Time Notified: 14:24 Call Completed: Yes 06/21/17 12:44 Consult to Invasive Line Access Team [CONS] Routine Reason for Consult: Picc Line Insertion Line Type: PICC PICC line indications: intermediate manager Med/Antibiotic Time Notified: 12:45 Call Completed: Yes 06/21/17 13:38 Consult to Invasive Line Access Team [CONS] Routine Reason for Consult: Picc Line Insertion Line Type: PICC PICC line indications: half-way Med/Antibiotic Time Notified: 13:38 Call Completed: Yes - Patient Status Disposition: Home Health Service Condition: Good - Discharge Instructions Follow Up With: Iglesia Lane MD [Partnered Physician] - 07/11/17 9:45 am (hospital follow-up; discuss mesh removal) Khoi Galvez DO [Resident] - 06/29/17 3:00 pm Indigo Masters CNP [Advanced Practice Nurse] - 06/27/17 3:00 pm (surgery follow -up; drain check) Additional Instructions: Drain care- cleanse around the drain in the shower daily with soap and water and pat dry. Apply dry dressing and taped to secure. Suspend drain while in the shower so that there is no tension on the drain. Empty the drain 2 times daily and as needed. Record outputs (ml's) on drain record and bring to follow-up appointment with Nikkie Masters on 06/27/2017 Hospital course: Patient is a 36-year-old male who presented to the ER on 06/14/17 due to abdominal pain. Patient reported of intermittent abdominal discomfort which he described as sharp with associated symptoms of nausea and vomiting provoked with food. Patient was scheduled for a colonoscopy by Dr. Schwartz on July 19 for evaluation of a mass and fistula. He also stated that he follows with Dr. Holloway of urology and was scheduled for cystoscopy which was canceled the day prior to admission. Patient has a history significant for a cystic lesion of the anterior bladder has been present since 2014 with bladder thickening consistent with chronic cystitis. Patient states he normally drinks 1 case of a 24 ounce beer daily except when he has bladder problems which causes "terrible pain and burning with voiding". He states he urinates blood at times. He states he has intermittent chronic abdominal pain on a regular basis. Patient was admitted to the medical floor for further management. During patients hospital stay, he was noted to have pelvic fluid collection, chronic, possible fistula to bladder on imaging and IR was consulted with recommendations for pelvic drain placement which was done on 06/15/17; 110 mL of pus was removed and sent for cultures which grew MRSA. Infectious disease was consult with recommendations of IV vancomycin and continue as an outpatient for 4-6 weeks. Surgery was also consulted with recommendations to continue drain with instructions to empty twice daily as needed and record outputs and bring to appointment as an outpatient on 06/27/2017. GI was initially consulted on 06/14/17 due to hepatitis C and labs for hepatitis quant were placed; he will be followed as an outpatient with GI. Urology was also consult with recommendations to continue fluconazole for fungal urine infection. He will follow-up with urology as an outpatient. - Time Spent with Patient Total time spent providing and/or coordinating discharge services: Less than 30 minutes - Constitutional Vitals: Temp Pulse Resp BP Pulse Ox 97.6 F 86 16 122/81 98 06/21/17 15:37 06/21/17 15:37 06/21/17 15:37 06/21/17 15:37 06/21/17 15:37 General appearance: Present: A&O X 3, no acute distress - Respiratory Respiratory exam: Present: CTAB. Absent: accessory muscle use, rales, rhonchi, wheezes - Cardiovascular Cardiovascular exam: Present: RRR, +S1, +S2. Absent: diastolic murmur, gallop, rubs, systolic murmur
--- NOTE | 2017-06-21 16:03 | Physician Discharge Referral ---
Home Health/Hosp Referral Info Transfer to: Home Health - Diagnosis (1) Pelvic fluid collection Priority: Primary Status: Acute (2) Chronic cystitis with hematuria Priority: Secondary Status: Acute (3) Hepatitis C Priority: Secondary Status: Acute - Respiratory Orders Smoking Cessation: Smoking cessation has been advised. For more information, call the [place] Tobacco Quit Line at 8-112-KOGD-NOW. - Services Needed Following services are medically necessary services: Nursing, Home Infusion - Transfer Medications Prescriptions: Fluconazole [Diflucan] 200 mg PO DAILY #3 tab Vancomycin [Vancocin] 1,750 mg IV BID #30 vial Home Medications: Fluconazole [Diflucan] 200 mg PO DAILY #3 tab 06/21/17 [Rx] Vancomycin [Vancocin] 1,750 mg IV BID #30 vial 06/21/17 [Rx] Allergies/Adverse Reactions: 3 Allergy/AdvReac Type Severity Reaction Status Date / Time diphenhydramine AdvReac See Verified 06/14/17 09:39 [From Benadryl] Comments tramadol AdvReac Nausea Verified 06/14/17 09:39 Certification: Further, I certify that my clinical findings support that this patient is homebound (i.e. absences from home require considerable and taxing effort and are for medical reasons or sikh services or infrequently or short duration when for other reasons) because: Homebound Reason: Patient requires assistance of a person or device to safely leave home Attestation: My signature below is to certify that this patient is under my care and that I, or nurse practitioner, or a physician's patient services assistant working with me, has a face-to -face encounter with this patient.
[2017-06-21] MEDS ORDERED: Aminoglycoside Consult 1 EACH MC ONE (16:25)
[2017-06-22] MEDS: Vancomycin 1,750 MG in D5% in Water 500 ML IVPB SCH ×2 (01:28→12:30)
[2017-06-22] MEDS: *HR* OxyCODONE/APAP 7.5/325 TABLET PO PRN ×3 (01:29→14:20)
[2017-06-22] MEDS: Fluconazole 200 MG/100 ML 200 MG/100 ML BAG IVPB SCH (09:05)
[2017-06-22 12:38] VITALS: BP 134/78
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
--- NOTE | 2017-06-22 14:14 | Physician Discharge Referral ---
ExtendedCare Referral Info Institutional Level of Care: Skilled - Diagnosis (1) Pelvic fluid collection Priority: Primary Status: Acute (2) Chronic cystitis with hematuria Priority: Primary Status: Acute (3) Hepatitis C Priority: Primary Status: Acute Prognosis: Good - Transfer Medications Prescriptions: Fluconazole [Diflucan] 200 mg PO DAILY #3 tab Vancomycin [Vancocin] 1,750 mg IV BID #30 vial Home Medications: Fluconazole [Diflucan] 200 mg PO DAILY #3 tab 06/21/17 [Rx] Vancomycin [Vancocin] 1,750 mg IV BID #30 vial 06/21/17 [Rx] Allergies/Adverse Reactions: 3 Allergy/AdvReac Type Severity Reaction Status Date / Time diphenhydramine AdvReac See Verified 06/14/17 09:39 [From [place]] Comments tramadol AdvReac Nausea Verified 06/14/17 09:39 - Respiratory Orders Smoking Cessation: Smoking cessation has been advised. For more information, call the [place] Tobacco Quit Line at 1-204-BFQN-NOW. - Rehabiliation Orders Rehab Potential: Good CERTIFICATION: I certify that the transfer of the above named patient to an Extended Care Facility is necessary for the continuing treatment of the diagnosis listed. The above information is true and accurate reflection of patient's current condition. Confidential - Redisclosure prohibited without a patient's written consent.
== END 2017-06-22 16:26 | DRG 248 ==
LOC: EMEROO 05:17 → 3ANU 05:17 → SUATTDRO 17:59
PROVIDERS: ADMIT Internal Medicine; ATTEND Hospitalist
PROC: IRDRAIN (2017-06-15 12:30)

== ENCOUNTER 2017-07-14 13:50 | Inpatient (IN) ==
[2017-07-14] MEDS ORDERED: 0.9 % Sodium Chloride 1,000 ML IVC ONE (16:13)
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
[2017-07-14] MEDS ORDERED: Vancomycin 1,500 MG in D5% in Water 250 ML IVPB ONE (16:39)
[2017-07-14 17:02] LABS: Basophils # 0.1 K/mcL (0.0-0.2); Basophils % 0.8 %; Eosinophils # 0.4 K/mcL (0.0-0.6); Eosinophils % 4.8 %; Hemoglobin 13.8 g/dL (12.9-16.9); Immature Granulocytes % 0.5 % (0-4); Lymphocytes # 1.8 K/mcL (0.6-4.6); Lymphocytes % 23.7 %; Mean Corpuscular HGB Conc 32.9 g/dL (31.6-35.5); Mean Corpuscular Hemoglobin 28.9 pg (28.0-33.3); Mean Corpuscular Volume 88.1 fL (83.0-100.0); Mean Platelet Volume 9.1 fL (9.4-12.4); Monocytes % 13.3 %; Neutrophils # 4.3 K/mcL (1.6-8.9); Platelet Count 256 K/mcL (140-400); Red Blood Count 4.77 M/mcL (4.19-5.50); Red Cell Distribution Width 13.4 % (11.5-14.5); Segmented Neutrophils % 56.9 %
[2017-07-14 17:16] LABS: Alanine Aminotransferase 104 Units/L (7-52); Albumin 4.1 g/dL (3.5-5.7); Albumin/Globulin Ratio 1.2 (1.1-2.2); Alkaline Phosphatase 114 Units/L (34-104); Aspartate Amino Transferase 53 Units/L (13-39); BUN/Creatinine Ratio 12 (6-26); Bilirubin,Direct 0.1 mg/dL (0.0-0.2); Bilirubin,Indirect 0.3 mg/dL (0.0-1.2); Bilirubin,Total 0.4 mg/dL (0.3-1.0); Blood Urea Nitrogen 9 mg/dL (6-20); Calcium 9.5 mg/dL (8.6-10.3); Carbon Dioxide 23 mEq/L (23-29); Chloride 105 mEq/L (98-107); Globulin 3.5 g/dL (2.4-3.5); Glucose 124 mg/dL (70-105); Lipase 13 Units/L (11-82); Osmolality,Calculated 278 (280-300); Sodium 134 mEq/L (136-145); Total Protein 7.6 g/dL (6.4-8.9); eGFR For African Americans > 60 (> 60); eGFR For Non-African Americans > 60 (> 60)
[2017-07-14 17:25] LABS: Bilirubin,Urine Negative (Negative); Blood,Urine Large (Negative); Clarity,Urine Cloudy (Clear); Color,Urine Yellow (Yellow); Glucose,Urine (UA) Normal (Normal); Ketones,Urine Negative (Negative); Leukocyte Esterase,Urine Large (Negative); Nitrite,Urine Negative (Negative); Protein,Urine Negative (Neg-Trace); Urobilinogen,Urine Normal (Normal)
[2017-07-14 17:28] LABS: Bacteria,Urine None Seen per hpf (None-Few); Hyaline Casts,Urine None Seen per lpf (None-Few); Squamous Epithelial Cell,Urine Many per lpf (None-Few); WBC,Urine 50-100 per hpf (0-3)
[2017-07-14] MEDS ORDERED: Piperacillin/Tazobactam 3.375 GM in Water for inj. (sterile) 20 ML 20 ML IVP ONE (17:46)
[2017-07-14] MEDS ORDERED: *HR* OxyCODONE/APAP 10/325 TABLET PO ONE (18:24)
[2017-07-14] MEDS ORDERED: Naloxone 0.4 MG/ML INJ IVP PRN (18:56)
--- NOTE | 2017-07-14 19:08 | Internal Med History&Physical ---
Addendum entered and electronically signed by Junior Mast 07/14/17 21:57: Consults will need to be called by [facility]. Original Note: <Junior Mast - Last Filed: 07/14/17 19:06> Date of Encounter: 07/14/17 Time of Encounter: 19:06 Assessment and Plan (1) Pelvic abscess in male Current visit: Yes Status: Acute Etiology unclear, however her prior cultures positive organism is known to be MRSA. Urine cultures at that time also grew MRSA and there was some concern for fistula. Dr. Lane has also been involved as well as Dr. Brown. There was some concern for possible contamination of abdominal mesh to which Dr. Lane was considering removing. He recently had a CT-guided drain placement on 06/15/17 by IR: 12-[place] drain initially drained 110 mL of pus He was sent to an ECF on IV vancomycin and Diflucan with the drain. However, the drain was displaced The initial plan was for 4-6 weeks of IV vancomycin and continued drainage until fluid collection resolved and then to switch the patient to oral doxycycline for suppressive therapy for 3-6 months. However, due to displacement of the drain his infectious disease team requested further imaging A CT of the abdomen and pelvis revealed THICKENING and serosal haziness, para colonic left-sided upper pelvic abscess measuring 4.8 x 3.9 cm with thickening of the adjacent left psoas muscle. Additionally, there appears to connect to the large abscess cavity in the midline of the lower pelvis. Wall thickening in the sigmoid is likely secondary to the abscess extension from the pelvis. Plan: Vancomycin with pharmacy to dose, Zosyn, continue Diflucan Consult interventional radiology- will need drain placement Consult infectious disease Consult surgery-ED physician reports that they were able to speak to surgery and that they will see the patient in the am Consult SS Pain management with oxycodone and ketorolac Urine sent for culture Blood cultures (2) Abdominal pain Current visit: Yes Status: Acute Secondary to pelvic fluid abscess. Qualifiers: Abdominal location: unspecified location Qualified Code(s): R10.9 - Unspecified abdominal pain (3) UTI (urinary tract infection) Current visit: Yes Status: Acute Urinalysis cloudy and positive for leukocyte esterase as well as a large amount of blood Causative organism MRSA and candiduria per prior cultures -Vancomycin, Zosyn and Diflucan -urine sent for culture -Consult I&D for further recommendations -IVF 0.9% NS at 100ml/hr -CBC, BMP in the am Qualifiers: Urinary tract infection type: site unspecified Hematuria presence: with hematuria Qualified Code(s): N39.0 - Urinary tract infection, site not specified; R31.9 - Hematuria, unspecified; R31.9 - Hematuria, unspecified (4) Chronic cystitis with hematuria Current visit: Yes Status: Acute Secondary to pelvic fluid collection and possible fistula to bladder. Fluid collection previously positive for MRSA and prior urine cultures also positive for MRSA. See plan above (5) Tobacco abuse Current visit: Yes Status: Acute Discussed tobacco cessation. (6) Pelvic fluid collection Current visit: Yes Status: Acute (7) Hepatitis C Current visit: Yes Status: Acute Qualifiers: Viral hepatitis chronicity: chronic Hepatic coma status: without hepatic coma Qualified Code(s): B18.2 - Chronic viral hepatitis C Internal Medicine - H&P: HPI Chief complaint: abdominal pain Admitted From: Home Plans for Post Hospital Care: Home History of present illness: Mr. Diamond is a 37 year old male with a PMH of hepatitis and herniorrhaphy. He presents to [facility] today with lower abdominal abscess. He was recently admitted due to this abscess and required a TRACI drain and daily vancomycin due to positive cultures showing MRSA. He was being followed by Dr. Lane, urology, and infectious disease throughout his last stay. It appears that there is concern for a fistula as well. He presents today following additional imaging which revealed an increase in size of the fluid collection. He admits to increasing lower abdominal pressure and back pain. He denies any constitutional symptoms, chest pain, shortness of breath, dysuria, flank pain or hematuria. During his prior admission he notes that his urine was purulent however, today it is pale yellow. Past Med Surg Social Fam HX - Past Medical History Medical history: hepatitis Psychiatric history: no psych history - Past Surgical History Surgical History: herniorrhaphy, other - Social History Smoking Status: Current every day smoker Smokeless Tobacco Status: No Alcohol use: none Drug use: none - Family History Mother Living Status: Father Living Status: Still Living Hx Family Cardiac Disorders: Yes Hx Family Endocrine Disorder: Yes Internal Medicine - H&P: Meds Fluconazole [Diflucan] 200 mg PO DAILY #3 tab 06/21/17 [Rx] Ibuprofen [Motrin] 200 mg PO Q6HR PRN 07/14/17 [History] OxyCODONE Immed Rel [Roxicodone 5 MG] 5 mg PO Q6H PRN 07/14/17 [History] 3 Allergy/AdvReac Type Severity Reaction Status Date / Time diphenhydramine AdvReac See Verified 06/14/17 09:39 [From Benadryl] Comments tramadol AdvReac Nausea Verified 06/14/17 09:39 All Systems PM: A 10-system review of systems was performed and is negative for pertinent findings except as documented above in the HPI. - Constitutional Constitutional: no chills, no fever(s), no night sweats - Cardiovascular Cardiovascular ROS IM: no chest pain, no diaphoresis, no dyspnea, no lightheadedness, no palpitations, no syncope - Respiratory Respiratory: no cough, no dyspnea, no wheezing, no excessive phlegm production - Gastrointestinal Gastrointestinal: as per HPI, abdominal pain - Genitourinary Genitourinary ROS male: as per HPI, no dysuria, no flank pain - Musculoskeletal Musculoskeletal ROS IM: no numbness, no tingling - Integumentary Integumentary IM: no rash, no unusual bruising - Neurological Neurological ROS: no confusion, no convulsions, no focal weakness, no numbness, no tingling, no tremor(s) - Constitutional Vitals: Temp Pulse Resp BP Pulse Ox 97.7 F 81 16 139/91 98 07/14/17 14:17 07/14/17 18:37 07/14/17 18:37 07/14/17 18:37 07/14/17 18:37 General appearance: Present: cooperative, A&O X 3, no acute distress, answers questions appropriately - Head Head exam: Present: atraumatic, normocephalic - Eye Eye exam: Present: PERRL, conjuntiva pink, sclera anicteric Pupils: Present: PERRL - Neck Neck exam general surgery: Present: supple, trachea midline. Absent: lymphadenopathy - Respiratory Respiratory exam: Present: CTAB. Absent: accessory muscle use, rales, rhonchi, wheezes - Cardiovascular Cardiovascular exam: Present: RRR, +S1, +S2. Absent: diastolic murmur, gallop, rubs, systolic murmur - GI/Abdominal GI/Abdominal exam: Present: firm, normal bowel sounds, tenderness (RLQ, LLQ), no peritoneal signs. Absent: distended, guarding, mass, rebound, rigid, soft - Extremities Exam Extremities exam: Present: warm, radial pulses palpable and symmetrical. Absent : calf tenderness, cyanotic, pedal edema - Back Exam Back exam: Absent: CVA tenderness (L), CVA tenderness (R) - Neurological Exam Neurological exam: Present: CN II-XII intact, oriented X3, no focal deficits. Absent: pronater drift, facial droop, speech deficit - Skin Skin exam: Present: dry, intact Internal Med - H&P Results - Labs CBC & Chem 7: 07/14/17 16:41 07/14/17 16:41 - Impressions Large lower pelvic midline abscess with extension into the left upper pelvic sidewall and adjacent pericolonic wall thickening and enlargement of the left psoas muscle. Inflammatory changes are noted in an adjacent sigmoid loop in the left lower quadrant. Inflammatory changes are probably secondary to abscess. 2. Shotty to mildly enlarged left external iliac lymph nodes. 3. Bladder wall thickening and other findings as above. <[place] T - Last Filed: 07/15/17 10:06> Date of Encounter: 07/15/17 Internal Medicine - H&P: HPI History of present illness: Mr. Diamond is a 37 year old male All Systems PM: A 10-system review of systems was performed and is negative for pertinent findings except as documented above in the HPI. - Constitutional Vitals: Temp Pulse Resp BP Pulse Ox 97.7 F 69 16 105/57 95 07/15/17 06:56 07/15/17 06:56 07/15/17 06:56 07/15/17 06:56 07/15/17 06:56 Internal Med - H&P Results - Labs CBC & Chem 7: 07/15/17 05:15 07/15/17 05:15 Labs: Short CBC 07/15/17 Range/Units 05:15 WBC 5.8 (4.3-11.1) K/mcL Hgb 12.5 L (12.9-16.9) g/dL Hct 39.2 (37.5-50.1) % Plt Count 238 (140-400) K/mcL Neutrophils # 2.9 (1.6-8.9) K/mcL [facility] 07/15/17 05:15 Sodium 138 Potassium 4.2 Chloride 108 H Carbon Dioxide 26 BUN 12 Creatinine 0.92 Glucose 141 H Calcium 8.9 - Attending Attestation The patient was independently examined and his available records and tests were reviewed. I agree with the [employer]'s A&P.
[2017-07-14] MEDS: 0.9 % Sodium Chloride 1,000 ML IVC SCH (19:38)
[2017-07-14] MEDS: *HR* OxyCODONE Immed Rel 5 MG TABLET PO PRN (22:18)
[2017-07-15] MEDS: Ketorolac 30 MG/ML VIAL IVP PRN ×4 (01:00→21:39)
[2017-07-15] MEDS: Vancomycin 1,250 MG in D5% in Water 250 ML IVPB SCH ×2 (04:58→17:46)
[2017-07-15] MEDS: *HR* OxyCODONE Immed Rel 5 MG TABLET PO PRN ×3 (04:58→17:48)
[2017-07-15] MEDS: *HR* Heparin 5,000 UNIT/ML VIAL SQ SCH ×2 (04:59→17:47)
[2017-07-15 05:27] LABS: Basophils % 0.7 %; Eosinophils # 0.4 K/mcL (0.0-0.6); Eosinophils % 6.2 %; Hematocrit 39.2 % (37.5-50.1); Hemoglobin 12.5 g/dL (12.9-16.9); Immature Granulocytes % 0.5 % (0-4); Lymphocytes # 1.7 K/mcL (0.6-4.6); Lymphocytes % 29.5 %; Mean Corpuscular HGB Conc 31.9 g/dL (31.6-35.5); Mean Corpuscular Hemoglobin 28.7 pg (28.0-33.3); Mean Corpuscular Volume 89.9 fL (83.0-100.0); Mean Platelet Volume 9.2 fL (9.4-12.4); Monocytes # 0.8 K/mcL (0.0-1.3); Monocytes % 13.9 %; Neutrophils # 2.9 K/mcL (1.6-8.9); Platelet Count 238 K/mcL (140-400); Red Blood Count 4.36 M/mcL (4.19-5.50); Red Cell Distribution Width 13.4 % (11.5-14.5); Segmented Neutrophils % 49.2 %
[2017-07-15 05:39] LABS: BUN/Creatinine Ratio 13 (6-26); Blood Urea Nitrogen 12 mg/dL (6-20); Calcium 8.9 mg/dL (8.6-10.3); Carbon Dioxide 26 mEq/L (23-29); Chloride 108 mEq/L (98-107); Glucose 141 mg/dL (70-105); Osmolality,Calculated 288 (280-300); Potassium 4.2 mEq/L (3.5-5.1); Sodium 138 mEq/L (136-145); eGFR For African Americans > 60 (> 60); eGFR For Non-African Americans > 60 (> 60)
[2017-07-15] MEDS: 0.9 % Sodium Chloride 1,000 ML IVC SCH (05:52)
[2017-07-15] MEDS: Fluconazole 100 MG TABLET PO SCH (09:21)
[2017-07-15] MEDS ORDERED: Vancomycin 1,500 MG in D5% in Water 250 ML IVPB SCH (10:00)
--- NOTE | 2017-07-15 16:54 | General Surgery Progress Note ---
Date of Encounter: 07/15/17 Time of Encounter: 09:20 - Assessment and Plan (1) Pelvic fluid collection Current Visit: Yes Status: Acute We will plan for further evaluation in the upcoming days. He may need replacement of his drain. I have discussed the case with Dr. Lane, he may need an operation with mesh removal. Subjective Patient reports: other (This 37-year-old male who has had repeat repeated pelvic issues associated with an abscess. He was recently in a alf facility with a drain. The drain was inadvertently removed. He is now back in the hospital with an enlarged fluid collection in the pelvis. This is also associated with the so as muscle.) Objective Vital Signs - Last 8 Hours Temp Pulse Resp BP Pulse Ox 07/15/17 14:57 97.6 F 101 16 130/78 92 07/15/17 10:55 97.7 F 98 16 152/86 94 Intake and Output 07/15/17 07/15/17 07/15/17 07:59 15:59 23:59 Intake Total 350 / 350 100 / 100 Output Total 0 / 0 Balance 350 / 350 100 / 100 Intake: IV Fluids 350 / 350 100 / 100 Zosyn 3.375 GM In 0.9 % Sodium 100 / 100 100 / 100 Chloride 100 ML @ 25 mls/hr IVPB Q8H [facility] Rx#:[id number] Vancocin 1,250 MG In Dextrose 5 250 / 250 % 250 ML @ 166.67 mls/hr IVPB Q12H [facility] Rx#:[id number] Oral 0 / 0 Output: Urine 0 / 0 Other: Meal NPO # Voids 1 1 # Bowel Movements 0 0 Weight 101.5 kg Blood Glucose* 105 Patient Weight 07/15/17 23:59 Weight 101.5 kg - General physical appearance well developed, well nourished, no distress - Eyes PERRL, normal ocular movement - Neck Neck exam: no masses, trachea midline - Respiratory normal expansion, normal respiratory effort - Cardiovascular Cardiovascular exam: Present: RRR - Abdomen Abdomen: Present: bowel sounds present - Neurologic CN 2-12 grossly intact, normal sensation - Labs 07/15/17 05:15 07/15/17 05:15 Diabetes panel 07/15/17 Range/Units 05:15 Sodium 138 (136-145) mEq/L Potassium 4.2 (3.5-5.1) mEq/L Chloride 108 H (98-107) mEq/L Carbon Dioxide 26 (23-29) mEq/L BUN 12 (6-20) mg/dL Creatinine 0.92 (0.70-1.30) mg/dL Glucose 141 H (70-105) mg/dL Calcium 8.9 (8.6-10.3) mg/dL Calcium panel 07/15/17 Range/Units 05:15 Calcium 8.9 (8.6-10.3) mg/dL Pituitary panel 07/15/17 Range/Units 05:15 Sodium 138 (136-145) mEq/L Potassium 4.2 (3.5-5.1) mEq/L Chloride 108 H (98-107) mEq/L Carbon Dioxide 26 (23-29) mEq/L BUN 12 (6-20) mg/dL Creatinine 0.92 (0.70-1.30) mg/dL Glucose 141 H (70-105) mg/dL Calcium 8.9 (8.6-10.3) mg/dL Adrenal panel 07/15/17 Range/Units 05:15 Sodium 138 (136-145) mEq/L Potassium 4.2 (3.5-5.1) mEq/L Chloride 108 H (98-107) mEq/L Carbon Dioxide 26 (23-29) mEq/L BUN 12 (6-20) mg/dL Creatinine 0.92 (0.70-1.30) mg/dL Glucose 141 H (70-105) mg/dL Calcium 8.9 (8.6-10.3) mg/dL - Imaging CT scan - abdomen: image reviewed CT Scan - head: image reviewed Consult Discharge Plan - Plan Referrals: Lex Rey MD [Primary Care Provider] -
--- NOTE | 2017-07-15 17:46 | Internal Med Progress Note ---
Date of Encounter: 07/15/17 Time of Encounter: 12:40 - Assessment and plan (1) Pelvic abscess Current Visit: Yes Status: Chronic Assessment and plan: Patient has a complicated history of pelvic fluid collection, has been seen by general surgery, urology and infectious diseases during recent admission. Received pelvic drain placement by interventional radiology, discharged to [facility] for long-term IV antibiotics-vancomycin for MRSA in the urine and pelvic fluid cultures. He reports that his pelvic drain fell out since then and Dr. Rodgers decided to continue IV antibiotics and hold off on further drain placement. He was referred to the emergency room due to the results of his recent CT abdomen/pelvis- Large lower pelvic midline abscess with extension into the left upper pelvic sidewall and adjacent pericolonic wall thickening and enlargement of the left psoas muscle. Inflammatory changes are noted in an adjacent sigmoid loop in the left lower quadrant. Inflammatory changes are probably secondary to abscess. Unclear if this is a new abscess. Continue IV vancomycin and Zosyn and Diflucan for now. Supportive care with when necessary pain medications. Surgery consult appreciated. Pending infectious diseases consult. (2) Hepatitis C Current Visit: Yes Status: Chronic Qualifiers: Viral hepatitis chronicity: chronic Hepatic coma status: without hepatic coma Qualified Code(s): B18.2 - Chronic viral hepatitis C (3) Tobacco abuse Current Visit: Yes Status: Chronic (4) UTI (urinary tract infection) Current Visit: Yes Status: Chronic Assessment and plan: Urine culture from June grew MRSA, currently on IV vancomycin. Per previous records, urine culture also grew yeast at one point, continue Diflucan. Qualifiers: Urinary tract infection type: site unspecified Hematuria presence: with hematuria Qualified Code(s): N39.0 - Urinary tract infection, site not specified; R31.9 - Hematuria, unspecified; R31.9 - Hematuria, unspecified - Subjective Interval history: Reports some inguinal and lower abdominal pain, chronic. No fever, chest pain, palpitations. No vomiting or diarrhea. No penile discharge. No other urinary symptoms but does have some occasional foul-smelling urine at baseline. - Constitutional Vitals: Temp Pulse Resp BP Pulse Ox 97.6 F 101 16 130/78 92 07/15/17 14:57 07/15/17 14:57 07/15/17 14:57 07/15/17 14:57 07/15/17 14:57 General appearance: Present: cooperative, A&O X 3, no acute distress, answers questions appropriately - Respiratory Respiratory exam: Present: CTAB. Absent: accessory muscle use, rales, rhonchi, wheezes - Cardiovascular Cardiovascular exam: Present: RRR, +S1, +S2. Absent: diastolic murmur, gallop, rubs, systolic murmur - GI/Abdominal GI/Abdominal exam: Present: normal bowel sounds, soft (Nondistended, mild tenderness in suprapubic area and bilateral groins.), no peritoneal signs. Absent: distended, tenderness - Extremities Exam Extremities exam: Present: full ROM, warm, radial pulses palpable and symmetrical. Absent: calf tenderness, cyanotic, pedal edema - Neurological Exam Neurological exam: Present: CN II-XII intact, oriented X3, no focal deficits. Absent: pronater drift, facial droop, speech deficit Internal Medicine: Result - Labs CBC & Chem 7: 07/15/17 05:15 07/15/17 05:15 Labs: Short CBC 07/15/17 Range/Units 05:15 WBC 5.8 (4.3-11.1) K/mcL Hgb 12.5 L (12.9-16.9) g/dL Hct 39.2 (37.5-50.1) % Plt Count 238 (140-400) K/mcL Neutrophils # 2.9 (1.6-8.9) K/mcL BMP 07/15/17 05:15 Sodium 138 Potassium 4.2 Chloride 108 H Carbon Dioxide 26 BUN 12 Creatinine 0.92 Glucose 141 H Calcium 8.9 Consult Discharge Plan - Plan Referrals: Lex Rey MD [Primary Care Provider] -
[2017-07-16] MEDS: *HR* OxyCODONE Immed Rel 5 MG TABLET PO PRN ×4 (00:28→22:34)
[2017-07-16] MEDS: Ketorolac 30 MG/ML VIAL IVP PRN ×3 (04:30→18:56)
[2017-07-16] MEDS: Vancomycin 1,250 MG in D5% in Water 250 ML IVPB SCH (05:25)
[2017-07-16] MEDS: Vancomycin 1,500 MG in D5% in Water 250 ML IVPB SCH ×2 (05:39→17:09)
[2017-07-16] MEDS: *HR* Heparin 5,000 UNIT/ML VIAL SQ SCH ×2 (05:40→17:09)
[2017-07-16] MEDS: Fluconazole 100 MG TABLET PO SCH (08:35)
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
[2017-07-17] MEDS: Ketorolac 30 MG/ML VIAL IVP PRN ×4 (01:31→23:02)
[2017-07-17] MEDS: Vancomycin 1,500 MG in D5% in Water 250 ML IVPB SCH ×2 (06:19→16:57)
[2017-07-17] MEDS: *HR* Heparin 5,000 UNIT/ML VIAL SQ SCH ×2 (06:19→16:58)
[2017-07-17] MEDS: *HR* OxyCODONE Immed Rel 5 MG TABLET PO PRN ×3 (06:20→20:46)
[2017-07-17] MEDS: Fluconazole 100 MG TABLET PO SCH (08:02)
--- NOTE | 2017-07-17 11:34 | General Surgery Progress Note ---
<Julia Paula - Last Filed: 07/17/17 11:32> Date of Encounter: 07/17/17 Time of Encounter: 11:32 - Assessment and Plan (1) Pelvic abscess Current Visit: Yes Status: Chronic CT abdomen/pelvis on 07/13/2017-large lower pelvic midline abscess with extension into the left upper pelvic sidewall and adjacent pericolonic wall thickening and enlargement of the left psoas muscle. Inflammatory changes noted in adjacent sigmoid loop in LLQ. Inflammatory changes secondary to abscess. -Patient NPO, IR to place drain. -Body fluid culture, gram stain, and anaerobic cultures placed for IR drained fluid. -Antibiotics per ID/primary team. Continue zosyn and vancomycin. -Pain managment with oxycodone and NSAID. -Urinalysis negative. -FU blood cultures. -As patient improves clinically and inflammation subsides, Dr. Lane will decide when to ultimately replace the surgical mesh placed during hernia repair in 2005. (2) Psoas abscess Current Visit: Yes Status: Acute See management as per above. Subjective Patient reports: no new complaints, feels better, pain is less, voiding w/o difficulty, afebrile Objective Vital Signs - Last 8 Hours Temp Pulse Resp BP Pulse Ox 07/17/17 11:19 98.6 F 83 16 118/72 96 07/17/17 08:02 95 07/17/17 07:00 98.6 F 77 16 122/72 95 07/17/17 03:42 97.7 F 73 18 125/72 96 Intake and Output 07/16/17 07/17/17 07/17/17 23:59 07:59 15:59 Intake Total 1190 / 1190 100 / 100 Output Total 0 / 0 Balance 1190 / 1190 100 / 100 Intake: IV Fluids 350 / 350 100 / 100 Zosyn 3.375 GM In 0.9 % Sodium 100 / 100 100 / 100 Chloride 100 ML @ 25 mls/hr IVPB Q8H [facility] Rx#:[id number] Vancocin 1,500 MG In Dextrose 5 250 / 250 % 250 ML @ 166.667 mls/hr IVPB Q12H [facility] Rx#:[id number] Oral 840 / 840 0 / 0 Output: Urine 0 / 0 Other: Meal snack Percent of Meal Consumed 100% # Voids 1 1 - General physical appearance well developed, well nourished, no distress - Eyes PERRL, normal ocular movement - Respiratory normal expansion, normal respiratory effort, clear to auscultation - Cardiovascular Cardiovascular exam: Present: RRR, regular rhythm, no murmurs/rubs/gallops - Abdomen Abdomen: Present: bowel sounds present, soft Abdominal Tenderness: RLQ, LLQ Hernia: none - Integumentary no rash - Neurologic CN 2-12 grossly intact, normal coordination, normal sensation - Psychiatric oriented to time, oriented to person, oriented to place, speech is normal, memory intact - Labs 07/15/17 05:15 07/15/17 05:15 Consult Discharge Plan - Plan Referrals: Lex Rey MD [Primary Care Provider] - <Iglesia Lane - Last Filed: 07/18/17 14:19> Date of Encounter: 07/17/17 Objective Vital Signs - Last 8 Hours Temp Pulse Resp BP Pulse Ox 07/18/17 12:08 97.5 F L 93 16 150/70 97 07/18/17 08:33 98.3 F 79 16 130/70 100 Intake and Output 07/17/17 07/18/17 07/18/17 23:59 07:59 15:59 Intake Total 610 / 610 240 / 240 1080 / 1080 Output Total Balance 600 / 600 230 / 230 1050 / 1050 Intake: IV Fluids 250 / 250 600 / 600 Diflucan Premix 200 MG/100 ML 100 / 100 200 mg In 100 ml @ 100 mls/hr IVPB DAILY [facility] Rx#:[id number] Vancocin 1,750 MG In 0.9 % 500 / 500 Sodium Chloride 500 ML @ 333. 333 mls/hr IVPB Q12H [facility] Rx#: [id number] Vancocin 1,500 MG In Dextrose 5 250 / 250 % 250 ML @ 166.667 mls/hr IVPB Q12H [facility] Rx#:[id number] Oral 360 / 360 240 / 240 480 / 480 Output: Wound Drainage Abdomen Other: Meal Dinner Breakfast Percent of Meal Consumed 100% 100% # Voids 2 3 Weight 104.35 kg Patient Weight 07/18/17 23:59 Weight 104.35 kg - Labs 07/18/17 09:10 02/13/18 09:10 Diabetes panel 07/18/17 Range/Units 09:10 Sodium 138 (136-145) mEq/L Potassium 3.7 (3.5-5.1) mEq/L Chloride 107 (98-107) mEq/L Carbon Dioxide 26 (23-29) mEq/L BUN 13 (6-20) mg/dL Creatinine 0.77 (0.70-1.30) mg/dL Glucose 177 H (70-105) mg/dL Calcium 9.1 (8.6-10.3) mg/dL Calcium panel 07/18/17 Range/Units 09:10 Calcium 9.1 (8.6-10.3) mg/dL Pituitary panel 07/18/17 Range/Units 09:10 Sodium 138 (136-145) mEq/L Potassium 3.7 (3.5-5.1) mEq/L Chloride 107 (98-107) mEq/L Carbon Dioxide 26 (23-29) mEq/L BUN 13 (6-20) mg/dL Creatinine 0.77 (0.70-1.30) mg/dL Glucose 177 H (70-105) mg/dL Calcium 9.1 (8.6-10.3) mg/dL Adrenal panel 07/18/17 Range/Units 09:10 Sodium 138 (136-145) mEq/L Potassium 3.7 (3.5-5.1) mEq/L Chloride 107 (98-107) mEq/L Carbon Dioxide 26 (23-29) mEq/L BUN 13 (6-20) mg/dL Creatinine 0.77 (0.70-1.30) mg/dL Glucose 177 H (70-105) mg/dL Calcium 9.1 (8.6-10.3) mg/dL - Attending Attestation I examined this patient and my medical decision-making was reviewed with the Resident Physician. I agree with the documented findings, disposition and treatment plan as described except to the extent set forth below. The patient was seen and evaluated on morning rounds with the rest of and the clinical data is discussed with the clinical nurse practitioner. The patient will go for CAT scan drain of so as and suprapubic abscess. He should continue IV antibiotics. I have recommended removal of preperitoneal mesh as soon as he is cleared by infectious disease. This is an unusual procedure. He has yet to decide if he will have this done here or at the [facility] [place] Ig[address] MD FACS
[2017-07-17] MEDS ORDERED: *HR* FentaNYL (PF) 100 MCG/2 ML VIAL IVP ONE (12:56)
[2017-07-17] MEDS ORDERED: *HR* FentaNYL (PF) 100 MCG/2 ML VIAL ONE (13:03)
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
--- NOTE | 2017-07-17 14:19 | IR Procedure Note ---
Date of procedure: 07/17/17 Consent Obtained: Verbal consent, Written consent Timeout: Correct patient and procedure verified, Correct site verified, Time out performed, Skin prep completed Local anesthetic: Lidocaine 1% Indications: abscess Procedure Performed: drain placement Was there an psychologist research assistant present: No Site/Technique: pelvis Results/Findings: 110 cc pus aspirated Estimated blood loss (cc): 5 Complications: None; Tolerated procedure well Post Procedure Treatment Plan: TRACI bulb drainage with 10 cc flushes bid Specimen: 60 cc aspirate
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
[2017-07-18] MEDS: *HR* Heparin 5,000 UNIT/ML VIAL SQ SCH ×2 (06:11→18:12)
[2017-07-18] MEDS: *HR* OxyCODONE Immed Rel 5 MG TABLET PO PRN ×4 (06:19→23:45)
[2017-07-18] MEDS: Ketorolac 30 MG/ML VIAL IVP PRN ×3 (08:15→21:16)
[2017-07-18 09:34] LABS: Hemoglobin 12.6 g/dL (12.9-16.9); Mean Corpuscular HGB Conc 33.2 g/dL (31.6-35.5); Mean Corpuscular Hemoglobin 29.1 pg (28.0-33.3); Mean Corpuscular Volume 87.8 fL (83.0-100.0); Mean Platelet Volume 9.4 fL (9.4-12.4); Platelet Count 228 K/mcL (140-400); Red Blood Count 4.33 M/mcL (4.19-5.50); Red Cell Distribution Width 13.4 % (11.5-14.5)
[2017-07-18 09:47] LABS: BUN/Creatinine Ratio 17 (6-26); Blood Urea Nitrogen 13 mg/dL (6-20); Calcium 9.1 mg/dL (8.6-10.3); Carbon Dioxide 26 mEq/L (23-29); Chloride 107 mEq/L (98-107); Glucose 177 mg/dL (70-105); Osmolality,Calculated 290 (280-300); Potassium 3.7 mEq/L (3.5-5.1); Sodium 138 mEq/L (136-145); eGFR For African Americans > 60 (> 60); eGFR For Non-African Americans > 60 (> 60)
[2017-07-18] MEDS: Fluconazole 200 MG/100 ML 200 MG/100 ML BAG IVPB SCH (10:50)
--- NOTE | 2017-07-18 11:43 | General Surgery Progress Note ---
<Julia Paula Shari - Last Filed: 07/18/17 11:38> Date of Encounter: 07/18/17 Time of Encounter: 09:00 - Assessment and Plan (1) Pelvic abscess Current Visit: Yes Status: Chronic CT abdomen/pelvis on 07/13/2017-large lower pelvic midline abscess with extension into the left upper pelvic sidewall and adjacent pericolonic wall thickening and enlargement of the left psoas muscle. Inflammatory changes noted in adjacent sigmoid loop in LLQ. Inflammatory changes secondary to abscess. -IR placed drain without incident-110 mL of pus aspirated. -Follow-up Body fluid culture and anaerobic cultures placed for IR drained fluid. -Gram stain negative -Antibiotics per ID/primary team. Currently on Zosyn and vancomycin. -Pain managment with oxycodone and NSAID. -Urinalysis negative. -FU blood cultures. -Patient requesting transfer to [facility] for infected preperitoneal operative mesh. This mesh needs to be removed at it as it is causing recurrent complications. Surgery ok for transfer to [facility] as coordinated by primary team. (2) Psoas abscess Current Visit: Yes Status: Acute See management as per above. Subjective Patient reports: no new complaints, feels better, tolerating a regular diet, voiding w/o difficulty, afebrile Objective Vital Signs - Last 8 Hours Temp Pulse Resp BP Pulse Ox 07/18/17 08:33 98.3 F 79 16 130/70 100 07/18/17 03:40 98.1 F 80 15 121/76 96 Intake and Output 07/17/17 07/18/17 07/18/17 23:59 07:59 15:59 Intake Total 610 / 610 240 / 240 480 / 480 Output Total Balance 600 / 600 230 / 230 450 / 450 Intake: IV Fluids 250 / 250 Vancocin 1,500 MG In Dextrose 5 250 / 250 % 250 ML @ 166.667 mls/hr IVPB Q12H [facility] Rx#:[id number] Oral 360 / 360 240 / 240 480 / 480 Output: Wound Drainage Abdomen Other: Meal Dinner Breakfast Percent of Meal Consumed 100% 100% # Voids 2 3 Weight 104.35 kg Patient Weight 07/18/17 23:59 Weight 104.35 kg - General physical appearance well developed, well nourished, no distress - Eyes PERRL, normal ocular movement - Neck Neck exam: no masses, no venous distension - Respiratory normal expansion, normal respiratory effort, clear to percussion, clear to auscultation - Cardiovascular Cardiovascular exam: Present: RRR, no murmurs/rubs/gallops - Abdomen Abdomen: Present: bowel sounds present, soft, non tender Hernia: none - Incision Incision: Present: clean and dry (Surrounding drain.), intact - Psychiatric oriented to time, oriented to person, oriented to place, speech is normal, memory intact - Labs 07/18/17 09:10 07/18/17 09:10 Diabetes panel 07/18/17 Range/Units 09:10 Sodium 138 (136-145) mEq/L Potassium 3.7 (3.5-5.1) mEq/L Chloride 107 (98-107) mEq/L Carbon Dioxide 26 (23-29) mEq/L BUN 13 (6-20) mg/dL Creatinine 0.77 (0.70-1.30) mg/dL Glucose 177 H (70-105) mg/dL Calcium 9.1 (8.6-10.3) mg/dL Calcium panel 07/18/17 Range/Units 09:10 Calcium 9.1 (8.6-10.3) mg/dL Pituitary panel 07/18/17 Range/Units 09:10 Sodium 138 (136-145) mEq/L Potassium 3.7 (3.5-5.1) mEq/L Chloride 107 (98-107) mEq/L Carbon Dioxide 26 (23-29) mEq/L BUN 13 (6-20) mg/dL Creatinine 0.77 (0.70-1.30) mg/dL Glucose 177 H (70-105) mg/dL Calcium 9.1 (8.6-10.3) mg/dL Adrenal panel 07/18/17 Range/Units 09:10 Sodium 138 (136-145) mEq/L Potassium 3.7 (3.5-5.1) mEq/L Chloride 107 (98-107) mEq/L Carbon Dioxide 26 (23-29) mEq/L BUN 13 (6-20) mg/dL Creatinine 0.77 (0.70-1.30) mg/dL Glucose 177 H (70-105) mg/dL Calcium 9.1 (8.6-10.3) mg/dL Consult Discharge Plan - Plan Referrals: Lex Rey MD [Primary Care Provider] - <Iglesia Lane - Last Filed: 07/18/17 14:39> Date of Encounter: 07/18/17 Objective Vital Signs - Last 8 Hours Temp Pulse Resp BP Pulse Ox 07/18/17 12:08 97.5 F L 93 16 150/70 97 07/18/17 08:33 98.3 F 79 16 130/70 100 Intake and Output 07/17/17 07/18/17 07/18/17 23:59 07:59 15:59 Intake Total 610 / 610 240 / 240 1080 / 1080 Output Total 30 30 Balance 600 / 600 230 / 230 1050 / 1050 Intake: IV Fluids 250 / 250 600 / 600 Diflucan Premix 200 MG/100 ML 100 / 100 200 mg In 100 ml @ 100 mls/hr IVPB DAILY [facility] Rx#:[id number] Vancocin 1,750 MG In 0.9 % 500 / 500 Sodium Chloride 500 ML @ 333. 333 mls/hr IVPB Q12H [facility] Rx#: [id number] Vancocin 1,500 MG In Dextrose 5 250 / 250 % 250 ML @ 166.667 mls/hr IVPB Q12H [facility] Rx#:[id number] Oral 360 / 360 240 / 240 480 / 480 Output: Wound Drainage Abdomen Other: Meal Dinner Breakfast Percent of Meal Consumed 100% 100% # Voids 2 3 Weight 104.35 kg Patient Weight 07/18/17 23:59 Weight 104.35 kg - Labs 07/18/17 09:10 07/18/17 09:10 Diabetes panel 07/18/17 Range/Units 09:10 Sodium 138 (136-145) mEq/L Potassium 3.7 (3.5-5.1) mEq/L Chloride 107 (98-107) mEq/L Carbon Dioxide 26 (23-29) mEq/L BUN 13 (6-20) mg/dL Creatinine 0.77 (0.70-1.30) mg/dL Glucose 177 H (70-105) mg/dL Calcium 9.1 (8.6-10.3) mg/dL Calcium panel 07/18/17 Range/Units 09:10 Calcium 9.1 (8.6-10.3) mg/dL Pituitary panel 07/18/17 Range/Units 09:10 Sodium 138 (136-145) mEq/L Potassium 3.7 (3.5-5.1) mEq/L Chloride 107 (98-107) mEq/L Carbon Dioxide 26 (23-29) mEq/L BUN 13 (6-20) mg/dL Creatinine 0.77 (0.70-1.30) mg/dL Glucose 177 H (70-105) mg/dL Calcium 9.1 (8.6-10.3) mg/dL Adrenal panel 07/18/17 Range/Units 09:10 Sodium 138 (136-145) mEq/L Potassium 3.7 (3.5-5.1) mEq/L Chloride 107 (98-107) mEq/L Carbon Dioxide 26 (23-29) mEq/L BUN 13 (6-20) mg/dL Creatinine 0.77 (0.70-1.30) mg/dL Glucose 177 H (70-105) mg/dL Calcium 9.1 (8.6-10.3) mg/dL - Attending Attestation I examined this patient and my medical decision-making was reviewed with the Resident Physician. I agree with the documented findings, disposition and treatment plan as described except to the extent set forth below. The patient is seen and evaluated on morning rounds with the resident. The clinical data is discussed in shared with the clinical nurse practitioner. The patient has CAT scan drain in place. Over 100 mL of purulent material was removed. We discussed removal of mesh. He feels that he would like to go to [facility] have the mesh removed and I think this is completely reasonable. Iglesia Lane MD FACS
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
[2017-07-19] MEDS: *HR* OxyCODONE Immed Rel 5 MG TABLET PO PRN ×5 (04:22→22:32)
[2017-07-19] MEDS: Ketorolac 30 MG/ML VIAL IVP PRN ×3 (04:22→16:37)
[2017-07-19 05:23] LABS: BUN/Creatinine Ratio 18 (6-26); Blood Urea Nitrogen 14 mg/dL (6-20); Calcium 9.5 mg/dL (8.6-10.3); Carbon Dioxide 25 mEq/L (23-29); Chloride 107 mEq/L (98-107); Glucose 156 mg/dL (70-105); Osmolality,Calculated 290 (280-300); Potassium 3.8 mEq/L (3.5-5.1); Sodium 138 mEq/L (136-145); eGFR For African Americans > 60 (> 60); eGFR For Non-African Americans > 60 (> 60)
[2017-07-19 06:30] LABS: Hematocrit 36.7 % (37.5-50.1); Hemoglobin 11.9 g/dL (12.9-16.9); Mean Corpuscular HGB Conc 32.4 g/dL (31.6-35.5); Mean Corpuscular Hemoglobin 28.7 pg (28.0-33.3); Mean Corpuscular Volume 88.4 fL (83.0-100.0); Mean Platelet Volume 9.9 fL (9.4-12.4); Platelet Count 253 K/mcL (140-400); Red Blood Count 4.15 M/mcL (4.19-5.50); Red Cell Distribution Width 13.6 % (11.5-14.5)
[2017-07-19] MEDS: *HR* Heparin 5,000 UNIT/ML VIAL SQ SCH ×2 (06:35→17:53)
[2017-07-19] MEDS: Fluconazole 200 MG/100 ML 200 MG/100 ML BAG IVPB SCH (08:48)
--- NOTE | 2017-07-19 10:05 | Discharge Summary ---
Date of Encounter: 07/19/17 - Discharge Medications Home Medications: Fluconazole [Diflucan] 200 mg PO DAILY #3 tab 06/21/17 [Rx] Ibuprofen [Motrin] 200 mg PO Q6HR PRN 07/14/17 [History] OxyCODONE Immed Rel [Roxicodone 5 MG] 5 mg PO Q6H PRN 07/14/17 [History] Allergies/Adverse Reactions: 3 Allergy/AdvReac Type Severity Reaction Status Date / Time diphenhydramine AdvReac See Verified 06/14/17 09:39 [From Benadryl] Comments tramadol AdvReac Nausea Verified 06/14/17 09:39 Procedures/tests Complete & Pending: Procedures Performed prior 72 hours Category Date Time Status CT drain abd/retro with cath [CT] Routine Cat Scan 07/17/17 Completed Date of admission: 07/14/17 18:58 Primary care physician: Lex Rey MD Consults: 07/14/17 19:31 Consult to Monitoring Analyst [CONS] Routine Reason for SW Consult: Pt has been in ECF FOR IV ANTIBIOTICS. - Patient Status Condition: Fair - Discharge Instructions Follow Up With: Lex Rey MD [Primary Care Provider] - Hospital course: Mr. Diamond is a 37 year old male - Time Spent with Patient Total time spent providing and/or coordinating discharge services: - Constitutional Vitals: Temp Pulse Resp BP Pulse Ox 97.6 F 69 18 98/60 96 07/19/17 07:01 07/19/17 07:01 07/19/17 07:01 07/19/17 07:01 07/19/17 07:01 General appearance: Present: cooperative, A&O X 3, answers questions appropriately
--- NOTE | 2017-07-19 10:38 | Event Note ---
Date of Encounter: 07/19/17 Time of Encounter: 10:37 Spoke with [facility] transfer center. There is waiting list for transfer. They will contact me when/if a bed is available.
--- NOTE | 2017-07-19 11:04 | General Surgery Progress Note ---
<Julia Paula Shari - Last Filed: 07/19/17 11:02> Date of Encounter: 07/19/17 Time of Encounter: 08:15 - Assessment and Plan (1) Pelvic abscess Status: Chronic CT abdomen/pelvis on 07/13/2017-large lower pelvic midline abscess with extension into the left upper pelvic sidewall and adjacent pericolonic wall thickening and enlargement of the left psoas muscle. Inflammatory changes noted in adjacent sigmoid loop in LLQ. Inflammatory changes secondary to abscess. -IR placed drain without incident on 07/17/2017-110 mL of pus aspirated initially- 85 mls output yesterday. -Follow-up Body fluid culture and anaerobic cultures placed for IR drained fluid -preliminarily negative. -Gram stain negative -Antibiotics per ID/primary team. Currently on Zosyn and vancomycin. -Pain managment with oxycodone and NSAID. -Urinalysis negative. -FU blood cultures-preliminarily negative. -Patient requesting transfer to [facility] for infected preperitoneal operative mesh. This mesh needs to be removed at it as it is causing recurrent complications. Surgery ok for transfer to [facility] as coordinated by primary team- awaiting bed availability. (2) Psoas abscess Status: Acute See management as per above. Subjective Patient reports: no new complaints, feels better, pain is less, tolerating a regular diet, afebrile Objective Vital Signs - Last 8 Hours Temp Pulse Resp BP Pulse Ox 07/19/17 10:11 97.9 F 86 16 137/77 97 07/19/17 07:01 97.6 F 69 18 98/60 96 07/19/17 04:13 97.9 F 76 18 108/64 94 Intake and Output 07/18/17 07/19/17 07/19/17 23:59 07:59 15:59 Intake Total 600 / 600 100 / 100 480 / 480 Output Total 45 / 45 26 / 26 20 / 20 Balance 555 / 555 74 / 74 460 / 460 Intake: IV Fluids 600 / 600 100 / 100 Zosyn 3.375 GM In 0.9 % Sodium 100 / 100 100 / 100 Chloride 100 ML @ 25 mls/hr IVPB Q8H [facility] Rx#:[id number] Vancocin 1,750 MG In 0.9 % 500 / 500 Sodium Chloride 500 ML @ 333. 333 mls/hr IVPB Q12H [facility] Rx#: [id number] Oral 0 / 0 0 / 0 480 / 480 Output: Urine 0 / 0 0 / 0 Wound Drainage Abdomen Other: Meal Breakfast Percent of Meal Consumed 100% # Voids 1 # Bowel Movements 0 0 Weight 104.3 kg Patient Weight 07/19/17 23:59 Weight 104.3 kg - General physical appearance well developed, well nourished, no pain - ENT normal nares, normal mucosa - Neck Neck exam: trachea midline - Respiratory normal expansion, normal respiratory effort, clear to auscultation - Cardiovascular Cardiovascular exam: Present: RRR, no murmurs/rubs/gallops - Abdomen Abdomen: Present: bowel sounds present, soft, non tender Hernia: none - Incision Incision: Present: clean and dry (With TRACI drain intact. Serosanguineous drainage visualized.), intact - Neurologic CN 2-12 grossly intact, normal coordination, normal sensation - Musculoskeletal normal gait, normal posture - Psychiatric oriented to time, oriented to person, oriented to place, speech is normal, memory intact - Labs 07/19/17 04:18 07/19/17 04:18 Diabetes panel 07/19/17 Range/Units 04:18 Sodium 138 (136-145) mEq/L Potassium 3.8 (3.5-5.1) mEq/L Chloride 107 (98-107) mEq/L Carbon Dioxide 25 (23-29) mEq/L BUN 14 (6-20) mg/dL Creatinine 0.80 (0.70-1.30) mg/dL Glucose 156 H (70-105) mg/dL Calcium 9.5 (8.6-10.3) mg/dL Calcium panel 07/19/17 Range/Units 04:18 Calcium 9.5 (8.6-10.3) mg/dL Pituitary panel 07/19/17 Range/Units 04:18 Sodium 138 (136-145) mEq/L Potassium 3.8 (3.5-5.1) mEq/L Chloride 107 (98-107) mEq/L Carbon Dioxide 25 (23-29) mEq/L BUN 14 (6-20) mg/dL Creatinine 0.80 (0.70-1.30) mg/dL Glucose 156 H (70-105) mg/dL Calcium 9.5 (8.6-10.3) mg/dL Adrenal panel 07/19/17 Range/Units 04:18 Sodium 138 (136-145) mEq/L Potassium 3.8 (3.5-5.1) mEq/L Chloride 107 (98-107) mEq/L Carbon Dioxide 25 (23-29) mEq/L BUN 14 (6-20) mg/dL Creatinine 0.80 (0.70-1.30) mg/dL Glucose 156 H (70-105) mg/dL Calcium 9.5 (8.6-10.3) mg/dL Consult Discharge Plan - Plan Referrals: Lex Rey MD [Primary Care Provider] - <Iglesia Lane - Last Filed: 07/24/17 08:42> Date of Encounter: 07/19/17 Objective - Labs 07/20/17 05:22 07/20/17 05:22 - Attending Attestation I examined this patient and my medical decision-making was reviewed with the Resident Physician. I agree with the documented findings, disposition and treatment plan as described except to the extent set forth below. The patient is seen and evaluated on morning rounds with rest. He will require mesh removal to resolve his abscess. We discussed the risks and benefits of this and he wishes to have this done at [facility] where the hernia was repaired Iglesia Lane MD FACS
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
[2017-07-19] MEDS: Nicotine 14 MG PATCH.TD24 TD SCH (17:53)
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
[2017-07-20] MEDS: *HR* OxyCODONE Immed Rel 5 MG TABLET PO PRN ×3 (05:08→14:19)
[2017-07-20] MEDS: *HR* Heparin 5,000 UNIT/ML VIAL SQ SCH (05:10)
[2017-07-20 05:35] LABS: Basophils % 0.8 %; Eosinophils # 0.3 K/mcL (0.0-0.6); Eosinophils % 6.3 %; Hematocrit 38.6 % (37.5-50.1); Hemoglobin 12.4 g/dL (12.9-16.9); Immature Granulocytes % 0.6 % (0-4); Lymphocytes # 1.6 K/mcL (0.6-4.6); Lymphocytes % 33.1 %; Mean Corpuscular HGB Conc 32.1 g/dL (31.6-35.5); Mean Corpuscular Hemoglobin 28.4 pg (28.0-33.3); Mean Corpuscular Volume 88.3 fL (83.0-100.0); Mean Platelet Volume 9.1 fL (9.4-12.4); Monocytes # 0.7 K/mcL (0.0-1.3); Monocytes % 14.2 %; Neutrophils # 2.2 K/mcL (1.6-8.9); Platelet Count 240 K/mcL (140-400); Red Blood Count 4.37 M/mcL (4.19-5.50); Red Cell Distribution Width 13.2 % (11.5-14.5)
[2017-07-20 06:29] LABS: BUN/Creatinine Ratio 14 (6-26); Blood Urea Nitrogen 11 mg/dL (6-20); Calcium 9.2 mg/dL (8.6-10.3); Carbon Dioxide 27 mEq/L (23-29); Chloride 107 mEq/L (98-107); Glucose 126 mg/dL (70-105); Osmolality,Calculated 289 (280-300); Potassium 4.1 mEq/L (3.5-5.1); Sodium 139 mEq/L (136-145); eGFR For African Americans > 60 (> 60); eGFR For Non-African Americans > 60 (> 60)
[2017-07-20] MEDS: Nicotine 14 MG PATCH.TD24 TD SCH (09:32)
[2017-07-20] MEDS: Fluconazole 200 MG/100 ML 200 MG/100 ML BAG IVPB SCH (09:33)
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
[2017-07-20 14:14] VITALS: BP 144/95
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
[2017-07-20] MEDS ORDERED: Aminoglycoside Consult 1 EACH MC ONE (16:49)
== END 2017-07-20 16:50 | disposition critical access hospital (66) | DRG 248 ==
LOC: 3ANU 13:50 → EMEROO 13:50 → 3ANU 18:55 → SUATTDRO 18:58
PROVIDERS: ADMIT Internal Medicine; ATTEND Internal Medicine
PROC: IRDRAIN (2017-07-17 12:00)

== ENCOUNTER 2017-11-12 02:26 | Inpatient (IN) ==
[2017-11-12] MEDS ORDERED: 0.9 % Sodium Chloride 1,000 ML IVC ONE (02:55)
--- NOTE | 2017-11-12 02:59 | Emergency Department Note ---
Overdose - [facility] Narrative Medical decision making narrative: 37-year-old male presented for altered mental status. Arrived via the patient' s fiance who called EMS. Patient used methamphetamines in the past per fiance. Patient was acutely altered. A she would not provide an accurate history. Initially the patient was controlling his airway. Patient did require some reversal with Narcan due to his sedation and hypoxia. Patient required chemical restraints with Geodon as well as Ativan during the ED course. Patient became more uncooperative and began coughing up thick purulent sputum concerns for airway obstruction in a patient who is acutely altered and the need for secure airway. Patient was intubated with the [facility]. Given the patient 's thick purulent sputum empiric antibiotics were given. Patient's urine drug screen shows polysubstance abuse with math as well as cocaine. Patient was taken with a secure airway to the CT scanner where imaging of the head was obtained. Patient will be admitted to the ICU for further evaluation. Patient' s acute altered mental status is likely secondary to patient's polysubstance abuse. - Lab Data Lab results reviewed: Yes I reviewed the patient's lab results. Result diagrams: 11/12/17 03:10 11/12/17 03:10 Lab Results 11/12/17 11/12/17 11/12/17 Range/Units 02:55 03:10 03:10 WBC 7.4 (4.3-11.1) K/mcL RBC 4.58 (4.19-5.50) M/mcL Hgb 13.0 (12.9-16.9) g/dL Hct 39.2 (37.5-50.1) % MCV 85.6 (83.0-100.0) fL MCH 28.4 (28.0-33.3) pg MCHC 33.2 (31.6-35.5) g/dL RDW 13.1 (11.5-14.5) % Plt Count 358 (140-400) K/mcL MPV 9.1 L (9.4-12.4) fL Immature Gran % 0.5 (0-4) % Seg Neutrophils % 53.0 % Lymphocytes % 27.9 % Monocytes % 15.5 % Eosinophils % 2.7 % Basophils % 0.4 % Neutrophils # 3.9 (1.6-8.9) K/mcL Lymphocytes # 2.1 (0.6-4.6) K/mcL Monocytes # 1.2 (0.0-1.3) K/mcL Eosinophils # 0.2 (0.0-0.6) K/mcL Basophils # 0.0 (0.0-0.2) K/mcL Sodium 133 L (136-145) mEq/L Potassium 3.3 L (3.5-5.1) mEq/L Chloride 100 (98-107) mEq/L Carbon Dioxide 25 (23-29) mEq/L BUN 17 (6-20) mg/dL Creatinine 1.20 (0.70-1.30) mg/dL Est GFR ( Amer) > 60 (> 60) Est GFR (Non-Af Amer) > 60 (> 60) BUN/Creatinine Ratio 14 (6-26) Glucose 99 (70-105) mg/dL Calculated Osmolality 278 L (280-300) Lactic Acid (0.5-2.2) mmol/L Calcium 9.2 (8.6-10.3) mg/dL Magnesium 2.3 (1.6-2.6) mg/dL Total Bilirubin 0.6 (0.3-1.0) mg/dL Direct Bilirubin 0.2 (0.0-0.2) mg/dL Indirect Bilirubin 0.4 (0.0-1.2) mg/dL AST 85 H (13-39) Units/L ALT 79 H (7-52) Units/L Alkaline Phosphatase 84 (34-104) Units/L Creatine Kinase 818 H (30-223) Units/L Serum Total Protein 7.7 (6.4-8.9) g/dL Albumin 3.8 (3.5-5.7) g/dL Globulin 3.9 H (2.4-3.5) g/dL Albumin/Globulin Ratio 1.0 L (1.1-2.2) Urine Color (Yellow) Urine Clarity (Clear) Urine pH (5.0-8.0) pH Units Ur Specific [place] (1.010-1.025) Urine Protein (Neg-Trace) mg/dL Urine Glucose (UA) (Normal) mg/dL Urine Ketones (Negative) mg/dL Urine Blood (Negative) Urine Nitrite (Negative) Urine Bilirubin (Negative) Urine Urobilinogen (Normal) mg/dL Ur Leukocyte Esterase (Negative) Urine Microscopic RBC (0-3) per hpf Urine Microscopic WBC (0-3) per hpf Ur Squamous Epith Cells (None-Few) per lpf Urine Bacteria (None-Few) per hpf Salicylates < 2.5 L (15.0-30.0) mg/dL Urine Opiates Screen Negative (Nyelun=028) ng/mL Acetaminophen < 10 L (10-20) mcg/mL Ur Barbiturates Screen Negative (Lxicoy=634) ng/mL Ur Phencyclidine Scrn Negative (Cutoff=25) ng/mL Ur Amphetamines Screen Positive H (Zhddud=4056) ng/mL U Benzodiazepines Scrn Negative (Fnqmfj=346) ng/mL Urine Cocaine Screen Positive H (Cutoff= 300) ng/mL U Marijuana (THC) Screen Negative (Cutoff = 50) ng/mL Ethyl Alcohol < 10 (Less than 10) mg/dL 11/12/17 11/12/17 Range/Units 03:10 03:34 WBC (4.3-11.1) K/mcL RBC (4.19-5.50) M/mcL Hgb (12.9-16.9) g/dL Hct (37.5-50.1) % MCV (83.0-100.0) fL MCH (28.0-33.3) pg MCHC (31.6-35.5) g/dL RDW (11.5-14.5) % Plt Count (140-400) K/mcL MPV (9.4-12.4) fL Immature Gran % (0-4) % Seg Neutrophils % % Lymphocytes % % Monocytes % % Eosinophils % % Basophils % % Neutrophils # (1.6-8.9) K/mcL Lymphocytes # (0.6-4.6) K/mcL Monocytes # (0.0-1.3) K/mcL Eosinophils # (0.0-0.6) K/mcL Basophils # (0.0-0.2) K/mcL Sodium (136-145) mEq/L Potassium (3.5-5.1) mEq/L Chloride (98-107) mEq/L Carbon Dioxide (23-29) mEq/L BUN (6-20) mg/dL Creatinine (0.70-1.30) mg/dL Est GFR ( Amer) (> 60) Est GFR (Non-Af Amer) (> 60) BUN/Creatinine Ratio (6-26) Glucose (70-105) mg/dL Calculated Osmolality (280-300) Lactic Acid 1.1 (0.5-2.2) mmol/L Calcium (8.6-10.3) mg/dL Magnesium (1.6-2.6) mg/dL Total Bilirubin (0.3-1.0) mg/dL Direct Bilirubin (0.0-0.2) mg/dL Indirect Bilirubin (0.0-1.2) mg/dL AST (13-39) Units/L ALT (7-52) Units/L Alkaline Phosphatase (34-104) Units/L Creatine Kinase (30-223) Units/L Serum Total Protein (6.4-8.9) g/dL Albumin (3.5-5.7) g/dL Globulin (2.4-3.5) g/dL Albumin/Globulin Ratio (1.1-2.2) Urine Color Yellow (Yellow) Urine Clarity Cloudy A (Clear) Urine pH 6.0 (5.0-8.0) pH Units Ur Specific [place] 1.025 (1.010-1.025) Urine Protein >=300 H (Neg-Trace) mg/dL Urine Glucose (UA) Normal (Normal) mg/dL Urine Ketones Negative (Negative) mg/dL Urine Blood Large H (Negative) Urine Nitrite Negative (Negative) Urine Bilirubin Negative (Negative) Urine Urobilinogen Normal (Normal) mg/dL Ur Leukocyte Esterase Small H (Negative) Urine Microscopic RBC 50-100 H (0-3) per hpf Urine Microscopic WBC 30-50 H (0-3) per hpf Ur Squamous Epith Cells Few (None-Few) per lpf Urine Bacteria Few (None-Few) per hpf Salicylates (15.0-30.0) mg/dL Urine Opiates Screen (Trzrlb=042) ng/mL Acetaminophen (10-20) mcg/mL Ur Barbiturates Screen (Djonrg=649) ng/mL Ur Phencyclidine Scrn (Cutoff=25) ng/mL Ur Amphetamines Screen (Sdpwqo=0979) ng/mL U Benzodiazepines Scrn (Dyegty=409) ng/mL Urine Cocaine Screen (Cutoff= 300) ng/mL U Marijuana (THC) Screen (Cutoff = 50) ng/mL Ethyl Alcohol (Less than 10) mg/dL - Radiology Data Radiology results reviewed: Yes I reviewed the patient's radiology results. Chest X-Ray 11/12/17 02:56 IMPRESSION: No acute cardiopulmonary disease. D/ / Tao Claudio MD / Tao Claudio MD Interpreting Provider: Tao Claudio MD Head CT 11/12/17 02:55 IMPRESSION: No acute intracranial abnormality. D/ / Hugo Sherwood MD / Hugo Sherwood MD Interpreting Provider: Hugo Sherwood MD Chest X-Ray 11/12/17 04:36 IMPRESSION: 1. The enteric tube tip is approximately 5 cm above the carito. 2. Diffuse airspace disease may represent pulmonary edema. D/ / Hugo Sherwood MD / Hugo Sherwood MD Interpreting Provider: Hugo Sherwood MD - EKG Data EKG attestation: Yes I reviewed and interpreted this EKG. 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 Patient does have a history of substance abuse. Reports of using meth and heroin. Patient is not able to provide an accurate history. Patient was given Narcan prehospital due to respiratory depression. Patient was not unresponsive at the patient was slow to arouse. Patient is not able to provide an accurate history. Patient appears sleepy. Patient does awaken with verbal commands. There is no family at bedside currently right any additional history. Workup initiated. - Related Data Home Medications Medication Instructions Recorded Confirmed Ibuprofen [Motrin] 200 mg PO Q6HR PRN 07/14/17 07/14/17 OxyCODONE Immed Rel [Roxicodone 5 5 mg PO Q6H PRN 07/14/17 07/14/17 MG] Previous Rx's Medication Instructions Recorded Fluconazole [Diflucan] 200 mg PO DAILY #3 tab 06/21/17 Heparin 5,000 unit SQ Q12HCO vial 07/20/17 Nicotine Patch [Nicoderm] 14 mg TD DAILY patch.td24 07/20/17 Allergies Allergy/AdvReac Type Severity Reaction Status Date / Time diphenhydramine AdvReac See Verified 11/12/17 02:30 [From Benadryl] Comments tramadol AdvReac Nausea Verified 11/12/17 02:30 Limitations: ROS unobtainable due to patients medical condition Past Medical History - Past Medical History Source: unable to obtain Medical history: Reports: hepatitis, other Surgical history: Reports: herniorrhaphy, other Psychiatric history: Reports: no psych history - Social History Smoking Status: Current every day smoker Smokeless Tobacco Status: No Alcohol use: Reports: none Drug use: Reports: cocaine, opiates, methamphetamine, IV Drug Use Physical Exam - General Limitations: no limitations General appearance: alert, appears intoxicated - Head Head exam: atraumatic, normocephalic, normal inspection - Eye Eye exam: Present: PERRL, EOMI, miosis - ENT ENT exam: normal exam, mucous membranes moist - Neck Neck exam: Present: normal inspection - Chest Chest inspection: Present: normal inspection - Respiratory Respiratory exam: Present: other (Diffusely decreased lung sounds). Absent: respiratory distress, accessory muscle use - Cardiovascular Cardiovascular exam: Present: regular rate - Abdominal Exam Abdominal exam: Present: soft, Non-Tender - Extremities Exam Extremities exam: Present: other (Evidence of picking and track whitten on the upper extremities cigarette koehler on the distal left hand.) - Back Exam Back exam: Present: normal inspection - Neurological Exam Neurological exam: Present: alert, CN II-XII intact - Expanded Neurological Exam Speech: Present: fluid speech Cranial nerves: EOM function (II, III, IV, ): Normal, facial sensation (V): Normal, facial palsy (VII): Normal, spinal accessory function (XI): Normal, tongue deviation (XII): Normal Motor strength - LUE: 5/5 Motor strength - RUE: 5/5 Motor strength - LLE: 5/5 Motor strength - RLE: 5/5 Coma Scale Eye Opening: Spontaneous Coma Scale Motor Response: Obeys Commands Coma Scale Verbal Response: Confused Coma Scale Total: 14 - Skin Skin exam: Present: warm, dry, intact, normal color Course Course Narrative: Patient is acutely altered. Patient's not able to make sound decisions. Patient will be pink slipped. Workup initiated. Patient's etiology of his altered mental status is likely drug related. Patient will get screening labs as well as head CT. Patient will get reversed with Narcan furthermore in the emergency department. Disposition pending. - Reevaluation(s) Reevaluation #1: Patient required some chemical sedation with Haldol and Ativan. Patient continued to be persistently agitated. Patient became tachycardic in the 120s to 130s. Patient's been coughing and at this point the patient has concerns for airway and possible aspiration. Patient has acute mental status change which warrants emergent head CT. Patient's airway will be controlled. Time: 04:19 Reevaluation #2: Patient became more and more agitated. Patient became very tachypnea can wince hypoxic. Patient was also tachycardic. Concerns for airway. Patient likely aspirated given his cough and increasing sputum. Patient will get blood cultures and started on prophylactic antibiotics. Awaiting head CT. Patient's mental status prior to intubation was that he was confused moving all extremities. Mumbling incomprehensible words with continuous coughing purulent sputum. Patient's ET tube was advanced 1 cm following post intubation films. Time: 04:39 Vital Signs Temperature 98.1 F 11/12/17 02:31 Pulse Rate 91 11/12/17 02:31 Respiratory Rate 23 11/12/17 02:31 Blood Pressure 130/83 11/12/17 02:31 O2 Sat by Pulse Oximetry 92 11/12/17 02:31 Temperature 97.6 F 11/12/17 06:15 Pulse Rate 93 11/12/17 06:15 Respiratory Rate 18 11/12/17 06:24 Blood Pressure 95/60 11/12/17 06:24 O2 Sat by Pulse Oximetry 99 11/12/17 06:24 Oxygen Delivery Oxygen Delivery Ventilator Procedures - Intubation Time out performed: Yes sedative: Etomidate Mg Given: 20 paralytic: Rocuronium Mg Given: 100 Laryngoscope: Eileen ET Tube Size: 7.5 ET Tube Uncuffed: Yes Tube Secured Depth (cm): 24 Tube Secured Location: lips Tube Placement Confirmation: visualized tube passing through cords, equal breath sounds bilaterally, no breath sounds over epigastrium, confirmation by capnometry Patient Tolerated Procedure: well Intubation Complications: none Disposition Clinical Impression: Substance abuse Altered mental status Qualifiers: Altered mental status type: unspecified Qualified Code(s): R41.82 - Altered mental status, unspecified UTI (urinary tract infection) Qualifiers: Urinary tract infection type: site unspecified Hematuria presence: without hematuria Qualified Code(s): N39.0 - Urinary tract infection, site not specified Disposition: Admitted As Inpatient Condition: Serious S.B.Sridhar - S.B.ADayana Situation: Demographics Background: Presenting Complaint Assessment: Vital Signs, Course and respsone to treatment, Patient/Family Expectation Recommendation: Barrier(s) to disposition, Recommendation based on pending studies, treatments, or consults S.B.A.James Report Given to: Dr. Eugenio Mcfadden Repor Time: 04:58
[2017-11-12] MEDS ORDERED: Ziprasidone injection 20 MG/ML VIAL IM ONE (03:20)
[2017-11-12 03:26] LABS: Basophils % 0.4 %; Eosinophils # 0.2 K/mcL (0.0-0.6); Eosinophils % 2.7 %; Hematocrit 39.2 % (37.5-50.1); Immature Granulocytes % 0.5 % (0-4); Lymphocytes # 2.1 K/mcL (0.6-4.6); Lymphocytes % 27.9 %; Mean Corpuscular HGB Conc 33.2 g/dL (31.6-35.5); Mean Corpuscular Hemoglobin 28.4 pg (28.0-33.3); Mean Corpuscular Volume 85.6 fL (83.0-100.0); Mean Platelet Volume 9.1 fL (9.4-12.4); Monocytes # 1.2 K/mcL (0.0-1.3); Monocytes % 15.5 %; Neutrophils # 3.9 K/mcL (1.6-8.9); Platelet Count 358 K/mcL (140-400); Red Blood Count 4.58 M/mcL (4.19-5.50); Red Cell Distribution Width 13.1 % (11.5-14.5)
[2017-11-12] MEDS ORDERED: *HR* LORazepam 2 MG/ML VIAL IM ONE (03:33)
[2017-11-12] MEDS ORDERED: *HR* LORazepam 2 MG/ML VIAL IVP ONE (03:33)
[2017-11-12 03:42] LABS: Bilirubin,Urine Negative (Negative); Blood,Urine Large (Negative); Clarity,Urine Cloudy (Clear); Color,Urine Yellow (Yellow); Glucose,Urine (UA) Normal (Normal); Ketones,Urine Negative (Negative); Leukocyte Esterase,Urine Small (Negative); Nitrite,Urine Negative (Negative); Protein,Urine >=300 mg/dL (Neg-Trace); Specific Gravity,Urine 1.025 (1.010-1.025); Urobilinogen,Urine Normal (Normal)
[2017-11-12 03:43] LABS: Acetaminophen < 10 mcg/mL (10-20); Alanine Aminotransferase 79 Units/L (7-52); Albumin 3.8 g/dL (3.5-5.7); Alkaline Phosphatase 84 Units/L (34-104); Aspartate Amino Transferase 85 Units/L (13-39); BUN/Creatinine Ratio 14 (6-26); Bilirubin,Direct 0.2 mg/dL (0.0-0.2); Bilirubin,Indirect 0.4 mg/dL (0.0-1.2); Bilirubin,Total 0.6 mg/dL (0.3-1.0); Blood Urea Nitrogen 17 mg/dL (6-20); Calcium 9.2 mg/dL (8.6-10.3); Carbon Dioxide 25 mEq/L (23-29); Chloride 100 mEq/L (98-107); Creatine Kinase 818 Units/L (30-223); Ethanol < 10 mg/dL (Less than 10); Globulin 3.9 g/dL (2.4-3.5); Glucose 99 mg/dL (70-105); Osmolality,Calculated 278 (280-300); Potassium 3.3 mEq/L (3.5-5.1); Salicylate < 2.5 mg/dL (15.0-30.0); Sodium 133 mEq/L (136-145); Total Protein 7.7 g/dL (6.4-8.9); eGFR For African Americans > 60 (> 60); eGFR For Non-African Americans > 60 (> 60)
[2017-11-12 03:50] LABS: RBC,Urine 50-100 per hpf (0-3); WBC,Urine 30-50 per hpf (0-3)
[2017-11-12 03:51] LABS: Bacteria,Urine Few per hpf (None-Few); Squamous Epithelial Cell,Urine Few per lpf (None-Few)
[2017-11-12 03:52] LABS: Amphetamine Screen,Urine Positive ng/mL (Cutoff=1000); Barbiturate Screen,Urine Negative ng/mL (Cutoff=200); Benzodiazepines Screen,Urine Negative ng/mL (Cutoff=200); Cannabinoid Screen,Urine Negative ng/mL (Cutoff = 50); Opiate Screen,Urine Negative ng/mL (Cutoff=300); Phencyclidine Screen,Urine Negative ng/mL (Cutoff=25)
[2017-11-12 04:17] LABS: Cocaine Screen,Urine Positive ng/mL (Cutoff= 300)
[2017-11-12] MEDS ORDERED: *HR* Rocuronium Bromide 50 MG/5 ML VIAL IVP ONE (04:28)
[2017-11-12] MEDS ORDERED: *HR* Etomidate 40 MG/20 ML VIAL IVP ONE (04:28)
[2017-11-12] MEDS ORDERED: Piperacillin/Tazobactam 3.375 GM in 0.9 % Sodium Chloride Mini Bag 100 ML IVPB ONE (04:38)
[2017-11-12] MEDS ORDERED: Ringers Solution, Lactated 1,000 ML ONE (05:19)
[2017-11-12 05:27] LABS: ABG Base Excess -4 mEq/L (-2 to 3); ABG HCO3 25 mEq/L (21-27); ABG Oxygen Saturation 99 % (95-98); ABG PCO2 61 mmHg (35-45); ABG PH 7.22 pH Units (7.32-7.45); ABG PO2 170 mmHg (85-104); ABG TCO2 27 mEq/L (20-26); Blood Gas Modality VC; Blood Gas PEEP 5 cm H2O; Blood Gas Respiration Rate 14; Blood Gas VT 500 cc
[2017-11-12] MEDS: Ringers Solution, Lactated 1,000 ML IVC SCH ×3 (05:30→19:30)
[2017-11-12 05:50] LABS: Magnesium 2.3 mg/dL (1.6-2.6)
[2017-11-12] MEDS ORDERED: *HR* Midazolam HCl 2 MG/2 ML VIAL ONE (06:00)
[2017-11-12] MEDS ORDERED: *HR* Midazolam HCl 2 MG/2 ML VIAL IVP ONE (06:00)
[2017-11-12] MEDS ORDERED: Naloxone 0.4 MG/ML INJ IVP PRN (06:05)
[2017-11-12] MEDS ORDERED: D5% in 0.45% NACL 1,000 ML IVC SCH (06:15)
--- NOTE | 2017-11-12 06:19 | Emergency Department Note ---
Disposition Clinical Impression: Substance abuse Altered mental status Qualifiers: Altered mental status type: unspecified Qualified Code(s): R41.82 - Altered mental status, unspecified Disposition: Admitted As Inpatient Condition: Serious General Adult HPI - General Chief complaint: ED Overdose Stated complaint: Reaction to Drugs Time Seen by Provider: 11/12/17 02:28 Source: patient, EMS Mode of arrival: EMS Limitations: no limitations Nursing Notes Reviewed: Yes Vital Signs Reviewed: Yes - History of Present Illness Pain Scale: 0 - Related Data Home Medications Medication Instructions Recorded Confirmed Ibuprofen [Motrin] 200 mg PO Q6HR PRN 07/14/17 07/14/17 OxyCODONE Immed Rel [Roxicodone 5 5 mg PO Q6H PRN 07/14/17 07/14/17 MG] Previous Rx's Medication Instructions Recorded Fluconazole [Diflucan] 200 mg PO DAILY #3 tab 06/21/17 Heparin 5,000 unit SQ Q12HCO vial 07/20/17 Nicotine Patch [Nicoderm] 14 mg TD DAILY patch.td24 07/20/17 Allergies Allergy/AdvReac Type Severity Reaction Status Date / Time diphenhydramine AdvReac See Verified 11/12/17 02:30 [From Benadryl] Comments tramadol AdvReac Nausea Verified 11/12/17 02:30 Past Medical History - Past Medical History Medical history: Reports: hepatitis, other Surgical history: Reports: herniorrhaphy, other Psychiatric history: Reports: no psych history - Social History Smoking Status: Current every day smoker Smokeless Tobacco Status: No Alcohol use: Reports: none Drug use: Reports: cocaine, opiates, methamphetamine, IV Drug Use Physical Exam - General Limitations: no limitations General appearance: alert, appears intoxicated Course Vital Signs Temperature 98.1 F 11/12/17 02:31 Pulse Rate 91 11/12/17 02:31 Respiratory Rate 23 11/12/17 02:31 Blood Pressure 130/83 11/12/17 02:31 O2 Sat by Pulse Oximetry 92 11/12/17 02:31 Temperature 98.1 F 11/12/17 02:31 Pulse Rate 94 11/12/17 05:43 Respiratory Rate 18 11/12/17 06:24 Blood Pressure 95/60 11/12/17 06:24 O2 Sat by Pulse Oximetry 99 11/12/17 06:24 Oxygen Delivery Oxygen Delivery Ventilator Medical Decision Making - Lab Data Result diagrams: 11/12/17 03:10 11/12/17 03:10 Lab Results 11/12/17 11/12/17 11/12/17 Range/Units 02:55 03:10 03:10 WBC 7.4 (4.3-11.1) K/mcL RBC 4.58 (4.19-5.50) M/mcL Hgb 13.0 (12.9-16.9) g/dL Hct 39.2 (37.5-50.1) % MCV 85.6 (83.0-100.0) fL MCH 28.4 (28.0-33.3) pg MCHC 33.2 (31.6-35.5) g/dL RDW 13.1 (11.5-14.5) % Plt Count 358 (140-400) K/mcL MPV 9.1 L (9.4-12.4) fL Immature Gran % 0.5 (0-4) % Seg Neutrophils % 53.0 % Lymphocytes % 27.9 % Monocytes % 15.5 % Eosinophils % 2.7 % Basophils % 0.4 % Neutrophils # 3.9 (1.6-8.9) K/mcL Lymphocytes # 2.1 (0.6-4.6) K/mcL Monocytes # 1.2 (0.0-1.3) K/mcL Eosinophils # 0.2 (0.0-0.6) K/mcL Basophils # 0.0 (0.0-0.2) K/mcL Sodium 133 L (136-145) mEq/L Potassium 3.3 L (3.5-5.1) mEq/L Chloride 100 (98-107) mEq/L Carbon Dioxide 25 (23-29) mEq/L BUN 17 (6-20) mg/dL Creatinine 1.20 (0.70-1.30) mg/dL Est GFR ( Amer) > 60 (> 60) Est GFR (Non-Af Amer) > 60 (> 60) BUN/Creatinine Ratio 14 (6-26) Glucose 99 (70-105) mg/dL Calculated Osmolality 278 L (280-300) Lactic Acid (0.5-2.2) mmol/L Calcium 9.2 (8.6-10.3) mg/dL Magnesium 2.3 (1.6-2.6) mg/dL Total Bilirubin 0.6 (0.3-1.0) mg/dL Direct Bilirubin 0.2 (0.0-0.2) mg/dL Indirect Bilirubin 0.4 (0.0-1.2) mg/dL AST 85 H (13-39) Units/L ALT 79 H (7-52) Units/L Alkaline Phosphatase 84 (34-104) Units/L Creatine Kinase 818 H (30-223) Units/L Serum Total Protein 7.7 (6.4-8.9) g/dL Albumin 3.8 (3.5-5.7) g/dL Globulin 3.9 H (2.4-3.5) g/dL Albumin/Globulin Ratio 1.0 L (1.1-2.2) Urine Color (Yellow) Urine Clarity (Clear) Urine pH (5.0-8.0) pH Units Ur Specific [place] (1.010-1.025) Urine Protein (Neg-Trace) mg/dL Urine Glucose (UA) (Normal) mg/dL Urine Ketones (Negative) mg/dL Urine Blood (Negative) Urine Nitrite (Negative) Urine Bilirubin (Negative) Urine Urobilinogen (Normal) mg/dL Ur Leukocyte Esterase (Negative) Urine Microscopic RBC (0-3) per hpf Urine Microscopic WBC (0-3) per hpf Ur Squamous Epith Cells (None-Few) per lpf Urine Bacteria (None-Few) per hpf Salicylates < 2.5 L (15.0-30.0) mg/dL Urine Opiates Screen Negative (Kxbslh=001) ng/mL Acetaminophen < 10 L (10-20) mcg/mL Ur Barbiturates Screen Negative (Sxcarm=715) ng/mL Ur Phencyclidine Scrn Negative (Cutoff=25) ng/mL Ur Amphetamines Screen Positive H (Tudsvw=0373) ng/mL U Benzodiazepines Scrn Negative (Ziutro=495) ng/mL Urine Cocaine Screen Positive H (Cutoff= 300) ng/mL U Marijuana (THC) Screen Negative (Cutoff = 50) ng/mL Ethyl Alcohol < 10 (Less than 10) mg/dL 11/12/17 11/12/17 Range/Units 03:10 03:34 WBC (4.3-11.1) K/mcL RBC (4.19-5.50) M/mcL Hgb (12.9-16.9) g/dL Hct (37.5-50.1) % MCV (83.0-100.0) fL MCH (28.0-33.3) pg MCHC (31.6-35.5) g/dL RDW (11.5-14.5) % Plt Count (140-400) K/mcL MPV (9.4-12.4) fL Immature Gran % (0-4) % Seg Neutrophils % % Lymphocytes % % Monocytes % % Eosinophils % % Basophils % % Neutrophils # (1.6-8.9) K/mcL Lymphocytes # (0.6-4.6) K/mcL Monocytes # (0.0-1.3) K/mcL Eosinophils # (0.0-0.6) K/mcL Basophils # (0.0-0.2) K/mcL Sodium (136-145) mEq/L Potassium (3.5-5.1) mEq/L Chloride (98-107) mEq/L Carbon Dioxide (23-29) mEq/L BUN (6-20) mg/dL Creatinine (0.70-1.30) mg/dL Est GFR ( Amer) (> 60) Est GFR (Non-Af Amer) (> 60) BUN/Creatinine Ratio (6-26) Glucose (70-105) mg/dL Calculated Osmolality (280-300) Lactic Acid 1.1 (0.5-2.2) mmol/L Calcium (8.6-10.3) mg/dL Magnesium (1.6-2.6) mg/dL Total Bilirubin (0.3-1.0) mg/dL Direct Bilirubin (0.0-0.2) mg/dL Indirect Bilirubin (0.0-1.2) mg/dL AST (13-39) Units/L ALT (7-52) Units/L Alkaline Phosphatase (34-104) Units/L Creatine Kinase (30-223) Units/L Serum Total Protein (6.4-8.9) g/dL Albumin (3.5-5.7) g/dL Globulin (2.4-3.5) g/dL Albumin/Globulin Ratio (1.1-2.2) Urine Color Yellow (Yellow) Urine Clarity Cloudy A (Clear) Urine pH 6.0 (5.0-8.0) pH Units Ur Specific [place] 1.025 (1.010-1.025) Urine Protein >=300 H (Neg-Trace) mg/dL Urine Glucose (UA) Normal (Normal) mg/dL Urine Ketones Negative (Negative) mg/dL Urine Blood Large H (Negative) Urine Nitrite Negative (Negative) Urine Bilirubin Negative (Negative) Urine Urobilinogen Normal (Normal) mg/dL Ur Leukocyte Esterase Small H (Negative) Urine Microscopic RBC 50-100 H (0-3) per hpf Urine Microscopic WBC 30-50 H (0-3) per hpf Ur Squamous Epith Cells Few (None-Few) per lpf Urine Bacteria Few (None-Few) per hpf Salicylates (15.0-30.0) mg/dL Urine Opiates Screen (Hlcwau=597) ng/mL Acetaminophen (10-20) mcg/mL Ur Barbiturates Screen (Fjesri=597) ng/mL Ur Phencyclidine Scrn (Cutoff=25) ng/mL Ur Amphetamines Screen (Xkvroc=2320) ng/mL U Benzodiazepines Scrn (Kfbcra=883) ng/mL Urine Cocaine Screen (Cutoff= 300) ng/mL U Marijuana (THC) Screen (Cutoff = 50) ng/mL Ethyl Alcohol (Less than 10) mg/dL Critical Care Time Critical Care Time: Yes Total Critical Care Time: 40 Attestation: Critical care performed: Time is exclusive of separately billable procedures. Time includes: direct patient care, patient reassessment, coordination of patient care, interpretation of data (laboratory data, radiology data, and respiratory data), review of patient's medical records, medical consultation and documentation of patient care. Procedures included in critical care time: Procedures excluded from critical care time: Endotracheal intubation Attestation Statement - Attestation Attestation: I, Frandy Burk MD, personally evaluated this patient and discussed their management with the resident physician. I reviewed the resident's note and agree with the documented findings, medical decision making, and plan of care. 37-year-old male presents to the emergency department for altered mental status secondary to substance abuse. He reportedly used methamphetamine about a week ago and has "not been right since. He has not slept for 6 days and has been hyper and agitated. On arrival here the patient is somewhat agitated and combative at times and then seems to fall asleep. He became more agitated as we were trying to evaluate him in the emergency department and had to be restrained. He was given Geodon 20 mg IM. He also received Ativan. This did seem to sedate patient however then started having intermittent coughing spells of coughing up a lot of thick dark sputum and became more short of breath with oxygen saturations in the lower 90s. Patient then underwent endotracheal intubation by Dr. Krueger. On examination patient is a well-developed well-nourished male in no acute distress but is altered and agitated. Unable to provide any significant history or review of systems. Cyanosis or diaphoresis. Rest sounds are equal bilaterally. No rales or wheezes noted. Heart regular rate and rhythm. Abdomen soft and nontender with normal bowel sounds. No gross focal neurological deficits. Labs reviewed. Chest x-ray negative. Head CT negative. The hospitalist, Dr. Becker, was consulted and accepted admission of the patient.
[2017-11-12] MEDS ORDERED: Potassium Chloride 40 MEQ, Lidocaine 1% 2 ML in D5% in Water 500 ML IVPB ONE (06:36)
--- NOTE | 2017-11-12 06:42 | Internal Med History&Physical ---
Date of Encounter: 11/12/17 Time of Encounter: 05:00 Internal Medicine - H&P: HPI Chief complaint: Shortness of breath Admitted From: Home Plans for Post Hospital Care: Home History of present illness: Mr. Dimaond is a 37 year old male presented to ER for shortness of breath. Past medical history is significant for hernia S/P repairment, multidrug abuse. Patient was intubated in ER. History was obtained from patient's fiance. Patient takes methamphetamine 4 days ago. Patient is very excited. He has no eating and no sleep in last 4 days. Has hallucination and keep moving. Patient has shaking of the body and fighting with people. Patient has no fever , no nausea or vomiting. Patient has shortness of breath and was sent to ER. In the emergency room, patient is combative, refusing examination. Patient cannot be sedated by Lyndondacedric john. He was finally intubated. Chest x-ray shows pulmonary edema. Patient was concerned with aspiration pneumonia. Patient was started antibiotic and admitted to ICU for close monitoring. Past Med Surg Social Fam HX - Past Medical History Medical history: hepatitis, other Additional medical history: Abcess in pelvic are, Psychiatric history: no psych history - Past Surgical History Surgical History: herniorrhaphy, other Additional surgical history: antonio drain - Social History Smoking Status: Current every day smoker Smokeless Tobacco Status: No Alcohol use: none Drug use: cocaine, opiates, methamphetamine, IV Drug Use - Family History Mother Living Status: Father Living Status: Still Living Hx Family Cardiac Disorders: Yes Hx Family Endocrine Disorder: Yes Internal Medicine - H&P: Meds Fluconazole [Diflucan] 200 mg PO DAILY #3 tab 06/21/17 [Rx] Ibuprofen [Motrin] 200 mg PO Q6HR PRN 07/14/17 [History] OxyCODONE Immed Rel [Roxicodone 5 MG] 5 mg PO Q6H PRN 07/14/17 [History] Heparin 5,000 unit SQ Q12HCO vial 07/20/17 [Rx] Nicotine Patch [Nicoderm] 14 mg TD DAILY patch.td24 07/20/17 [Rx] 3 Allergy/AdvReac Type Severity Reaction Status Date / Time diphenhydramine AdvReac See Verified 11/12/17 02:30 [From Benadryl] Comments tramadol AdvReac Nausea Verified 11/12/17 02:30 All Systems PM: A 10-system review of systems was performed and is negative for pertinent findings except as documented above in the HPI. - Constitutional Vitals: Temp Pulse Resp BP Pulse Ox 98.1 F 94 18 95/60 99 11/12/17 02:31 11/12/17 05:43 11/12/17 06:24 11/12/17 06:24 11/12/17 06:24 General appearance: Present: no acute distress Exam: Intubated - Head Head exam: Present: atraumatic, normocephalic - Eye Eye exam: Present: PERRL, conjuntiva pink, sclera anicteric Pupils: Present: PERRL - Neck Neck exam general surgery: Present: supple, trachea midline. Absent: lymphadenopathy - Respiratory Respiratory exam: Present: CTAB. Absent: accessory muscle use, rales, rhonchi, wheezes - Cardiovascular Cardiovascular exam: Present: RRR, +S1, +S2. Absent: diastolic murmur, gallop, rubs, systolic murmur - GI/Abdominal GI/Abdominal exam: Present: normal bowel sounds, soft, no peritoneal signs. Absent: distended, tenderness - Extremities Exam Extremities exam: Present: warm, radial pulses palpable and symmetrical. Absent : calf tenderness, cyanotic, pedal edema - Neurological Exam Neurological exam: Present: CN II-XII intact, no focal deficits. Absent: facial droop - Skin Skin exam: Present: dry, intact Internal Med - H&P Results - Labs CBC & Chem 7: 11/12/17 03:10 11/12/17 03:10 - ABG Interpretation ABG results: 11/12/17 05:22 ABG pH 7.22 L ABG pCO2 61 H ABG pO2 170 H ABG HCO3 25 ABG Total CO2 27 H ABG O2 Saturation 99 H ABG Base Excess -4 L - Assessment and plan (1) Acute respiratory failure Current Visit: Yes Status: Acute Assessment and plan: Patient was intubated for airway protection and respiratory failure. Continue mechanical ventilation. Continue treatment underlying aspiration pneumonia with Zosyn. We will consult critical care physician. Critical care time 40 minutes including history, physical exam, data review, and medical decision-making. Qualifiers: Respiratory failure complication: hypoxia Qualified Code(s): J96.01 - Acute respiratory failure with hypoxia (2) Aspiration pneumonia Current Visit: Yes Status: Acute Assessment and plan: Management as above Qualifiers: Aspiration pneumonia type: unspecified Laterality: bilateral Lung location: unspecified part of lung Qualified Code(s): J69.0 - Pneumonitis due to inhalation of food and vomit (3) DVT prophylaxis Current Visit: Yes Status: Acute Assessment and plan: Heparin subcutaneously (4) Substance abuse Current Visit: Yes Status: Acute Assessment and plan: Patient has amphetamine and marijuana positive in urine toxic screen. May need a social services analyst consult after patient is stabilized and extubated. - Time Spent With Patient Total time spent is greater than 50% in coordination of care (as documented) at patient's floor/unit and/or counseling patient: 40 minutes Greater than 35 minutes
[2017-11-12] MEDS: FentaNYL (PF) 1,000 MCG in 0.9 % Sodium Chloride 80 ML IVC SCH ×2 (07:47→15:00)
--- NOTE | 2017-11-12 07:48 | Pulmonology Consult Note ---
<JacychuyOleg solis M - Last Filed: 11/12/17 09:07> Date of Encounter: 11/12/17 Medications and Allergies Fluconazole [Diflucan] 200 mg PO DAILY #3 tab 06/21/17 [Rx] Ibuprofen [Motrin] 200 mg PO Q6HR PRN 07/14/17 [History] OxyCODONE Immed Rel [Roxicodone 5 MG] 5 mg PO Q6H PRN 07/14/17 [History] Heparin 5,000 unit SQ Q12HCO vial 07/20/17 [Rx] Nicotine Patch [Nicoderm] 14 mg TD DAILY patch.td24 07/20/17 [Rx] 3 Allergy/AdvReac Type Severity Reaction Status Date / Time diphenhydramine AdvReac See Verified 11/12/17 02:30 [From Haydee] Comments tramadol AdvReac Nausea Verified 11/12/17 02:30 All Systems: The remainder of the systems were reviewed and are negative Physical Examination Vital Signs: Vital Signs, Last 4 Hours Temp Pulse Resp BP Pulse Ox 11/12/17 08:00 86 11/12/17 07:53 85 18 83/57 98 11/12/17 06:24 18 95/60 99 11/12/17 06:15 97.6 F 93 18 98/74 98 11/12/17 05:43 94 20 106/65 99 11/12/17 05:33 98 18 109/67 99 Ventilator Settings Ventilator Settings: Ventilator Settings, Last 8 Hours Ventilator Tidal Volume 500 Setting Ventilator Tidal Volume 500 Setting Ventilator Tidal Volume 500 Setting Ventilator Tidal Volume 500 Setting Ventilator Respiratory Rate 18 Setting Ventilator Respiratory Rate 18 Setting Ventilator Respiratory Rate 18 Setting Ventilator Respiratory Rate 18 Setting Ventilator Respiratory Rate 14 Setting Actual Respiratory Rate 18 Actual Respiratory Rate 21 Actual Respiratory Rate 18 Positive End Expiratory 5 Pressure Positive End Expiratory 5 Pressure Positive End Expiratory 5 Pressure Positive End Expiratory 5 Pressure Peak Inspiratory Airway 20 Pressure Peak Inspiratory Airway 20 Pressure Peak Inspiratory Airway 20 Pressure Results - Laboratory Findings CBC and BMP: 11/12/17 03:10 11/12/17 03:10 ABG ABG pH 7.22 pH Units (7.32-7.45) L 11/12/17 05:22 ABG pCO2 61 mmHg (35-45) H 11/12/17 05:22 ABG pO2 170 mmHg (85-104) H 11/12/17 05:22 ABG O2 Saturation 99 % (95-98) H 11/12/17 05:22 Abnormal lab findings: Abnormal lab results MPV 9.1 fL (9.4-12.4) L 11/12/17 03:10 ABG pH 7.22 pH Units (7.32-7.45) L 11/12/17 05:22 ABG pCO2 61 mmHg (35-45) H 11/12/17 05:22 ABG pO2 170 mmHg (85-104) H 11/12/17 05:22 ABG Total CO2 27 mEq/L (20-26) H 11/12/17 05:22 ABG O2 Saturation 99 % (95-98) H 11/12/17 05:22 ABG Base Excess -4 mEq/L (-2 to 3) L 11/12/17 05:22 Sodium 133 mEq/L (136-145) L 11/12/17 03:10 Potassium 3.3 mEq/L (3.5-5.1) L 11/12/17 03:10 Calculated Osmolality 278 (280-300) L 11/12/17 03:10 AST 85 Units/L (13-39) H 11/12/17 03:10 ALT 79 Units/L (7-52) H 11/12/17 03:10 Creatine Kinase 818 Units/L (30-223) H 11/12/17 03:10 Globulin 3.9 g/dL (2.4-3.5) H 11/12/17 03:10 Albumin/Globulin Ratio 1.0 (1.1-2.2) L 11/12/17 03:10 Urine Clarity Cloudy (Clear) A 11/12/17 03:34 Urine Protein >=300 mg/dL (Neg-Trace) H 11/12/17 03:34 Urine Blood Large (Negative) H 11/12/17 03:34 Ur Leukocyte Esterase Small (Negative) H 11/12/17 03:34 Urine Microscopic RBC 50-100 per hpf (0-3) H 11/12/17 03:34 Urine Microscopic WBC 30-50 per hpf (0-3) H 11/12/17 03:34 Salicylates < 2.5 mg/dL (15.0-30.0) L 11/12/17 03:10 Acetaminophen < 10 mcg/mL (10-20) L 11/12/17 03:10 Ur Amphetamines Screen Positive ng/mL ([id number]) H 11/12/17 02:55 Urine Cocaine Screen Positive ng/mL (Cutoff= 300) H 11/12/17 02:55 - Clinical Findings Intake & Output: Intake & Output 11/11/17 11/12/17 11/12/17 23:59 07:59 15:59 Intake Total 107.5 / 1107.5 Balance 107.5 / 1107.5 Weight 94 kg Consult Discharge Plan - Plan Referrals: Lex Rey MD [Primary Care Provider] - - Attending Attestation I examined this patient and my medical decision-making was reviewed with the Resident Physician. I agree with the documented findings, disposition and treatment plan as described except to the extent set forth below. Patient seen and examined. Labs, radiology, chart personally reviewed. 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 Pulmonary: Acceptable oxygenation and ventilation. Changed vent setting and need follow-up ABG. Patient will be intubated for today mainly due to aggressive behavior and safety of the patient and the staff. Hopefully he will be more calm when illicit drugs out of his system. Cardiovascular: stable GI: Nutrition per dietary and GI prophylaxis per routine Heme: DVT prophylaxis per routine ID: Continue antibiotics and plan to de-escalation Renal; urine out put and renal funtion reviewed Endorcine: blood glucose is monitored Lines: all lines checked and no evidence of infections Skin: skin care to prevent pressure ulcers per nursing routine care. Multiple areas of tracking on his skin <Monisha Gonzalez - Last Filed: 11/12/17 17:52> Date of Encounter: 11/12/17 Time of Encounter: 09:00 Assessment and Plan (1) Acute respiratory failure Current Visit: Yes Status: Acute Acute respiratory acidosis possibly d/t aspiration event ABG: pH 7.22 / pCO2 61 / pO2 170 / HCO3 25 / O2 sat 99% Currently intubated and on mechanical ventilation Plan: Continue mechanical ventilation Follow ABGs Qualifiers: Respiratory failure complication: hypoxia Qualified Code(s): J96.01 - Acute respiratory failure with hypoxia (2) Aspiration pneumonia Current Visit: Yes Status: Acute Coughing with production of thick, purulent sputum while in the ED. Pt was altered and unable to protect his airway, increasing his risk for aspiration event. Following intubation, empiric IV antibiotics were started. CXR negative for acute cardiopulmonary disease, acute confluence of infiltration, or pleural effusion; diffuse airspace disease noted. At this time, pt is afebrile and white count is WNL. Currently saturating 100% on mechanical ventilation. Plan: Continue Zosyn for now (day 1) Sputum culture with gram stain Blood culture results pending Qualifiers: Aspiration pneumonia type: unspecified Laterality: bilateral Lung location: unspecified part of lung Qualified Code(s): J69.0 - Pneumonitis due to inhalation of food and vomit (3) Altered mental status Current Visit: Yes Status: Acute Most likely etiology is polysubstance abuse CT head non-contrast showed no acute intracranial abnormalities Currently unable to assess mental status as he is currently sedated for mechanical ventilation Qualifiers: Altered mental status type: unspecified Qualified Code(s): R41.82 - Altered mental status, unspecified (4) Substance abuse Current Visit: Yes Status: Acute Urine screened positive for amphetamines and cocaine Most likely etiology of his acutely altered mental status (5) DVT prophylaxis Current Visit: Yes Status: Acute Heparin 5000 subcutaneous Q12H History of Present Illness Consult date: 11/12/17 Requesting physician: Tiny Becker Reason for consult: other History of present illness: Mr. Diamond is a 37 year-old male who presented to ED with altered mental status d/t polysubstance abuse including methamphetamine and cocaine. Per ED documentation review, pt was agitated and required chemical restraint with Geodon and Ativan. Despite this, pt was reported to become more uncooperative and coughing up thick, purulent sputum. There was concern the pt was no longer unable to protect his airway and was subsequently intubated. There was some additional concern for aspiration PNA and he was started on Zosyn. He was admitted to ICU for further monitoring and care. Past Med Surg Social Fam HX - Past Medical History Medical history: hepatitis, other Additional medical history: Abcess in pelvic are, Psychiatric history: no psych history - Past Surgical History Surgical History: herniorrhaphy, other Additional surgical history: antonio drain - Social History Smoking Status: Current every day smoker Smokeless Tobacco Status: No Alcohol use: none Drug use: cocaine, opiates, methamphetamine, IV Drug Use - Family History Mother History Unknown: Yes Living Status: Father History Unknown: Yes Living Status: Still Living Hx Family Cardiac Disorders: Yes Hx Family Endocrine Disorder: Yes ROS unobtainable: due to endotracheal tube All Systems: The remainder of the systems were reviewed and are negative Physical Examination Vital Signs: Vital Signs, Last 4 Hours Temp Pulse Resp BP Pulse Ox 11/12/17 06:24 18 95/60 99 11/12/17 06:15 97.6 F 93 18 98/74 98 11/12/17 05:43 94 20 106/65 99 11/12/17 05:33 98 18 109/67 99 General appearance: no acute distress, other Effort: other Cardiovascular: regular rate and rhythm Gastrointestinal: normoactive bowel sounds Extremities: no cyanosis, no edema, no clubbing unable to assess due to mental status (sedated, propfol and fentanyl drip) Ventilator Settings Ventilator Settings: Ventilator Settings, Last 8 Hours Ventilator Tidal Volume 500 Setting Ventilator Tidal Volume 500 Setting Ventilator Tidal Volume 500 Setting Ventilator Respiratory Rate 18 Setting Ventilator Respiratory Rate 18 Setting Ventilator Respiratory Rate 18 Setting Ventilator Respiratory Rate 14 Setting Actual Respiratory Rate 21 Actual Respiratory Rate 18 Positive End Expiratory 5 Pressure Positive End Expiratory 5 Pressure Positive End Expiratory 5 Pressure Peak Inspiratory Airway 20 Pressure Peak Inspiratory Airway 20 Pressure Results - Laboratory Findings CBC and BMP: 11/12/17 03:10 11/12/17 03:10 ABG ABG pH 7.22 pH Units (7.32-7.45) L 11/12/17 05:22 ABG pCO2 61 mmHg (35-45) H 11/12/17 05:22 ABG pO2 170 mmHg (85-104) H 11/12/17 05:22 ABG O2 Saturation 99 % (95-98) H 11/12/17 05:22 Abnormal lab findings: Abnormal lab results MPV 9.1 fL (9.4-12.4) L 11/12/17 03:10 ABG pH 7.22 pH Units (7.32-7.45) L 11/12/17 05:22 ABG pCO2 61 mmHg (35-45) H 11/12/17 05:22 ABG pO2 170 mmHg (85-104) H 11/12/17 05:22 ABG Total CO2 27 mEq/L (20-26) H 11/12/17 05:22 ABG O2 Saturation 99 % (95-98) H 11/12/17 05:22 ABG Base Excess -4 mEq/L (-2 to 3) L 11/12/17 05:22 Sodium 133 mEq/L (136-145) L 11/12/17 03:10 Potassium 3.3 mEq/L (3.5-5.1) L 11/12/17 03:10 Calculated Osmolality 278 (280-300) L 11/12/17 03:10 AST 85 Units/L (13-39) H 11/12/17 03:10 ALT 79 Units/L (7-52) H 11/12/17 03:10 Creatine Kinase 818 Units/L (30-223) H 11/12/17 03:10 Globulin 3.9 g/dL (2.4-3.5) H 11/12/17 03:10 Albumin/Globulin Ratio 1.0 (1.1-2.2) L 11/12/17 03:10 Urine Clarity Cloudy (Clear) A 11/12/17 03:34 Urine Protein >=300 mg/dL (Neg-Trace) H 11/12/17 03:34 Urine Blood Large (Negative) H 11/12/17 03:34 Ur Leukocyte Esterase Small (Negative) H 11/12/17 03:34 Urine Microscopic RBC 50-100 per hpf (0-3) H 11/12/17 03:34 Urine Microscopic WBC 30-50 per hpf (0-3) H 11/12/17 03:34 Salicylates < 2.5 mg/dL (15.0-30.0) L 11/12/17 03:10 Acetaminophen < 10 mcg/mL (10-20) L 11/12/17 03:10 Ur Amphetamines Screen Positive ng/mL ([id number]) H 11/12/17 02:55 Urine Cocaine Screen Positive ng/mL (Cutoff= 300) H 11/12/17 02:55 - Clinical Findings Intake & Output: Intake & Output 11/11/17 11/11/17 11/12/17 15:59 23:59 07:59 Intake Total 107.5 / 1107.5 Balance 107.5 / 1107.5 Weight 94 kg
[2017-11-12] MEDS ORDERED: Lacri-Lube 3.5 GM TUBE BOTH EYES PRN (07:53)
[2017-11-12] MEDS: Lacri-Lube 3.5 GM TUBE BOTH EYES SCH ×4 (09:47→19:30)
[2017-11-12] MEDS: Chlorhexidine Rinse 15 ML MOUTHWASH MM SCH ×2 (09:47→19:30)
[2017-11-12] MEDS: Pantoprazole 40 MG VIAL IVP SCH (09:47)
[2017-11-12] MEDS ORDERED: *HR* Etomidate 20 MG/10 ML AMPUL IVP ONE (12:09)
[2017-11-12] MEDS ORDERED: *HR* Rocuronium Bromide 100 MG/10 ML VIAL IVC ONE (12:09)
[2017-11-12] MEDS: Piperacillin/Tazobactam 3.375 GM in 0.9 % Sodium Chloride Mini Bag 100 ML IVPB SCH ×2 (13:38→19:29)
[2017-11-12 13:56] LABS: ABG Base Excess 1 mEq/L (-2 to 3); ABG HCO3 27 mEq/L (21-27); ABG Oxygen Saturation 99 % (95-98); ABG PCO2 49 mmHg (35-45); ABG PH 7.35 pH Units (7.32-7.45); ABG PO2 145 mmHg (85-104); ABG TCO2 29 mEq/L (20-26); Blood Gas Modality AF; Blood Gas PEEP 5 cm H2O; Blood Gas Respiration Rate 14; Blood Gas VT 500 cc
[2017-11-12] MEDS: *HR* Heparin 5,000 UNIT/ML VIAL SQ SCH (16:53)
[2017-11-13] MEDS: FentaNYL (PF) 1,000 MCG in 0.9 % Sodium Chloride 80 ML IVC SCH ×3 (00:20→18:21)
[2017-11-13 03:34] LABS: Basophils % 0.4 %; Eosinophils # 0.2 K/mcL (0.0-0.6); Eosinophils % 3.5 %; Hemoglobin 11.9 g/dL (12.9-16.9); Immature Granulocytes % 0.9 % (0-4); Lymphocytes # 1.3 K/mcL (0.6-4.6); Lymphocytes % 18.5 %; Mean Corpuscular HGB Conc 32.2 g/dL (31.6-35.5); Mean Corpuscular Hemoglobin 28.3 pg (28.0-33.3); Mean Corpuscular Volume 88.1 fL (83.0-100.0); Mean Platelet Volume 9.4 fL (9.4-12.4); Monocytes # 0.8 K/mcL (0.0-1.3); Monocytes % 11.3 %; Neutrophils # 4.5 K/mcL (1.6-8.9); Platelet Count 312 K/mcL (140-400); Red Cell Distribution Width 13.9 % (11.5-14.5); Segmented Neutrophils % 65.4 %
[2017-11-13 03:43] LABS: INR 1.1; Prothrombin Time 12.1 Seconds (9.4-12.1)
[2017-11-13 03:50] LABS: Chol/HDL Ratio 5.9 (0-4.9); Magnesium 2.3 mg/dL (1.6-2.6)
[2017-11-13 03:51] LABS: Alanine Aminotransferase 65 Units/L (7-52); Albumin/Globulin Ratio 0.9 (1.1-2.2); Alkaline Phosphatase 68 Units/L (34-104); Aspartate Amino Transferase 82 Units/L (13-39); BUN/Creatinine Ratio 10 (6-26); Bilirubin,Total 0.4 mg/dL (0.3-1.0); Blood Urea Nitrogen 10 mg/dL (6-20); Calcium 8.5 mg/dL (8.6-10.3); Carbon Dioxide 24 mEq/L (23-29); Chloride 107 mEq/L (98-107); Globulin 3.3 g/dL (2.4-3.5); Glucose 92 mg/dL (70-105); Osmolality,Calculated 285 (280-300); Potassium 3.4 mEq/L (3.5-5.1); Sodium 138 mEq/L (136-145); Total Protein 6.3 g/dL (6.4-8.9); eGFR For African Americans > 60 (> 60); eGFR For Non-African Americans > 60 (> 60)
[2017-11-13 04:42] LABS: ABG Base Excess 1 mEq/L (-2 to 3); ABG HCO3 27 mEq/L (21-27); ABG Oxygen Saturation 95 % (95-98); ABG PCO2 49 mmHg (35-45); ABG PH 7.35 pH Units (7.32-7.45); ABG PO2 80 mmHg (85-104); ABG TCO2 29 mEq/L (20-26); Blood Gas Modality VC; Blood Gas Respiration Rate 14; Blood Gas VT 500 cc
[2017-11-13] MEDS: Lacri-Lube 3.5 GM TUBE BOTH EYES SCH ×6 (04:47→20:37)
[2017-11-13] MEDS: Ringers Solution, Lactated 1,000 ML IVC SCH ×3 (05:47→20:37)
[2017-11-13] MEDS: Piperacillin/Tazobactam 3.375 GM in 0.9 % Sodium Chloride Mini Bag 100 ML IVPB SCH ×3 (05:48→20:21)
[2017-11-13] MEDS: *HR* Heparin 5,000 UNIT/ML VIAL SQ SCH ×2 (05:48→16:30)
[2017-11-13] MEDS ORDERED: Potassium Chloride Elixir 20 MEQ/15 ML UDC GTUBE ONE (08:01)
--- NOTE | 2017-11-13 08:04 | Pulmonology Progress Note ---
<IrmaAristides W - Last Filed: 11/13/17 15:34> Date of Encounter: 11/13/17 Objective PUL Vital signs: Last Vital Signs Temp 98.0 F 11/13/17 07:49 Pulse 80 11/13/17 08:00 Resp 14 11/13/17 08:17 BP 91/55 11/13/17 08:17 Pulse Ox 97 11/13/17 08:17 Ventilator Settings Ventilator Settings: Ventilator Settings, Last 8 Hours Ventilator Tidal Volume 500 Setting Ventilator Tidal Volume 500 Setting Ventilator Tidal Volume 500 Setting Ventilator Tidal Volume 500 Setting Ventilator Tidal Volume 500 Setting Ventilator Tidal Volume 500 Setting Ventilator Tidal Volume 500 Setting Ventilator Tidal Volume 500 Setting Ventilator Tidal Volume 500 Setting Ventilator Tidal Volume 500 Setting Ventilator Tidal Volume 500 Setting Ventilator Tidal Volume 500 Setting Ventilator Respiratory Rate 14 Setting Ventilator Respiratory Rate 14 Setting Ventilator Respiratory Rate 14 Setting Ventilator Respiratory Rate 14 Setting Ventilator Respiratory Rate 14 Setting Ventilator Respiratory Rate 14 Setting Ventilator Respiratory Rate 14 Setting Ventilator Respiratory Rate 14 Setting Ventilator Respiratory Rate 14 Setting Ventilator Respiratory Rate 14 Setting Ventilator Respiratory Rate 14 Setting Ventilator Respiratory Rate 14 Setting Actual Respiratory Rate 15 Actual Respiratory Rate 14 Actual Respiratory Rate 14 Actual Respiratory Rate 14 Actual Respiratory Rate 14 Actual Respiratory Rate 14 Actual Respiratory Rate 14 Actual Respiratory Rate 17 Actual Respiratory Rate 14 Actual Respiratory Rate 14 Actual Respiratory Rate 14 Positive End Expiratory 5 Pressure Positive End Expiratory 5 Pressure Positive End Expiratory 5 Pressure Positive End Expiratory 5 Pressure Positive End Expiratory 5 Pressure Positive End Expiratory 5 Pressure Positive End Expiratory 5 Pressure Positive End Expiratory 5 Pressure Positive End Expiratory 5 Pressure Positive End Expiratory 5 Pressure Positive End Expiratory 5 Pressure Positive End Expiratory 5 Pressure Peak Inspiratory Airway 22 Pressure Peak Inspiratory Airway 23 Pressure Peak Inspiratory Airway 22 Pressure Peak Inspiratory Airway 18 Pressure Peak Inspiratory Airway 22 Pressure Peak Inspiratory Airway 18 Pressure Peak Inspiratory Airway 18 Pressure Peak Inspiratory Airway 23 Pressure Peak Inspiratory Airway 18 Pressure Peak Inspiratory Airway 20 Pressure Peak Inspiratory Airway 18 Pressure Results - Laboratory Findings CBC and BMP: 11/13/17 03:02 11/13/17 03:02 ABG ABG pH 7.35 pH Units (7.32-7.45) 11/13/17 04:38 ABG pCO2 49 mmHg (35-45) H 11/13/17 04:38 ABG pO2 80 mmHg (85-104) L 11/13/17 04:38 ABG O2 Saturation 95 % (95-98) 11/13/17 04:38 PT/INR, D-dimer PT 12.1 Seconds (9.4-12.1) 11/13/17 03:02 Abnormal lab findings: Abnormal lab results Hgb 11.9 g/dL (12.9-16.9) L 11/13/17 03:02 Hct 37.0 % (37.5-50.1) L 11/13/17 03:02 ABG pCO2 49 mmHg (35-45) H 11/13/17 04:38 ABG pO2 80 mmHg (85-104) L 11/13/17 04:38 ABG Total CO2 29 mEq/L (20-26) H 11/13/17 04:38 Potassium 3.4 mEq/L (3.5-5.1) L 11/13/17 03:02 POC Glucose 141 mg/dL (70-99) H 11/12/17 06:16 Calcium 8.5 mg/dL (8.6-10.3) L 11/13/17 03:02 AST 82 Units/L (13-39) H 11/13/17 03:02 ALT 65 Units/L (7-52) H 11/13/17 03:02 Creatine Kinase 260 Units/L (30-223) H 11/13/17 03:02 Serum Total Protein 6.3 g/dL (6.4-8.9) L 11/13/17 03:02 Albumin 3.0 g/dL (3.5-5.7) L 11/13/17 03:02 Albumin/Globulin Ratio 0.9 (1.1-2.2) L 11/13/17 03:02 HDL Cholesterol 21 mg/dL (40-59) L 11/13/17 03:02 Cholesterol/HDL Ratio 5.9 (0-4.9) H 11/13/17 03:02 Urine Clarity Cloudy (Clear) A 11/12/17 03:34 Urine Protein >=300 mg/dL (Neg-Trace) H 11/12/17 03:34 Urine Blood Large (Negative) H 11/12/17 03:34 Ur Leukocyte Esterase Small (Negative) H 11/12/17 03:34 Urine Microscopic RBC 50-100 per hpf (0-3) H 11/12/17 03:34 Urine Microscopic WBC 30-50 per hpf (0-3) H 11/12/17 03:34 Salicylates < 2.5 mg/dL (15.0-30.0) L 11/12/17 03:10 Acetaminophen < 10 mcg/mL (10-20) L 11/12/17 03:10 Ur Amphetamines Screen Positive ng/mL (Dlyqbb=[id number]) H 11/12/17 02:55 Urine Cocaine Screen Positive ng/mL (Cutoff= 300) H 11/12/17 02:55 - Microbiology Findings Microbiology Findings: Microbiology, Last 48 Hours 11/12/17 15:00 Sputum Culture - Preliminary Sputum - Clinical Findings Intake & Output: Intake & Output 11/12/17 11/13/17 11/13/17 23:59 07:59 15:59 Intake Total 1400 / 1400 1210 / 1210 175 / 175 Output Total 700 / 700 250 / 250 Balance 700 / 700 960 / 960 175 / 175 Weight 101.5 kg Consult Discharge Plan - Plan Referrals: Lex Rey MD [Primary Care Provider] - - Attending Attestation I examined this patient and my medical decision-making was reviewed with the Resident Physician. I agree with the documented findings, disposition and treatment plan as described except to the extent set forth below. We independently had [id number] contact with the patient Patient seen and examined at bedside Labs, radiology, chart personally reviewed. Management was reviewed during multidisciplinary critical care rounds. 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 He is not a candidate for spontaneous awake trial today because of active ethanol withdrawal Pulm: The patient is intubated on mechanical ventilator but more for encephalopathy than respiratory issue. Acceptable gas exchange at a his not a CPAP candidate because of agitation Cards: Blood pressure monitored and stable continue to monitor on telemetry FEN-GI: Start enteral nutrition per dietary recommendations GI prophylaxis given Renal: Urine output monitored we will continue to monitor serum creatinine and electrolytes replace potassium and magnesium today ID: No active issues continue to monitor Heme/Onc: DVT prophylaxis given Endo: Glucose Monitored Integ/MSK: Skin Care per routine ICU Nursing Protocol to prevent ulcers. Lines: All lines examined without evidence of infection : Dispo: ICU for vent management CODE: Full <Monisha Gonzalez - Last Filed: 11/13/17 15:44> Date of Encounter: 11/13/17 Time of Encounter: 08:50 Assessment and Plan (1) Acute respiratory failure Current Visit: Yes Status: Acute Improved Acute respiratory failure with respiratory acidosis, possibly d/t aspiration event Initial ABG: pH 7.22 / pCO2 61 / pO2 170 / HCO3 25 / O2 sat 99% Currently intubated and on mechanical ventilation Ok oxygenation and ventilation Not candidate for CPAP trial due to recent agitation Plan: Continue mechanical ventilation Follow ABGs Qualifiers: Respiratory failure complication: hypoxia Qualified Code(s): J96.01 - Acute respiratory failure with hypoxia (2) Aspiration pneumonia Current Visit: Yes Status: Acute Coughing with production of thick, purulent sputum in the ED Intubated in ED because pt altered and unable to protect airway, increasing his aspiration risk CXR negative for acute cardiopulmonary disease, acute confluence of infiltration , or pleural effusion; diffuse airspace disease noted. Afebrile and white count is WNL /10 Blood culture NGTD 11/12 Sputum gram stain and culture--normal upper respiratory tract maria a, no pathogens Remains on mechanical ventilation Plan: Continue Zosyn for now (day 2) Final results of sputum and blood culture pending Qualifiers: Aspiration pneumonia type: unspecified Laterality: bilateral Lung location: unspecified part of lung Qualified Code(s): J69.0 - Pneumonitis due to inhalation of food and vomit (3) Altered mental status Current Visit: Yes Status: Acute Most likely etiology is polysubstance abuse, alcohol withdrawal may also be a factor Infectious process less likely etiology, afebrile and WBCs wnl since presentation CT head non-contrast showed no acute intracranial abnormalities Currently unable to assess mental status--sedated and on mechanical ventilation May still be altered given he was combative and tried to self-extubate last night--required a versed gtt Qualifiers: Altered mental status type: unspecified Qualified Code(s): R41.82 - Altered mental status, unspecified (4) Substance abuse Current Visit: Yes Status: Acute Most likely etiology of his acutely altered mental status Urine screened positive for amphetamines and cocaine Per pt's family, h/o EtOH abuse (on average 1 case beer/24 cans per day) Pt reportedly had stopped drinking for 2 days and used meth and cocaine to help his withdrawal symptoms Plan IV thiamine, folate, multivitamin replacement with banana bag (5) Elevated creatine kinase Current Visit: Yes Status: Acute Improved CK down from 818 to 260 today Possibly related to muscle damage d/t cocaine, methamphetamine, EtOH use (6) Elevated liver enzymes Current Visit: Yes Status: Acute Slight improvement May be d/t amphetamine use or related to h/o hepatitis AST and ALT today (82 and 65) roughly equivalent to yesterday's H/o hepatitis, chronicity unknown (7) DVT prophylaxis Current Visit: Yes Status: Acute Heparin 5,000 units subcutaneous Q12H Subjective Interval history: Seen and examined this morning at bedside. Pt remains sedated and on mechanical ventilation. Pt overcame his sedation last night, was combative and reaching for his ETT--versed drip started. Objective PUL Vital signs: Last Vital Signs Temp 98.0 F 11/13/17 07:49 Pulse 80 11/13/17 08:00 Resp 14 11/13/17 08:00 BP 87/60 11/13/17 08:00 Pulse Ox 97 11/13/17 08:00 General appearance: other (sedated) Neck: supple Effort: other (mechanical ventilation) Auscultation: bilateral: clear Cardiovascular: regular rate and rhythm Gastrointestinal: normoactive bowel sounds, soft, non-tender, non-distended Extremities: no cyanosis, no edema, no clubbing, pink and warm unable to assess due to mental status (sedated) Ventilator Settings Ventilator Settings: Ventilator Settings, Last 8 Hours Ventilator Tidal Volume 500 Setting Ventilator Tidal Volume 500 Setting Ventilator Tidal Volume 500 Setting Ventilator Tidal Volume 500 Setting Ventilator Tidal Volume 500 Setting Ventilator Tidal Volume 500 Setting Ventilator Tidal Volume 500 Setting Ventilator Tidal Volume 500 Setting Ventilator Tidal Volume 500 Setting Ventilator Tidal Volume 500 Setting Ventilator Tidal Volume 500 Setting Ventilator Tidal Volume 500 Setting Ventilator Respiratory Rate 14 Setting Ventilator Respiratory Rate 14 Setting Ventilator Respiratory Rate 14 Setting Ventilator Respiratory Rate 14 Setting Ventilator Respiratory Rate 14 Setting Ventilator Respiratory Rate 14 Setting Ventilator Respiratory Rate 14 Setting Ventilator Respiratory Rate 14 Setting Ventilator Respiratory Rate 14 Setting Ventilator Respiratory Rate 14 Setting Ventilator Respiratory Rate 14 Setting Ventilator Respiratory Rate 14 Setting Actual Respiratory Rate 14 Actual Respiratory Rate 14 Actual Respiratory Rate 14 Actual Respiratory Rate 14 Actual Respiratory Rate 14 Actual Respiratory Rate 14 Actual Respiratory Rate 17 Actual Respiratory Rate 14 Actual Respiratory Rate 14 Actual Respiratory Rate 14 Actual Respiratory Rate 14 Positive End Expiratory 5 Pressure Positive End Expiratory 5 Pressure Positive End Expiratory 5 Pressure Positive End Expiratory 5 Pressure Positive End Expiratory 5 Pressure Positive End Expiratory 5 Pressure Positive End Expiratory 5 Pressure Positive End Expiratory 5 Pressure Positive End Expiratory 5 Pressure Positive End Expiratory 5 Pressure Positive End Expiratory 5 Pressure Positive End Expiratory 5 Pressure Peak Inspiratory Airway 23 Pressure Peak Inspiratory Airway 22 Pressure Peak Inspiratory Airway 18 Pressure Peak Inspiratory Airway 22 Pressure Peak Inspiratory Airway 18 Pressure Peak Inspiratory Airway 18 Pressure Peak Inspiratory Airway 23 Pressure Peak Inspiratory Airway 18 Pressure Peak Inspiratory Airway 20 Pressure Peak Inspiratory Airway 18 Pressure Peak Inspiratory Airway 21 Pressure Results - Laboratory Findings CBC and BMP: 11/13/17 03:02 11/13/17 03:02 ABG ABG pH 7.35 pH Units (7.32-7.45) 11/13/17 04:38 ABG pCO2 49 mmHg (35-45) H 11/13/17 04:38 ABG pO2 80 mmHg (85-104) L 11/13/17 04:38 ABG O2 Saturation 95 % (95-98) 11/13/17 04:38 PT/INR, D-dimer PT 12.1 Seconds (9.4-12.1) 11/13/17 03:02 Abnormal lab findings: Abnormal lab results Hgb 11.9 g/dL (12.9-16.9) L 11/13/17 03:02 Hct 37.0 % (37.5-50.1) L 11/13/17 03:02 ABG pCO2 49 mmHg (35-45) H 11/13/17 04:38 ABG pO2 80 mmHg (85-104) L 11/13/17 04:38 ABG Total CO2 29 mEq/L (20-26) H 11/13/17 04:38 Potassium 3.4 mEq/L (3.5-5.1) L 11/13/17 03:02 POC Glucose 141 mg/dL (70-99) H 11/12/17 06:16 Calcium 8.5 mg/dL (8.6-10.3) L 11/13/17 03:02 AST 82 Units/L (13-39) H 11/13/17 03:02 ALT 65 Units/L (7-52) H 11/13/17 03:02 Creatine Kinase 818 Units/L (30-223) H 11/12/17 03:10 Serum Total Protein 6.3 g/dL (6.4-8.9) L 11/13/17 03:02 Albumin 3.0 g/dL (3.5-5.7) L 11/13/17 03:02 Albumin/Globulin Ratio 0.9 (1.1-2.2) L 11/13/17 03:02 HDL Cholesterol 21 mg/dL (40-59) L 11/13/17 03:02 Cholesterol/HDL Ratio 5.9 (0-4.9) H 11/13/17 03:02 Urine Clarity Cloudy (Clear) A 11/12/17 03:34 Urine Protein >=300 mg/dL (Neg-Trace) H 11/12/17 03:34 Urine Blood Large (Negative) H 11/12/17 03:34 Ur Leukocyte Esterase Small (Negative) H 11/12/17 03:34 Urine Microscopic RBC 50-100 per hpf (0-3) H 11/12/17 03:34 Urine Microscopic WBC 30-50 per hpf (0-3) H 11/12/17 03:34 Salicylates < 2.5 mg/dL (15.0-30.0) L 11/12/17 03:10 Acetaminophen < 10 mcg/mL (10-20) L 11/12/17 03:10 Ur Amphetamines Screen Positive ng/mL (Reeeji=[id number]) H 11/12/17 02:55 Urine Cocaine Screen Positive ng/mL (Cutoff= 300) H 11/12/17 02:55 - Microbiology Findings Microbiology Findings: Microbiology, Last 48 Hours 11/12/17 15:00 Sputum Culture - Preliminary Sputum - Clinical Findings Intake & Output: Intake & Output 11/12/17 11/13/17 11/13/17 23:59 07:59 15:59 Intake Total 1400 / 1400 1210 / 1210 Output Total 700 / 700 250 / 250 Balance 700 / 700 960 / 960 Weight 101.5 kg - VTE Documentation of Mechanical Device: Intermittent pneumatic compression device
[2017-11-13] MEDS: Pantoprazole 40 MG VIAL IVP SCH (08:30)
[2017-11-13] MEDS: Chlorhexidine Rinse 15 ML MOUTHWASH MM SCH ×2 (08:30→20:36)
[2017-11-13 08:49] LABS: Creatine Kinase 260 Units/L (30-223)
--- NOTE | 2017-11-13 09:51 | Electrocardiograph Report ---
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
[2017-11-13] MEDS ORDERED: Potassium Chloride 40 MEQ/200 ML BAG IVPB PRN (15:50)
[2017-11-13] MEDS ORDERED: Potassium Phosphate 44 MEQ in 0.9 % Sodium Chloride 250 ML IVPB PRN (15:50)
[2017-11-13] MEDS: Thiamine (B-1) 100 MG, Folic Acid 1 MG, MVI, adult with vitamin K 10 ML in 0.9 % Sodi... IVPB SCH (16:30)
[2017-11-14] MEDS: Lacri-Lube 3.5 GM TUBE BOTH EYES SCH ×7 (00:12→23:17)
[2017-11-14 03:28] LABS: Basophils % 0.5 %; Eosinophils # 0.2 K/mcL (0.0-0.6); Eosinophils % 3.8 %; Hematocrit 35.3 % (37.5-50.1); Immature Granulocytes % 0.5 % (0-4); Lymphocytes # 1.9 K/mcL (0.6-4.6); Mean Corpuscular HGB Conc 31.2 g/dL (31.6-35.5); Mean Corpuscular Hemoglobin 28.4 pg (28.0-33.3); Mean Platelet Volume 9.1 fL (9.4-12.4); Monocytes # 0.9 K/mcL (0.0-1.3); Monocytes % 14.7 %; Neutrophils # 3.3 K/mcL (1.6-8.9); Platelet Count 291 K/mcL (140-400); Red Blood Count 3.88 M/mcL (4.19-5.50); Red Cell Distribution Width 14.2 % (11.5-14.5); Segmented Neutrophils % 51.5 %
[2017-11-14 03:44] LABS: BUN/Creatinine Ratio 9 (6-26); Blood Urea Nitrogen 9 mg/dL (6-20); Calcium 8.2 mg/dL (8.6-10.3); Carbon Dioxide 26 mEq/L (23-29); Chloride 108 mEq/L (98-107); Glucose 107 mg/dL (70-105); Osmolality,Calculated 285 (280-300); Phosphorous 3.8 mg/dL (2.7-4.5); Potassium 3.7 mEq/L (3.5-5.1); Sodium 138 mEq/L (136-145); eGFR For African Americans > 60 (> 60); eGFR For Non-African Americans > 60 (> 60)
[2017-11-14] MEDS: Ringers Solution, Lactated 1,000 ML IVC SCH (05:01)
[2017-11-14] MEDS: Piperacillin/Tazobactam 3.375 GM in 0.9 % Sodium Chloride Mini Bag 100 ML IVPB SCH ×3 (05:03→20:53)
[2017-11-14] MEDS: *HR* Heparin 5,000 UNIT/ML VIAL SQ SCH ×2 (05:04→17:33)
[2017-11-14] MEDS: FentaNYL (PF) 1,000 MCG in 0.9 % Sodium Chloride 80 ML IVC SCH ×3 (05:11→23:49)
--- NOTE | 2017-11-14 07:18 | Pulmonology Progress Note ---
<IrmaMarlyns W - Last Filed: 11/14/17 10:29> Date of Encounter: 11/14/17 Objective PUL Vital signs: Last Vital Signs Temp 98.7 F 11/14/17 04:23 Pulse 75 11/14/17 07:10 Resp 14 11/14/17 07:21 BP 92/55 11/14/17 07:21 Pulse Ox 97 11/14/17 07:21 Ventilator Settings Ventilator Settings: Ventilator Settings, Last 8 Hours Ventilator Tidal Volume 500 Setting Ventilator Tidal Volume 500 Setting Ventilator Tidal Volume 500 Setting Ventilator Tidal Volume 500 Setting Ventilator Tidal Volume 500 Setting Ventilator Tidal Volume 500 Setting Ventilator Tidal Volume 500 Setting Ventilator Tidal Volume 500 Setting Ventilator Tidal Volume 500 Setting Ventilator Tidal Volume 500 Setting Ventilator Respiratory Rate 14 Setting Ventilator Respiratory Rate 14 Setting Ventilator Respiratory Rate 14 Setting Ventilator Respiratory Rate 14 Setting Ventilator Respiratory Rate 14 Setting Ventilator Respiratory Rate 14 Setting Ventilator Respiratory Rate 14 Setting Ventilator Respiratory Rate 14 Setting Ventilator Respiratory Rate 14 Setting Ventilator Respiratory Rate 14 Setting Actual Respiratory Rate 14 Actual Respiratory Rate 14 Actual Respiratory Rate 14 Actual Respiratory Rate 14 Actual Respiratory Rate 14 Actual Respiratory Rate 14 Actual Respiratory Rate 14 Actual Respiratory Rate 14 Actual Respiratory Rate 14 Actual Respiratory Rate 14 Positive End Expiratory 5 Pressure Positive End Expiratory 5 Pressure Positive End Expiratory 5 Pressure Positive End Expiratory 5 Pressure Positive End Expiratory 5 Pressure Positive End Expiratory 5 Pressure Positive End Expiratory 5 Pressure Positive End Expiratory 5 Pressure Positive End Expiratory 5 Pressure Positive End Expiratory 5 Pressure Peak Inspiratory Airway 20 Pressure Peak Inspiratory Airway 20 Pressure Peak Inspiratory Airway 20 Pressure Peak Inspiratory Airway 21 Pressure Peak Inspiratory Airway 20 Pressure Peak Inspiratory Airway 22 Pressure Peak Inspiratory Airway 21 Pressure Peak Inspiratory Airway 22 Pressure Peak Inspiratory Airway 20 Pressure Peak Inspiratory Airway 20 Pressure Results - Laboratory Findings CBC and BMP: 11/14/17 03:08 11/14/17 03:08 ABG ABG pH 7.35 pH Units (7.32-7.45) 11/13/17 04:38 ABG pCO2 49 mmHg (35-45) H 11/13/17 04:38 ABG pO2 80 mmHg (85-104) L 11/13/17 04:38 ABG O2 Saturation 95 % (95-98) 11/13/17 04:38 PT/INR, D-dimer PT 12.1 Seconds (9.4-12.1) 11/13/17 03:02 Abnormal lab findings: Abnormal lab results RBC 3.88 M/mcL (4.19-5.50) L 11/14/17 03:08 Hgb 11.0 g/dL (12.9-16.9) L 11/14/17 03:08 Hct 35.3 % (37.5-50.1) L 11/14/17 03:08 MCHC 31.2 g/dL (31.6-35.5) L 11/14/17 03:08 MPV 9.1 fL (9.4-12.4) L 11/14/17 03:08 ABG pCO2 49 mmHg (35-45) H 11/13/17 04:38 ABG pO2 80 mmHg (85-104) L 11/13/17 04:38 ABG Total CO2 29 mEq/L (20-26) H 11/13/17 04:38 Chloride 108 mEq/L (98-107) H 11/14/17 03:08 Glucose 107 mg/dL (70-105) H 11/14/17 03:08 POC Glucose 141 mg/dL (70-99) H 11/12/17 06:16 Calcium 8.2 mg/dL (8.6-10.3) L 11/14/17 03:08 AST 82 Units/L (13-39) H 11/13/17 03:02 ALT 65 Units/L (7-52) H 11/13/17 03:02 Creatine Kinase 260 Units/L (30-223) H 11/13/17 03:02 Serum Total Protein 6.3 g/dL (6.4-8.9) L 11/13/17 03:02 Albumin 3.0 g/dL (3.5-5.7) L 11/13/17 03:02 Albumin/Globulin Ratio 0.9 (1.1-2.2) L 11/13/17 03:02 HDL Cholesterol 21 mg/dL (40-59) L 11/13/17 03:02 Cholesterol/HDL Ratio 5.9 (0-4.9) H 11/13/17 03:02 Urine Clarity Cloudy (Clear) A 11/12/17 03:34 Urine Protein >=300 mg/dL (Neg-Trace) H 11/12/17 03:34 Urine Blood Large (Negative) H 11/12/17 03:34 Ur Leukocyte Esterase Small (Negative) H 11/12/17 03:34 Urine Microscopic RBC 50-100 per hpf (0-3) H 11/12/17 03:34 Urine Microscopic WBC 30-50 per hpf (0-3) H 11/12/17 03:34 Salicylates < 2.5 mg/dL (15.0-30.0) L 11/12/17 03:10 Acetaminophen < 10 mcg/mL (10-20) L 11/12/17 03:10 Ur Amphetamines Screen Positive ng/mL (Xxahlo=5707) H 11/12/17 02:55 Urine Cocaine Screen Positive ng/mL (Cutoff= 300) H 11/12/17 02:55 - Microbiology Findings Microbiology Findings: Microbiology, Last 48 Hours 11/12/17 15:00 Sputum Culture - Preliminary Sputum 11/12/17 05:36 Blood Culture - Preliminary Peripheral Venipuncture No growth. - Clinical Findings Intake & Output: Intake & Output 11/13/17 11/14/17 11/14/17 23:59 07:59 15:59 Intake Total 2069 / 2069 2593.2 / 2593.2 Output Total 375 / 375 250 / 250 Balance 1694 / 1694 2343.2 / 2343.2 Weight 100.8 kg Consult Discharge Plan - Plan Referrals: Lex Rey MD [Primary Care Provider] - - Attending Attestation I examined this patient and my medical decision-making was reviewed with the Resident Physician. I agree with the documented findings, disposition and treatment plan as described except to the extent set forth below. We independently had [id number] contact with the patient Patient seen and examined at bedside Labs, radiology, chart personally reviewed. Management was reviewed during multidisciplinary critical care rounds. 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 still very agitated with SAT requiring resedation. Suspected EtOH withdrawal Pulm: On vent because of sedation need accetable gas exchange. cont VAP bundle. no SBT today because of agitation Cards:BP stable FEN-GI:cont enteral nutrition cont GI prophylaxis Renal: UOP monitored sCr stable. cont to trend electrolytes daily ID: Cont Abx for presumed aspiration Heme/Onc: DVT prophylaxis given Endo: Glucose Monitored Integ/MSK: Skin Care per routine ICU Nursing Protocol to prevent ulcers. Lines: All lines examined without evidence of infection : Dispo: Remain in ICU CODE: Full Code. <Monisha Gonzalez - Last Filed: 11/14/17 22:34> Date of Encounter: 11/14/17 Time of Encounter: 07:18 Assessment and Plan (1) Alcohol withdrawal Current Visit: Yes Status: Acute H/o EtOH abuse Ethanol level < 10 on urine tox screen; last drink 3 days ago Remains intubated with versed gtt Plan Awake trial tomorrow morning Continue intubation with sedation, versed gtt until out of the window for withdrawal Continue versed gtt Qualifiers: Complication of substance-induced condition: with unspecified complication Qualified Code(s): F10.239 - Alcohol dependence with withdrawal, unspecified (2) Acute respiratory failure Current Visit: Yes Status: Acute Improved Acute respiratory failure with respiratory acidosis, possibly d/t aspiration event Initial ABG: pH 7.22 / pCO2 61 / pO2 170 / HCO3 25 / O2 sat 99% Acceptable oxygenation and ventilation Remains intubated and on mechanical ventilation primarily for his encephalopathy Agitation with today's awake trial Plan: Will decrease sedation tomorrow for another awake trial Continue mechanical ventilation for now Qualifiers: Respiratory failure complication: hypoxia Qualified Code(s): J96.01 - Acute respiratory failure with hypoxia (3) Aspiration pneumonia Current Visit: Yes Status: Acute Coughing with production of thick, purulent sputum in the ED Intubated in ED because pt altered and unable to protect airway, increasing his aspiration risk CXR negative for acute cardiopulmonary disease, acute confluence of infiltration , or pleural effusion; diffuse airspace disease noted. Afebrile, white count wnl 6/10 Blood culture NGTD 6/10 Sputum gram stain and culture--normal upper respiratory tract maria a, no pathogens Remains on mechanical ventilation Zosyn day 3 Plan Continue zosyn to complete a 5 day course Qualifiers: Aspiration pneumonia type: unspecified Laterality: bilateral Lung location: unspecified part of lung Qualified Code(s): J69.0 - Pneumonitis due to inhalation of food and vomit (4) Altered mental status Current Visit: Yes Status: Acute Most likely etiology is polysubstance abuse and alcohol withdrawal Infectious process less likely etiology, afebrile and WBCs wnl since presentation CT head non-contrast showed no acute intracranial abnormalities Currently unable to assess mental status--sedated and on mechanical ventilation Qualifiers: Altered mental status type: unspecified Qualified Code(s): R41.82 - Altered mental status, unspecified (5) Substance abuse Current Visit: Yes Status: Acute Most likely etiology of his acutely altered mental status Urine screened positive for amphetamines and cocaine Per pt's family, h/o EtOH abuse (on average 1 case beer/24 cans per day) Pt reportedly had stopped drinking for 2 days and used meth and cocaine to help his withdrawal symptoms Plan 2nd banana bag (6) Elevated creatine kinase Current Visit: Yes Status: Acute Improved Most likely related to muscle damage d/t cocaine, methamphetamine, EtOH use (7) Elevated liver enzymes Current Visit: Yes Status: Acute Most likely related to h/o hepatitis C Non-jaundiced on exam, platelet count wnl, PT/INR wnl Hep C chronicity unknown (8) DVT prophylaxis Current Visit: Yes Status: Acute Heparin 5,000 units subcutaneous Q12H Subjective Interval history: Seen and examined this morning at bedside. Pt remains sedated and on mechanical ventilation. No events or sedation issues reported overnight. Objective PUL Vital signs: Last Vital Signs Temp 98.7 F 11/14/17 04:23 Pulse 74 11/14/17 06:00 Resp 14 11/14/17 06:00 BP 91/55 11/14/17 06:00 Pulse Ox 98 11/14/17 06:00 General appearance: other (sedated) Eyes: other (PERRL, pupils equal, sluggish) ENT: oropharynx moist Effort: normal, other (mechanical ventilation) Auscultation: bilateral: clear Cardiovascular: regular rate and rhythm Gastrointestinal: normoactive bowel sounds, soft, non-distended Integumentary: normal Extremities: no cyanosis, no edema, no clubbing unable to assess due to mental status (sedated) Ventilator Settings Ventilator Settings: Ventilator Settings, Last 8 Hours Ventilator Tidal Volume 500 Setting Ventilator Tidal Volume 500 Setting Ventilator Tidal Volume 500 Setting Ventilator Tidal Volume 500 Setting Ventilator Tidal Volume 500 Setting Ventilator Tidal Volume 500 Setting Ventilator Tidal Volume 500 Setting Ventilator Tidal Volume 500 Setting Ventilator Tidal Volume 500 Setting Ventilator Respiratory Rate 14 Setting Ventilator Respiratory Rate 14 Setting Ventilator Respiratory Rate 14 Setting Ventilator Respiratory Rate 14 Setting Ventilator Respiratory Rate 14 Setting Ventilator Respiratory Rate 14 Setting Ventilator Respiratory Rate 14 Setting Ventilator Respiratory Rate 14 Setting Ventilator Respiratory Rate 14 Setting Actual Respiratory Rate 14 Actual Respiratory Rate 14 Actual Respiratory Rate 14 Actual Respiratory Rate 14 Actual Respiratory Rate 14 Actual Respiratory Rate 14 Actual Respiratory Rate 14 Actual Respiratory Rate 14 Actual Respiratory Rate 14 Positive End Expiratory 5 Pressure Positive End Expiratory 5 Pressure Positive End Expiratory 5 Pressure Positive End Expiratory 5 Pressure Positive End Expiratory 5 Pressure Positive End Expiratory 5 Pressure Positive End Expiratory 5 Pressure Positive End Expiratory 5 Pressure Positive End Expiratory 5 Pressure Peak Inspiratory Airway 20 Pressure Peak Inspiratory Airway 21 Pressure Peak Inspiratory Airway 20 Pressure Peak Inspiratory Airway 22 Pressure Peak Inspiratory Airway 21 Pressure Peak Inspiratory Airway 22 Pressure Peak Inspiratory Airway 20 Pressure Peak Inspiratory Airway 20 Pressure Peak Inspiratory Airway 20 Pressure Results - Laboratory Findings CBC and BMP: 11/14/17 03:08 11/14/17 03:08 ABG ABG pH 7.35 pH Units (7.32-7.45) 11/13/17 04:38 ABG pCO2 49 mmHg (35-45) H 11/13/17 04:38 ABG pO2 80 mmHg (85-104) L 11/13/17 04:38 ABG O2 Saturation 95 % (95-98) 11/13/17 04:38 PT/INR, D-dimer PT 12.1 Seconds (9.4-12.1) 11/13/17 03:02 Abnormal lab findings: Abnormal lab results RBC 3.88 M/mcL (4.19-5.50) L 11/14/17 03:08 Hgb 11.0 g/dL (12.9-16.9) L 11/14/17 03:08 Hct 35.3 % (37.5-50.1) L 11/14/17 03:08 MCHC 31.2 g/dL (31.6-35.5) L 11/14/17 03:08 MPV 9.1 fL (9.4-12.4) L 11/14/17 03:08 ABG pCO2 49 mmHg (35-45) H 11/13/17 04:38 ABG pO2 80 mmHg (85-104) L 11/13/17 04:38 ABG Total CO2 29 mEq/L (20-26) H 11/13/17 04:38 Chloride 108 mEq/L (98-107) H 11/14/17 03:08 Glucose 107 mg/dL (70-105) H 11/14/17 03:08 POC Glucose 141 mg/dL (70-99) H 11/12/17 06:16 Calcium 8.2 mg/dL (8.6-10.3) L 11/14/17 03:08 AST 82 Units/L (13-39) H 11/13/17 03:02 ALT 65 Units/L (7-52) H 11/13/17 03:02 Creatine Kinase 260 Units/L (30-223) H 11/13/17 03:02 Serum Total Protein 6.3 g/dL (6.4-8.9) L 11/13/17 03:02 Albumin 3.0 g/dL (3.5-5.7) L 11/13/17 03:02 Albumin/Globulin Ratio 0.9 (1.1-2.2) L 11/13/17 03:02 HDL Cholesterol 21 mg/dL (40-59) L 11/13/17 03:02 Cholesterol/HDL Ratio 5.9 (0-4.9) H 11/13/17 03:02 Urine Clarity Cloudy (Clear) A 11/12/17 03:34 Urine Protein >=300 mg/dL (Neg-Trace) H 11/12/17 03:34 Urine Blood Large (Negative) H 11/12/17 03:34 Ur Leukocyte Esterase Small (Negative) H 11/12/17 03:34 Urine Microscopic RBC 50-100 per hpf (0-3) H 11/12/17 03:34 Urine Microscopic WBC 30-50 per hpf (0-3) H 11/12/17 03:34 Salicylates < 2.5 mg/dL (15.0-30.0) L 11/12/17 03:10 Acetaminophen < 10 mcg/mL (10-20) L 11/12/17 03:10 Ur Amphetamines Screen Positive ng/mL (Upukya=1203) H 11/12/17 02:55 Urine Cocaine Screen Positive ng/mL (Cutoff= 300) H 11/12/17 02:55 - Microbiology Findings Microbiology Findings: Microbiology, Last 48 Hours 11/12/17 15:00 Sputum Culture - Preliminary Sputum 11/12/17 05:36 Blood Culture - Preliminary Peripheral Venipuncture No growth. - Clinical Findings Intake & Output: Intake & Output 11/13/17 11/13/17 11/14/17 15:59 23:59 07:59 Intake Total 575 / 575 2069 / 2069 2593.2 / 2593.2 Output Total 75 / 75 375 / 375 250 / 250 Balance 500 / 500 1694 / 1694 2343.2 / 2343.2 Weight 100.8 kg - VTE Documentation of Mechanical Device: Intermittent pneumatic compression device
[2017-11-14] MEDS: Pantoprazole 40 MG VIAL IVP SCH (08:46)
[2017-11-14] MEDS: Chlorhexidine Rinse 15 ML MOUTHWASH MM SCH ×2 (08:46→20:46)
[2017-11-14 09:17] LABS: ABG Base Excess 2 mEq/L (-2 to 3); ABG HCO3 29 mEq/L (21-27); ABG Oxygen Saturation 88 % (95-98); ABG PCO2 52 mmHg (35-45); ABG PH 7.34 pH Units (7.32-7.45); ABG PO2 60 mmHg (85-104); ABG TCO2 30 mEq/L (20-26); Blood Gas Modality ASSIST CONTROL; Blood Gas PEEP 5 cm H2O; Blood Gas Respiration Rate 14; Blood Gas VT 500 cc
[2017-11-14] MEDS: Thiamine (B-1) 100 MG, Folic Acid 1 MG, MVI, adult with vitamin K 10 ML in 0.9 % Sodi... IVPB SCH (17:33)
[2017-11-15] MEDS: Lacri-Lube 3.5 GM TUBE BOTH EYES SCH ×5 (03:02→21:07)
[2017-11-15] MEDS: Piperacillin/Tazobactam 3.375 GM in 0.9 % Sodium Chloride Mini Bag 100 ML IVPB SCH ×3 (04:00→21:07)
[2017-11-15 04:13] LABS: Basophils # 0.1 K/mcL (0.0-0.2); Basophils % 0.8 %; Eosinophils # 0.2 K/mcL (0.0-0.6); Eosinophils % 3.5 %; Hematocrit 34.4 % (37.5-50.1); Hemoglobin 10.7 g/dL (12.9-16.9); Immature Granulocytes % 0.7 % (0-4); Lymphocytes # 1.5 K/mcL (0.6-4.6); Lymphocytes % 25.1 %; Mean Corpuscular HGB Conc 31.1 g/dL (31.6-35.5); Mean Corpuscular Hemoglobin 28.2 pg (28.0-33.3); Mean Corpuscular Volume 90.5 fL (83.0-100.0); Mean Platelet Volume 9.2 fL (9.4-12.4); Monocytes # 0.8 K/mcL (0.0-1.3); Monocytes % 13.9 %; Neutrophils # 3.4 K/mcL (1.6-8.9); Platelet Count 284 K/mcL (140-400); Red Cell Distribution Width 14.3 % (11.5-14.5)
[2017-11-15 04:28] LABS: BUN/Creatinine Ratio 8 (6-26); Blood Urea Nitrogen 7 mg/dL (6-20); Calcium 8.2 mg/dL (8.6-10.3); Carbon Dioxide 28 mEq/L (23-29); Chloride 108 mEq/L (98-107); Glucose 98 mg/dL (70-105); Osmolality,Calculated 288 (280-300); Potassium 3.9 mEq/L (3.5-5.1); Sodium 140 mEq/L (136-145); eGFR For African Americans > 60 (> 60); eGFR For Non-African Americans > 60 (> 60)
[2017-11-15] MEDS: *HR* Heparin 5,000 UNIT/ML VIAL SQ SCH ×2 (05:01→17:47)
[2017-11-15 05:03] LABS: ABG Base Excess 5 mEq/L (-2 to 3); ABG HCO3 31 mEq/L (21-27); ABG Oxygen Saturation 96 % (95-98); ABG PCO2 50 mmHg (35-45); ABG PO2 86 mmHg (85-104); ABG TCO2 32 mEq/L (20-26); Blood Gas Modality VC; Blood Gas PEEP 5 cm H2O; Blood Gas Respiration Rate 14; Blood Gas VT 500 cc
[2017-11-15] MEDS ORDERED: Dexmedetomidine HCl 400 MCG/100 ML MLS IVC ONE (07:55)
--- NOTE | 2017-11-15 08:06 | Pulmonology Progress Note ---
Date of Encounter: 11/15/17 Time of Encounter: 08:06 Assessment and Plan (1) Encephalopathy Current Visit: Yes Status: Acute Patient seen and examined at bedside Labs, radiology, chart personally reviewed. Management was reviewed during multidisciplinary critical care rounds. 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 He remained significantly agitated when sedation is held. Plan for spontaneous awake trial today we will add Precedex to his regimen with the effort to decrease/stop the doses of Versed and propofol. Pulm: Respiratory failure on vent complicated by suspected aspiration pneumonia acceptable gas exchange today minimal vent settings is not a candidate for spontaneous breathing trial because of neuro status. Continue VAP Bundle to prevent pneumonia Cards: Blood pressure monitored and stable patient is not tachycardic continue to monitor on telemetry FEN-GI: Continue enteral nutrition per nutrition recommendations. Continue bowel regimen Renal: Urine output monitored and stable electrolytes will be monitored daily replaced per protocol continue to measure serum creatinine daily ID: Plan on treatment for 5 days for aspiration pneumonia Heme/Onc: DVT prophylaxis has been given Endo: Glucose Monitored and is in acceptable range Integ/MSK: Skin Care per routine ICU Nursing Protocol to prevent ulcers. Lines: All lines examined without evidence of infection : Dispo: He will remain in ICU for vent management CODE: Full (2) Acute respiratory failure Current Visit: Yes Status: Acute Qualifiers: Respiratory failure complication: hypoxia Qualified Code(s): J96.01 - Acute respiratory failure with hypoxia (3) Aspiration pneumonia Current Visit: Yes Status: Acute Qualifiers: Aspiration pneumonia type: unspecified Laterality: bilateral Lung location: unspecified part of lung Qualified Code(s): J69.0 - Pneumonitis due to inhalation of food and vomit (4) Alcohol withdrawal Current Visit: Yes Status: Acute Qualifiers: Complication of substance-induced condition: with unspecified complication Qualified Code(s): F10.239 - Alcohol dependence with withdrawal, unspecified Subjective Principal diagnosis: Encephalopathy Interval history: No acute events overnight patient remains deeply sedated. He is hemodynamically stable. Objective PUL Vital signs: Last Vital Signs Temp 98.1 F 11/15/17 07:45 Pulse 64 11/15/17 06:00 Resp 14 11/15/17 08:02 BP 87/48 11/15/17 08:02 Pulse Ox 96 11/15/17 08:02 General appearance: no acute distress, other (The patient is deeply sedated on the vent) Eyes: nonicteric ENT: other (Endotracheal tube in satisfactory position) Effort: normal Auscultation: bilateral: clear Cardiovascular: regular rate and rhythm Gastrointestinal: normoactive bowel sounds, soft, non-tender Integumentary: normal Extremities: no cyanosis, no edema Musculoskeletal: no deformities pupils equal and round, unable to assess due to mental status Ventilator Settings Ventilator Settings: Ventilator Settings, Last 8 Hours Ventilator Tidal Volume 500 Setting Ventilator Tidal Volume 500 Setting Ventilator Tidal Volume 500 Setting Ventilator Tidal Volume 500 Setting Ventilator Tidal Volume 500 Setting Ventilator Tidal Volume 500 Setting Ventilator Tidal Volume 500 Setting Ventilator Tidal Volume 500 Setting Ventilator Tidal Volume 500 Setting Ventilator Tidal Volume 500 Setting Ventilator Tidal Volume 500 Setting Ventilator Respiratory Rate 14 Setting Ventilator Respiratory Rate 14 Setting Ventilator Respiratory Rate 14 Setting Ventilator Respiratory Rate 14 Setting Ventilator Respiratory Rate 14 Setting Ventilator Respiratory Rate 14 Setting Ventilator Respiratory Rate 14 Setting Ventilator Respiratory Rate 14 Setting Ventilator Respiratory Rate 14 Setting Ventilator Respiratory Rate 14 Setting Ventilator Respiratory Rate 14 Setting Actual Respiratory Rate 14 Actual Respiratory Rate 14 Actual Respiratory Rate 14 Actual Respiratory Rate 14 Actual Respiratory Rate 14 Actual Respiratory Rate 14 Actual Respiratory Rate 14 Actual Respiratory Rate 14 Actual Respiratory Rate 14 Actual Respiratory Rate 14 Positive End Expiratory 5 Pressure Positive End Expiratory 5 Pressure Positive End Expiratory 5 Pressure Positive End Expiratory 5 Pressure Positive End Expiratory 5 Pressure Positive End Expiratory 5 Pressure Positive End Expiratory 5 Pressure Positive End Expiratory 5 Pressure Positive End Expiratory 5 Pressure Positive End Expiratory 5 Pressure Positive End Expiratory 5 Pressure Peak Inspiratory Airway 20 Pressure Peak Inspiratory Airway 21 Pressure Peak Inspiratory Airway 21 Pressure Peak Inspiratory Airway 20 Pressure Peak Inspiratory Airway 20 Pressure Peak Inspiratory Airway 20 Pressure Peak Inspiratory Airway 21 Pressure Peak Inspiratory Airway 21 Pressure Peak Inspiratory Airway 21 Pressure Peak Inspiratory Airway 21 Pressure Results - Laboratory Findings CBC and BMP: 11/15/17 03:55 11/15/17 03:55 ABG ABG pH 7.40 pH Units (7.32-7.45) 11/15/17 04:58 ABG pCO2 50 mmHg (35-45) H 11/15/17 04:58 ABG pO2 86 mmHg (85-104) 11/15/17 04:58 ABG O2 Saturation 96 % (95-98) 11/15/17 04:58 PT/INR, D-dimer PT 12.1 Seconds (9.4-12.1) 11/13/17 03:02 Abnormal lab findings: Abnormal lab results RBC 3.80 M/mcL (4.19-5.50) L 11/15/17 03:55 Hgb 10.7 g/dL (12.9-16.9) L 11/15/17 03:55 Hct 34.4 % (37.5-50.1) L 11/15/17 03:55 MCHC 31.1 g/dL (31.6-35.5) L 11/15/17 03:55 MPV 9.2 fL (9.4-12.4) L 11/15/17 03:55 ABG pCO2 50 mmHg (35-45) H 11/15/17 04:58 ABG HCO3 31 mEq/L (21-27) H 11/15/17 04:58 ABG Total CO2 32 mEq/L (20-26) H 11/15/17 04:58 ABG Base Excess 5 mEq/L (-2 to 3) H 11/15/17 04:58 Chloride 108 mEq/L (98-107) H 11/15/17 03:55 POC Glucose 141 mg/dL (70-99) H 11/12/17 06:16 Calcium 8.2 mg/dL (8.6-10.3) L 11/15/17 03:55 AST 82 Units/L (13-39) H 11/13/17 03:02 ALT 65 Units/L (7-52) H 11/13/17 03:02 Creatine Kinase 260 Units/L (30-223) H 11/13/17 03:02 Serum Total Protein 6.3 g/dL (6.4-8.9) L 11/13/17 03:02 Albumin 3.0 g/dL (3.5-5.7) L 11/13/17 03:02 Albumin/Globulin Ratio 0.9 (1.1-2.2) L 11/13/17 03:02 HDL Cholesterol 21 mg/dL (40-59) L 11/13/17 03:02 Cholesterol/HDL Ratio 5.9 (0-4.9) H 11/13/17 03:02 Urine Clarity Cloudy (Clear) A 11/12/17 03:34 Urine Protein >=300 mg/dL (Neg-Trace) H 11/12/17 03:34 Urine Blood Large (Negative) H 11/12/17 03:34 Ur Leukocyte Esterase Small (Negative) H 11/12/17 03:34 Urine Microscopic RBC 50-100 per hpf (0-3) H 11/12/17 03:34 Urine Microscopic WBC 30-50 per hpf (0-3) H 11/12/17 03:34 Salicylates < 2.5 mg/dL (15.0-30.0) L 11/12/17 03:10 Acetaminophen < 10 mcg/mL (10-20) L 11/12/17 03:10 Ur Amphetamines Screen Positive ng/mL (Ahxhxm=2782) H 11/12/17 02:55 Urine Cocaine Screen Positive ng/mL (Cutoff= 300) H 11/12/17 02:55 - Microbiology Findings Microbiology Findings: Microbiology, Last 48 Hours 11/12/17 05:36 Blood Culture - Preliminary Peripheral Venipuncture Culture is incubating and being continuously monitored for growth. Final report to follow. 11/12/17 15:00 Sputum Culture - Final Sputum - Clinical Findings Intake & Output: Intake & Output 11/14/17 11/15/17 11/15/17 23:59 07:59 15:59 Intake Total 2191.2 / 2191.2 400 / 400 Output Total 900 / 900 325 / 325 Balance 1291.2 / 1291.2 75 / 75 Weight 108 kg - VTE Documentation of Mechanical Device: Intermittent pneumatic compression device Consult Discharge Plan - Plan Referrals: Lex eRy MD [Primary Care Provider] -
[2017-11-15] MEDS: Dexmedetomidine HCl 400 MCG/100 ML MLS IVC SCH ×4 (08:46→21:45)
[2017-11-15] MEDS: Pantoprazole 40 MG VIAL IVP SCH (08:47)
[2017-11-15] MEDS: Chlorhexidine Rinse 15 ML MOUTHWASH MM SCH ×2 (08:47→21:13)
[2017-11-15] MEDS: FentaNYL (PF) 1,000 MCG in 0.9 % Sodium Chloride 80 ML IVC SCH (10:54)
[2017-11-15] MEDS ORDERED: Ringers Solution, Lactated 1,000 ML IVC ONE (15:32)
[2017-11-15] MEDS ORDERED: *HR* Midazolam HCl 2 MG/2 ML VIAL IVP PRN (16:33)
[2017-11-15 17:01] LABS: Basophils # 0.1 K/mcL (0.0-0.2); Basophils % 0.6 %; Eosinophils # 0.3 K/mcL (0.0-0.6); Eosinophils % 3.4 %; Hematocrit 38.3 % (37.5-50.1); Immature Granulocytes % 0.8 % (0-4); Lymphocytes # 2.1 K/mcL (0.6-4.6); Lymphocytes % 22.3 %; Mean Corpuscular HGB Conc 31.3 g/dL (31.6-35.5); Mean Corpuscular Volume 92.5 fL (83.0-100.0); Mean Platelet Volume 9.5 fL (9.4-12.4); Monocytes # 1.2 K/mcL (0.0-1.3); Monocytes % 12.8 %; Neutrophils # 5.6 K/mcL (1.6-8.9); Platelet Count 307 K/mcL (140-400); Red Blood Count 4.14 M/mcL (4.19-5.50); Red Cell Distribution Width 14.4 % (11.5-14.5); Segmented Neutrophils % 60.1 %
[2017-11-15 17:28] LABS: BUN/Creatinine Ratio 8 (6-26); Blood Urea Nitrogen 10 mg/dL (6-20); Calcium 8.2 mg/dL (8.6-10.3); Carbon Dioxide 26 mEq/L (23-29); Chloride 107 mEq/L (98-107); Glucose 109 mg/dL (70-105); Osmolality,Calculated 296 (280-300); Potassium 4.1 mEq/L (3.5-5.1); Sodium 143 mEq/L (136-145); eGFR For African Americans > 60 (> 60); eGFR For Non-African Americans > 60 (> 60)
[2017-11-15] MEDS: Thiamine (B-1) 100 MG, Folic Acid 1 MG, MVI, adult with vitamin K 10 ML in 0.9 % Sodi... IVPB SCH (18:30)
[2017-11-16] MEDS: Lacri-Lube 3.5 GM TUBE BOTH EYES SCH ×7 (00:05→23:47)
[2017-11-16] MEDS: Dexmedetomidine HCl 400 MCG/100 ML MLS IVC SCH ×4 (01:28→17:52)
[2017-11-16 04:55] LABS: ABG Base Excess 4 mEq/L (-2 to 3); ABG HCO3 30 mEq/L (21-27); ABG Oxygen Saturation 97 % (95-98); ABG PCO2 48 mmHg (35-45); ABG PO2 87 mmHg (85-104); ABG TCO2 31 mEq/L (20-26); Blood Gas Modality VC; Blood Gas PEEP 5 cm H2O; Blood Gas Respiration Rate 14; Blood Gas VT 500 cc
[2017-11-16] MEDS: Piperacillin/Tazobactam 3.375 GM in 0.9 % Sodium Chloride Mini Bag 100 ML IVPB SCH ×3 (05:13→20:41)
[2017-11-16] MEDS: *HR* Heparin 5,000 UNIT/ML VIAL SQ SCH ×2 (05:13→18:00)
[2017-11-16 06:00] LABS: Basophils % 0.5 %; Eosinophils # 0.3 K/mcL (0.0-0.6); Eosinophils % 3.9 %; Hematocrit 34.1 % (37.5-50.1); Immature Granulocytes % 1.1 % (0-4); Lymphocytes # 1.8 K/mcL (0.6-4.6); Lymphocytes % 21.8 %; Mean Corpuscular HGB Conc 32.3 g/dL (31.6-35.5); Mean Platelet Volume 10.5 fL (9.4-12.4); Monocytes # 0.9 K/mcL (0.0-1.3); Monocytes % 10.5 %; Neutrophils # 5.1 K/mcL (1.6-8.9); Platelet Count 285 K/mcL (140-400); Red Blood Count 3.79 M/mcL (4.19-5.50); Red Cell Distribution Width 14.3 % (11.5-14.5); Segmented Neutrophils % 62.2 %
[2017-11-16] MEDS ORDERED: Furosemide 40 MG/4 ML VIAL ONE (07:35)
--- NOTE | 2017-11-16 08:23 | Pulmonology Progress Note ---
Date of Encounter: 11/16/17 Time of Encounter: 08:23 Assessment and Plan (1) Encephalopathy Current Visit: Yes Status: Acute Patient seen and examined at bedside Labs, radiology, chart personally reviewed. Management was reviewed during multidisciplinary critical care rounds. DIGITAL MEDIA MANAGER: Patient is in ethanol withdrawal complicated by acute use of cocaine and methamphetamine. Remains delirious will We will focus on denominational of sleep- wake cycle. avoid sensory deprivation, and avoid DIGITAL MEDIA MANAGER depressant medications as able. Pulm: Respiratory failure on vent complicated by suspected aspiration pneumonia requiring mechanical ventilation he was liberated from the vent today I suspect a component of cardiogenic pulmonary edema and suspected pneumonia complicating course but has acceptable oxygenation on oxygen mask Cards: Blood pressure monitored and stable patient is not tachycardic continue to monitor on telemetry FEN-GI: Advance diet after speech and swallow eval Renal: Urine output monitored and stable electrolytes will be monitored daily replaced per protocol continue to measure serum creatinine daily ID: Pyrexia overnight cultures obtained he remains on broad-spectrum antibiotics for aspiration pneumonia we will give another dose of antibiotics today if cultures remain negative then likely can stop tomorrow as no further episodes of pyrexia and white count remained normal as does lactate Heme/Onc: DVT prophylaxis has been given Endo: Glucose Monitored and is in acceptable range Integ/MSK: Skin Care per routine ICU Nursing Protocol to prevent ulcers. Lines: All lines examined without evidence of infection : Dispo: He will remain in ICU for close monitoring status post extubation CODE: Full his fiancee was updated at bedside QUESTIONS answered (2) Acute respiratory failure Current Visit: Yes Status: Acute Qualifiers: Respiratory failure complication: hypoxia Qualified Code(s): J96.01 - Acute respiratory failure with hypoxia (3) Aspiration pneumonia Current Visit: Yes Status: Acute Qualifiers: Aspiration pneumonia type: unspecified Laterality: bilateral Lung location: unspecified part of lung Qualified Code(s): J69.0 - Pneumonitis due to inhalation of food and vomit (4) Alcohol withdrawal Current Visit: Yes Status: Acute Qualifiers: Complication of substance-induced condition: with unspecified complication Qualified Code(s): F10.239 - Alcohol dependence with withdrawal, unspecified Subjective Principal diagnosis: Encephalopathy Interval history: Patient spiked a fever 2 to greater than 101. He had blood cultures obtained at that time and chest x-ray which was concerning for possibly evolving pneumonia. Fortunately had no further episodes of pyrexia subsequent to this. He is more awake today although remains delirious but was able to follow commands. Liberation parameters were acceptable and he was extubated successfully to oxygen mask. Objective PUL Vital signs: Last Vital Signs Temp 98.5 F 11/16/17 08:00 Pulse 58 11/16/17 06:00 Resp 16 11/16/17 06:00 BP 93/50 11/16/17 06:00 Pulse Ox 97 11/16/17 06:00 General appearance: other (He is awake and alert is able to follow simple commands but remains confused he is clearly delirious with noted inattentiveness ) Eyes: nonicteric ENT: oropharynx moist Effort: mildly labored Auscultation: bilateral: rhonchi Cardiovascular: regular rate and rhythm Gastrointestinal: normoactive bowel sounds Integumentary: normal Extremities: no cyanosis, no edema, no clubbing Musculoskeletal: no deformities non-focal exam anxious Ventilator Settings Ventilator Settings: Ventilator Settings, Last 8 Hours Ventilator Tidal Volume 500 Setting Ventilator Tidal Volume 500 Setting Ventilator Tidal Volume 500 Setting Ventilator Tidal Volume 500 Setting Ventilator Tidal Volume 500 Setting Ventilator Tidal Volume 500 Setting Ventilator Tidal Volume 500 Setting Ventilator Tidal Volume 500 Setting Ventilator Tidal Volume 500 Setting Ventilator Tidal Volume 500 Setting Ventilator Respiratory Rate 14 Setting Ventilator Respiratory Rate 14 Setting Ventilator Respiratory Rate 14 Setting Ventilator Respiratory Rate 14 Setting Ventilator Respiratory Rate 14 Setting Ventilator Respiratory Rate 14 Setting Ventilator Respiratory Rate 14 Setting Ventilator Respiratory Rate 14 Setting Ventilator Respiratory Rate 14 Setting Ventilator Respiratory Rate 14 Setting Actual Respiratory Rate 16 Actual Respiratory Rate 16 Actual Respiratory Rate 14 Actual Respiratory Rate 14 Actual Respiratory Rate 14 Actual Respiratory Rate 14 Actual Respiratory Rate 19 Actual Respiratory Rate 15 Actual Respiratory Rate 15 Positive End Expiratory 5 Pressure Positive End Expiratory 5 Pressure Positive End Expiratory 5 Pressure Positive End Expiratory 5 Pressure Positive End Expiratory 5 Pressure Positive End Expiratory 5 Pressure Positive End Expiratory 5 Pressure Positive End Expiratory 5 Pressure Positive End Expiratory 5 Pressure Positive End Expiratory 5 Pressure Peak Inspiratory Airway 23 Pressure Peak Inspiratory Airway 22 Pressure Peak Inspiratory Airway 21 Pressure Peak Inspiratory Airway 21 Pressure Peak Inspiratory Airway 21 Pressure Peak Inspiratory Airway 21 Pressure Peak Inspiratory Airway 21 Pressure Peak Inspiratory Airway 21 Pressure Peak Inspiratory Airway 22 Pressure Results - Laboratory Findings CBC and BMP: 11/16/17 05:42 11/16/17 08:06 ABG ABG pH 7.40 pH Units (7.32-7.45) 11/16/17 04:51 ABG pCO2 48 mmHg (35-45) H 11/16/17 04:51 ABG pO2 87 mmHg (85-104) 11/16/17 04:51 ABG O2 Saturation 97 % (95-98) 11/16/17 04:51 PT/INR, D-dimer PT 12.1 Seconds (9.4-12.1) 11/13/17 03:02 Abnormal lab findings: Abnormal lab results RBC 3.79 M/mcL (4.19-5.50) L 11/16/17 05:42 Hgb 11.0 g/dL (12.9-16.9) L 11/16/17 05:42 Hct 34.1 % (37.5-50.1) L 11/16/17 05:42 ABG pCO2 48 mmHg (35-45) H 11/16/17 04:51 ABG HCO3 30 mEq/L (21-27) H 11/16/17 04:51 ABG Total CO2 31 mEq/L (20-26) H 11/16/17 04:51 ABG Base Excess 4 mEq/L (-2 to 3) H 11/16/17 04:51 Glucose 109 mg/dL (70-105) H 11/15/17 16:41 POC Glucose 136 mg/dL (70-99) H 11/15/17 23:23 Calcium 8.2 mg/dL (8.6-10.3) L 11/15/17 16:41 AST 82 Units/L (13-39) H 11/13/17 03:02 ALT 65 Units/L (7-52) H 11/13/17 03:02 Creatine Kinase 260 Units/L (30-223) H 11/13/17 03:02 Serum Total Protein 6.3 g/dL (6.4-8.9) L 11/13/17 03:02 Albumin 3.0 g/dL (3.5-5.7) L 11/13/17 03:02 Albumin/Globulin Ratio 0.9 (1.1-2.2) L 11/13/17 03:02 HDL Cholesterol 21 mg/dL (40-59) L 11/13/17 03:02 Cholesterol/HDL Ratio 5.9 (0-4.9) H 11/13/17 03:02 Urine Clarity Cloudy (Clear) A 11/12/17 03:34 Urine Protein >=300 mg/dL (Neg-Trace) H 11/12/17 03:34 Urine Blood Large (Negative) H 11/12/17 03:34 Ur Leukocyte Esterase Small (Negative) H 11/12/17 03:34 Urine Microscopic RBC 50-100 per hpf (0-3) H 11/12/17 03:34 Urine Microscopic WBC 30-50 per hpf (0-3) H 11/12/17 03:34 Salicylates < 2.5 mg/dL (15.0-30.0) L 11/12/17 03:10 Acetaminophen < 10 mcg/mL (10-20) L 11/12/17 03:10 Ur Amphetamines Screen Positive ng/mL ([id number]) H 11/12/17 02:55 Urine Cocaine Screen Positive ng/mL (Cutoff= 300) H 11/12/17 02:55 - Microbiology Findings Microbiology Findings: Microbiology, Last 48 Hours 11/15/17 16:41 Blood Culture - Preliminary Peripheral Venipuncture Culture is incubating and being continuously monitored for growth. Final report to follow. 11/15/17 16:41 Blood Culture - Preliminary Peripheral Venipuncture Culture is incubating and being continuously monitored for growth. Final report to follow. 11/15/17 16:30 Sputum Culture - Preliminary Sputum 11/12/17 05:36 Blood Culture - Preliminary Peripheral Venipuncture Culture is incubating and being continuously monitored for growth. Final report to follow. 11/12/17 15:00 Sputum Culture - Final Sputum - Diagnostic Findings Chest x-ray: report reviewed, image reviewed - Clinical Findings Intake & Output: Intake & Output 11/15/17 11/16/17 11/16/17 23:59 07:59 15:59 Intake Total 803 / 803 1260.2 / 1260.2 Output Total 350 / 350 175 / 175 75 / 75 Balance 453 / 453 1085.2 / 1085.2 -75 / -75 Weight 108.2 kg - VTE Documentation of Mechanical Device: Intermittent pneumatic compression device Consult Discharge Plan - Plan Referrals: Lex Rey MD [Primary Care Provider] -
[2017-11-16 08:36] LABS: BUN/Creatinine Ratio 10 (6-26); Blood Urea Nitrogen 10 mg/dL (6-20); Calcium 8.4 mg/dL (8.6-10.3); Carbon Dioxide 28 mEq/L (23-29); Chloride 107 mEq/L (98-107); Glucose 125 mg/dL (70-105); Osmolality,Calculated 293 (280-300); Phosphorous 3.8 mg/dL (2.7-4.5); Potassium 3.7 mEq/L (3.5-5.1); Sodium 141 mEq/L (136-145); eGFR For African Americans > 60 (> 60); eGFR For Non-African Americans > 60 (> 60)
[2017-11-16] MEDS: Pantoprazole 40 MG VIAL IVP SCH (09:11)
[2017-11-16] MEDS: Chlorhexidine Rinse 15 ML MOUTHWASH MM SCH ×2 (09:11→17:53)
[2017-11-16] MEDS: Thiamine (B-1) 100 MG, Folic Acid 1 MG, MVI, adult with vitamin K 10 ML in 0.9 % Sodi... IVPB SCH (18:00)
[2017-11-17 03:12] LABS: Basophils % 0.4 %; Eosinophils # 0.4 K/mcL (0.0-0.6); Eosinophils % 4.3 %; Hematocrit 34.1 % (37.5-50.1); Immature Granulocytes % 0.5 % (0-4); Lymphocytes # 1.8 K/mcL (0.6-4.6); Mean Corpuscular HGB Conc 32.3 g/dL (31.6-35.5); Mean Corpuscular Hemoglobin 28.9 pg (28.0-33.3); Mean Corpuscular Volume 89.7 fL (83.0-100.0); Mean Platelet Volume 9.6 fL (9.4-12.4); Platelet Count 327 K/mcL (140-400); Red Cell Distribution Width 13.9 % (11.5-14.5); Segmented Neutrophils % 60.8 %
[2017-11-17 03:15] LABS: BUN/Creatinine Ratio 12 (6-26); Blood Urea Nitrogen 11 mg/dL (6-20); Calcium 8.3 mg/dL (8.6-10.3); Carbon Dioxide 30 mEq/L (23-29); Chloride 104 mEq/L (98-107); Glucose 100 mg/dL (70-105); Magnesium 1.9 mg/dL (1.6-2.6); Osmolality,Calculated 289 (280-300); Phosphorous 3.1 mg/dL (2.7-4.5); Potassium 3.4 mEq/L (3.5-5.1); Sodium 140 mEq/L (136-145); eGFR For African Americans > 60 (> 60); eGFR For Non-African Americans > 60 (> 60)
[2017-11-17] MEDS: Dexmedetomidine HCl 400 MCG/100 ML MLS IVC SCH (03:52)
[2017-11-17] MEDS: Lacri-Lube 3.5 GM TUBE BOTH EYES SCH (04:20)
[2017-11-17] MEDS: *HR* Heparin 5,000 UNIT/ML VIAL SQ SCH ×2 (05:16→18:36)
[2017-11-17] MEDS: Piperacillin/Tazobactam 3.375 GM in 0.9 % Sodium Chloride Mini Bag 100 ML IVPB SCH (05:16)
--- NOTE | 2017-11-17 08:10 | Pulmonology Progress Note ---
<Aristides Solis W - Last Filed: 11/17/17 10:18> Date of Encounter: 11/17/17 Assessment and Plan (1) Encephalopathy Current Visit: Yes Status: Acute (2) Acute respiratory failure Current Visit: Yes Status: Acute Qualifiers: Respiratory failure complication: hypoxia Qualified Code(s): J96.01 - Acute respiratory failure with hypoxia (3) Aspiration pneumonia Current Visit: Yes Status: Acute Qualifiers: Aspiration pneumonia type: unspecified Laterality: bilateral Lung location: unspecified part of lung Qualified Code(s): J69.0 - Pneumonitis due to inhalation of food and vomit (4) Alcohol withdrawal Current Visit: Yes Status: Acute Qualifiers: Complication of substance-induced condition: with unspecified complication Qualified Code(s): F10.239 - Alcohol dependence with withdrawal, unspecified Objective PUL Vital signs: Last Vital Signs Temp 98.2 F 11/17/17 08:02 Pulse 67 11/17/17 06:00 Resp 18 11/17/17 06:00 BP 113/63 11/17/17 06:00 Pulse Ox 89 11/17/17 06:00 Results - Laboratory Findings CBC and BMP: 11/17/17 02:46 11/17/17 07:49 ABG ABG pH 7.40 pH Units (7.32-7.45) 11/16/17 04:51 ABG pCO2 48 mmHg (35-45) H 11/16/17 04:51 ABG pO2 87 mmHg (85-104) 11/16/17 04:51 ABG O2 Saturation 97 % (95-98) 11/16/17 04:51 PT/INR, D-dimer PT 12.1 Seconds (9.4-12.1) 11/13/17 03:02 Abnormal lab findings: Abnormal lab results RBC 3.80 M/mcL (4.19-5.50) L 11/17/17 02:46 Hgb 11.0 g/dL (12.9-16.9) L 11/17/17 02:46 Hct 34.1 % (37.5-50.1) L 11/17/17 02:46 ABG pCO2 48 mmHg (35-45) H 11/16/17 04:51 ABG HCO3 30 mEq/L (21-27) H 11/16/17 04:51 ABG Total CO2 31 mEq/L (20-26) H 11/16/17 04:51 ABG Base Excess 4 mEq/L (-2 to 3) H 11/16/17 04:51 Carbon Dioxide 30 mEq/L (23-29) H 11/17/17 02:46 Calcium 8.3 mg/dL (8.6-10.3) L 11/17/17 02:46 AST 82 Units/L (13-39) H 11/13/17 03:02 ALT 65 Units/L (7-52) H 11/13/17 03:02 Creatine Kinase 260 Units/L (30-223) H 11/13/17 03:02 Serum Total Protein 6.3 g/dL (6.4-8.9) L 11/13/17 03:02 Albumin 3.0 g/dL (3.5-5.7) L 11/13/17 03:02 Albumin/Globulin Ratio 0.9 (1.1-2.2) L 11/13/17 03:02 HDL Cholesterol 21 mg/dL (40-59) L 11/13/17 03:02 Cholesterol/HDL Ratio 5.9 (0-4.9) H 11/13/17 03:02 Urine Clarity Cloudy (Clear) A 11/12/17 03:34 Urine Protein >=300 mg/dL (Neg-Trace) H 11/12/17 03:34 Urine Blood Large (Negative) H 11/12/17 03:34 Ur Leukocyte Esterase Small (Negative) H 11/12/17 03:34 Urine Microscopic RBC 50-100 per hpf (0-3) H 11/12/17 03:34 Urine Microscopic WBC 30-50 per hpf (0-3) H 11/12/17 03:34 Salicylates < 2.5 mg/dL (15.0-30.0) L 11/12/17 03:10 Acetaminophen < 10 mcg/mL (10-20) L 11/12/17 03:10 Ur Amphetamines Screen Positive ng/mL (Rhpyoc=[id number]) H 11/12/17 02:55 Urine Cocaine Screen Positive ng/mL (Cutoff= 300) H 11/12/17 02:55 - Microbiology Findings Microbiology Findings: Microbiology, Last 48 Hours 11/15/17 16:30 Sputum Culture - Final Sputum P. aeruginosa MDRO 11/15/17 16:30 Urine Culture - Final Urine,[place] No significant growth. 11/15/17 16:41 Blood Culture - Preliminary Peripheral Venipuncture Culture is incubating and being continuously monitored for growth. Final report to follow. 11/15/17 16:41 Blood Culture - Preliminary Peripheral Venipuncture Culture is incubating and being continuously monitored for growth. Final report to follow. 11/12/17 05:36 Blood Culture - Preliminary Peripheral Venipuncture Culture is incubating and being continuously monitored for growth. Final report to follow. - Clinical Findings Intake & Output: Intake & Output 11/16/17 11/17/17 11/17/17 23:59 07:59 15:59 Intake Total 570 / 570 610 / 610 Output Total 1400 / 1400 175 / 175 150 / 150 Balance -830 / -830 435 / 435 -150 / -150 Weight 103.1 kg Consult Discharge Plan - Plan Additional Instructions: recommend Coordinate outpt mental health appointment follow-up pt already linked with karlee radha. Additional recommend coordinating substance abuse treatment program upon D/C. Reeducate pt on the importance of sobriety and 90 meetings in 90 days and finding a sponsor. Referrals: Lex Rey MD [Primary Care Provider] - - Attending Attestation I examined this patient and my medical decision-making was reviewed with the Resident Physician. I agree with the documented findings, disposition and treatment plan as described except to the extent set forth below. We independently had [id number] contact with the patient Patient seen and examined at bedside Labs, radiology, chart personally reviewed. Management was reviewed during multidisciplinary critical care rounds. POWDER MIXER: More awka today approc [facility] baseline. Severe PTSD and ETOH Abuse. Psych consult today. Pulm: Hypoxi respiratory failure extubated. weaned off of 02 cont to treat for PNA Cards: BP monitored and stable. FEN-GI: ADAT Renal: UOP monitored and stable ID: MDRO PSDA PNA swithced to Cefepime to complete 14 day course. Heme/Onc: DVT prophylaxis given Endo: Glucose Monitored Integ/MSK: Skin Care per routine ICU Nursing Protocol to prevent ulcers. Lines: All lines examined without evidence of infection : Dispo: Stable for med Tele CODE: Full <George Gorman - Last Filed: 11/17/17 13:18> Date of Encounter: 11/17/17 Time of Encounter: 08:30 Assessment and Plan (1) Acute respiratory failure Current Visit: Yes Status: Acute Likely secondary to cardiogenic pulmonary edema and pneumonia. Patient was extubated yesterday. Currently has O2 saturation of 89 and 90% on room air. Blood pressure and heart rate are stable. Patient will be transferred out of the ICU and to telemetry floor. Spoke to hospitalist who agreed to accept the patient. Qualifiers: Respiratory failure complication: hypoxia Qualified Code(s): J96.01 - Acute respiratory failure with hypoxia (2) Aspiration pneumonia Current Visit: Yes Status: Acute Patient was extubated yesterday. Has been 89-90% O2 saturation on room air. Afebrile. White blood cell count normal at 8.2. Currently denies any shortness of breath. Blood cultures are still pending. Sputum culture from 11/15 shows multidrug-resistant Pseudomonas. On day 6 of Zosyn. - Changed Zosyn to cefepime 2 g every 8 hours based on new culture. Patient will need to continue treatment for total of 10-14 days. Qualifiers: Aspiration pneumonia type: unspecified Laterality: bilateral Lung location: unspecified part of lung Qualified Code(s): J69.0 - Pneumonitis due to inhalation of food and vomit (3) Encephalopathy Current Visit: Yes Status: Resolved Patient alert and oriented 3. Alert and awake at bedside. Able to answer questions appropriately.. (4) Alcohol withdrawal Current Visit: Yes Status: Acute Currently off Precedex. He does not seem agitated today. Qualifiers: Complication of substance-induced condition: with unspecified complication Qualified Code(s): F10.239 - Alcohol dependence with withdrawal, unspecified (5) Substance abuse Current Visit: Yes Status: Acute Patient has history of polysubstance abuse. UDS was positive for methamphetamines and cocaine. Psych consult ordered. Patient was recommended for a substance abuse treatment program and was recommended to abstain from all alcohol or illicit substances. He was restarted on sertraline 50 mg by mouth every morning for substance induced depression and anxiety. (6) DVT prophylaxis Current Visit: Yes Status: Acute Heparin 5000 units subcutaneously twice a day. Subjective Principal diagnosis: Encephalopathy Interval history: When seen today patient says that he feels better than yesterday. Patient is complaining of new onset minor numbness/tingling of both legs since yesterday. He denies any chest pain or shortness of breath. Denies any fever or chills. Denies any abdominal pain, nausea, or vomiting. He says he has been able to tolerate his diet. Objective PUL Vital signs: Last Vital Signs Temp 98.2 F 11/17/17 08:02 Pulse 67 11/17/17 06:00 Resp 18 11/17/17 06:00 BP 113/63 11/17/17 06:00 Pulse Ox 89 11/17/17 06:00 General appearance: no acute distress Eyes: nonicteric ENT: oropharynx moist Neck: supple Auscultation: bilateral: rhonchi Cardiovascular: regular rate and rhythm Gastrointestinal: normoactive bowel sounds, soft, tender (Mild diffuse tenderness with deep palpation.) Integumentary: normal Extremities: no cyanosis, no edema, no clubbing, pink and warm, pulses normal (+ 2 out of 4 pedal pulses bilaterally. ), no ischemia or petechiae, other (No calf tenderness bilaterally. Negative Homans sign bilaterally.) Musculoskeletal: no deformities Gait: normal posture normal mental status (Alert and oriented 3), other (Sensations intact and equal bilaterally of lower extremities. ) mood appropriate, affect normal Results - Laboratory Findings CBC and BMP: 11/17/17 02:46 11/17/17 07:49 ABG ABG pH 7.40 pH Units (7.32-7.45) 11/16/17 04:51 ABG pCO2 48 mmHg (35-45) H 11/16/17 04:51 ABG pO2 87 mmHg (85-104) 11/16/17 04:51 ABG O2 Saturation 97 % (95-98) 11/16/17 04:51 PT/INR, D-dimer PT 12.1 Seconds (9.4-12.1) 11/13/17 03:02 Abnormal lab findings: Abnormal lab results RBC 3.80 M/mcL (4.19-5.50) L 11/17/17 02:46 Hgb 11.0 g/dL (12.9-16.9) L 11/17/17 02:46 Hct 34.1 % (37.5-50.1) L 11/17/17 02:46 ABG pCO2 48 mmHg (35-45) H 11/16/17 04:51 ABG HCO3 30 mEq/L (21-27) H 11/16/17 04:51 ABG Total CO2 31 mEq/L (20-26) H 11/16/17 04:51 ABG Base Excess 4 mEq/L (-2 to 3) H 11/16/17 04:51 Potassium 3.4 mEq/L (3.5-5.1) L 11/17/17 02:46 Carbon Dioxide 30 mEq/L (23-29) H 11/17/17 02:46 Calcium 8.3 mg/dL (8.6-10.3) L 11/17/17 02:46 AST 82 Units/L (13-39) H 11/13/17 03:02 ALT 65 Units/L (7-52) H 11/13/17 03:02 Creatine Kinase 260 Units/L (30-223) H 11/13/17 03:02 Serum Total Protein 6.3 g/dL (6.4-8.9) L 11/13/17 03:02 Albumin 3.0 g/dL (3.5-5.7) L 11/13/17 03:02 Albumin/Globulin Ratio 0.9 (1.1-2.2) L 11/13/17 03:02 HDL Cholesterol 21 mg/dL (40-59) L 11/13/17 03:02 Cholesterol/HDL Ratio 5.9 (0-4.9) H 11/13/17 03:02 Urine Clarity Cloudy (Clear) A 11/12/17 03:34 Urine Protein >=300 mg/dL (Neg-Trace) H 11/12/17 03:34 Urine Blood Large (Negative) H 11/12/17 03:34 Ur Leukocyte Esterase Small (Negative) H 11/12/17 03:34 Urine Microscopic RBC 50-100 per hpf (0-3) H 11/12/17 03:34 Urine Microscopic WBC 30-50 per hpf (0-3) H 11/12/17 03:34 Salicylates < 2.5 mg/dL (15.0-30.0) L 11/12/17 03:10 Acetaminophen < 10 mcg/mL (10-20) L 11/12/17 03:10 Ur Amphetamines Screen Positive ng/mL ([id number]) H 11/12/17 02:55 Urine Cocaine Screen Positive ng/mL (Cutoff= 300) H 11/12/17 02:55 - Microbiology Findings Microbiology Findings: Microbiology, Last 48 Hours 11/15/17 16:30 Sputum Culture - Final Sputum P. aeruginosa MDRO 11/15/17 16:30 Urine Culture - Final Urine,[place] No significant growth. 11/15/17 16:41 Blood Culture - Preliminary Peripheral Venipuncture Culture is incubating and being continuously monitored for growth. Final report to follow. 11/15/17 16:41 Blood Culture - Preliminary Peripheral Venipuncture Culture is incubating and being continuously monitored for growth. Final report to follow. 11/12/17 05:36 Blood Culture - Preliminary Peripheral Venipuncture Culture is incubating and being continuously monitored for growth. Final report to follow. - Clinical Findings Intake & Output: Intake & Output 11/16/17 11/17/17 11/17/17 23:59 07:59 15:59 Intake Total 570 / 570 610 / 610 Output Total 1400 / 1400 175 / 175 150 / 150 Balance -830 / -830 435 / 435 -150 / -150 Weight 103.1 kg - VTE Documentation of Mechanical Device: Intermittent pneumatic compression device
[2017-11-17] MEDS ORDERED: Cefepime HCl 2,000 MG in Water for inj. (sterile) 20 ML 20 ML IVP SCH (09:00)
[2017-11-17] MEDS: Pantoprazole 40 MG VIAL IVP SCH (09:30)
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
[2017-11-17] MEDS ORDERED: Potassium Chloride 40 MEQ/200 ML BAG IVPB PRN (12:15)
[2017-11-17] MEDS ORDERED: Potassium Phosphate 44 MEQ in 0.9 % Sodium Chloride 250 ML IVPB PRN (12:15)
[2017-11-17] MEDS ORDERED: Naloxone 0.4 MG/ML INJ IVP PRN (12:15)
[2017-11-17] MEDS: Cefepime HCl 2,000 MG in Water for inj. (sterile) 20 ML 20 ML IVP SCH (18:36)
[2017-11-17] MEDS: Melatonin 3 MG TABLET PO PRN (22:02)
[2017-11-17] MEDS: Sennosides 8.6 MG TABLET PO SCH (22:02)
[2017-11-18] MEDS: Cefepime HCl 2,000 MG in Water for inj. (sterile) 20 ML 20 ML IVP SCH ×3 (02:17→18:52)
[2017-11-18] MEDS: *HR* Heparin 5,000 UNIT/ML VIAL SQ SCH ×2 (05:39→18:54)
[2017-11-18 06:31] LABS: Phosphorous 3.7 mg/dL (2.7-4.5)
[2017-11-18] MEDS: Sennosides 8.6 MG TABLET PO SCH ×2 (10:02→20:39)
[2017-11-18] MEDS: Pantoprazole 40 MG VIAL IVP SCH (10:02)
--- NOTE | 2017-11-18 10:38 | Internal Med Progress Note ---
Date of Encounter: 11/18/17 Time of Encounter: 10:38 - Assessment and plan (1) Substance abuse Current Visit: Yes Status: Chronic Assessment and plan: Patient has amphetamine and cocaine positive in urine toxic screen. psych eval noted, provided resources patient was recommended for a substance abuse treatment program and was recommended to abstain from all alcohol or illicit substances. He was restarted on sertraline 50 mg by mouth every morning for substance induced depression and anxiety. (2) Acute respiratory failure Current Visit: Yes Status: Resolved Assessment and plan: Likely secondary to cardiogenic pulmonary edema and pneumonia Now on room air, continue to monitor Qualifiers: Respiratory failure complication: hypoxia Qualified Code(s): J96.01 - Acute respiratory failure with hypoxia (3) Aspiration pneumonia Current Visit: Yes Status: Acute Assessment and plan: Extubated 11/17 Received 6 days of Zosyn Sputum culture with MDRO Pseudomonas Sensitibe to cefepime Day 2 on cefepime Will need 10 days of therapy Continue antibiotics Patient may need SNF to complete antibiotic regimen Qualifiers: Aspiration pneumonia type: unspecified Laterality: bilateral Lung location: unspecified part of lung Qualified Code(s): J69.0 - Pneumonitis due to inhalation of food and vomit (4) DVT prophylaxis Current Visit: Yes Status: Acute Assessment and plan: Heparin subcutaneously (5) Alcohol withdrawal Current Visit: Yes Status: Resolved Assessment and plan: resolved Qualifiers: Complication of substance-induced condition: with unspecified complication Qualified Code(s): F10.239 - Alcohol dependence with withdrawal, unspecified - Time Spent With Patient Total time spent is greater than 50% in coordination of care (as documented) at patient's floor/unit and/or counseling patient: - Subjective Interval history: Seen and examined at the [place] [id number] M with polysubstance abuse, depression, admitted to the ICU for management of acute resp failure secondary to aspiration PNA, encephalopathy he complains of [place] feet tingling and numbness, as well as LEft leg being bigger than right No calf tenderness - Constitutional Vitals: Temp Pulse Resp BP Pulse Ox 98.1 F 79 16 142/77 94 11/18/17 07:02 11/18/17 07:02 11/18/17 07:02 11/18/17 07:02 11/18/17 07:02 General appearance: Present: A&O X 3, pleasant, no acute distress - Head Head exam: Present: atraumatic, normocephalic - Eye Eye exam: Present: PERRL, conjuntiva pink, sclera anicteric Pupils: Present: PERRL - Neck Neck exam general surgery: Present: supple, trachea midline. Absent: lymphadenopathy - Respiratory Respiratory exam: Present: CTAB. Absent: accessory muscle use, rales, rhonchi, wheezes - Cardiovascular Cardiovascular exam: Present: RRR, +S1, +S2. Absent: diastolic murmur, gallop, rubs, systolic murmur - GI/Abdominal GI/Abdominal exam: Present: normal bowel sounds, soft, no peritoneal signs. Absent: distended, tenderness - Extremities Exam Extremities exam: Present: warm, radial pulses palpable and symmetrical. Absent : calf tenderness, cyanotic, pedal edema Additional comments: LLE >RLE, no calf tenderness - Neurological Exam Neurological exam: Present: alert, CN II-XII intact, oriented X3, no focal deficits. Absent: pronater drift, facial droop, speech deficit - Skin Skin exam: Present: dry, intact Internal Medicine: Result - Labs CBC & Chem 7: 11/17/17 02:46 11/17/17 07:49 - ABG Interpretation ABG results: ABG ABG pH 7.40 pH Units (7.32-7.45) 11/16/17 04:51 ABG pCO2 48 mmHg (35-45) H 11/16/17 04:51 ABG pO2 87 mmHg (85-104) 11/16/17 04:51 ABG O2 Saturation 97 % (95-98) 11/16/17 04:51 PT/INR, D-dimer PT 12.1 Seconds (9.4-12.1) 11/13/17 03:02 - VTE Documentation of Mechanical Device: Intermittent pneumatic compression device Consult Discharge Plan - Plan Additional Instructions: recommend Coordinate outpt mental health appointment follow-up pt already linked with [facility]. Additional recommend coordinating substance abuse treatment program upon D/C. Reeducate pt on the importance of sobriety and 90 meetings in 90 days and finding a sponsor. Referrals: Lex Rey MD [Primary Care Provider] -
[2017-11-18] MEDS: Melatonin 3 MG TABLET PO PRN (20:39)
[2017-11-19] MEDS: Cefepime HCl 2,000 MG in Water for inj. (sterile) 20 ML 20 ML IVP SCH ×3 (01:01→17:37)
[2017-11-19] MEDS: *HR* Heparin 5,000 UNIT/ML VIAL SQ SCH ×2 (05:25→17:38)
[2017-11-19 07:35] LABS: Basophils # 0.1 K/mcL (0.0-0.2); Basophils % 0.7 %; Eosinophils # 0.3 K/mcL (0.0-0.6); Hematocrit 36.9 % (37.5-50.1); Immature Granulocytes % 0.4 % (0-4); Lymphocytes # 1.6 K/mcL (0.6-4.6); Lymphocytes % 17.7 %; Mean Corpuscular HGB Conc 32.5 g/dL (31.6-35.5); Mean Corpuscular Hemoglobin 28.4 pg (28.0-33.3); Mean Corpuscular Volume 87.2 fL (83.0-100.0); Mean Platelet Volume 9.5 fL (9.4-12.4); Monocytes % 11.2 %; Neutrophils # 6.1 K/mcL (1.6-8.9); Platelet Count 389 K/mcL (140-400); Red Blood Count 4.23 M/mcL (4.19-5.50); Red Cell Distribution Width 13.4 % (11.5-14.5)
[2017-11-19 07:53] LABS: BUN/Creatinine Ratio 11 (6-26); Blood Urea Nitrogen 9 mg/dL (6-20); Carbon Dioxide 30 mEq/L (23-29); Chloride 103 mEq/L (98-107); Glucose 121 mg/dL (70-105); Osmolality,Calculated 288 (280-300); Potassium 3.3 mEq/L (3.5-5.1); Sodium 139 mEq/L (136-145); eGFR For African Americans > 60 (> 60); eGFR For Non-African Americans > 60 (> 60)
[2017-11-19] MEDS: Pantoprazole 40 MG VIAL IVP SCH (09:49)
[2017-11-19] MEDS: Sennosides 8.6 MG TABLET PO SCH ×2 (09:49→19:46)
--- NOTE | 2017-11-19 10:51 | Internal Med Progress Note ---
Date of Encounter: 11/19/17 Time of Encounter: 10:47 - Assessment and plan (1) Substance abuse Current Visit: Yes Status: Chronic Assessment and plan: Patient has amphetamine and cocaine positive in urine toxic screen. psych eval noted, provided resources patient was recommended for a substance abuse treatment program and was recommended to abstain from all alcohol or illicit substances. He was restarted on sertraline 50 mg by mouth every morning for substance induced depression and anxiety. (2) Acute respiratory failure Current Visit: Yes Status: Resolved Assessment and plan: Likely secondary to cardiogenic pulmonary edema and pneumonia Now on room air, continue to monitor Qualifiers: Respiratory failure complication: hypoxia Qualified Code(s): J96.01 - Acute respiratory failure with hypoxia (3) Aspiration pneumonia Current Visit: Yes Status: Acute Assessment and plan: Extubated 11/17 Received 6 days of Zosyn Sputum culture with MDRO Pseudomonas Sensitibe to cefepime Day 3 on cefepime Will need 10 days of therapy Continue antibiotics Patient may need SNF to complete antibiotic regimen Qualifiers: Aspiration pneumonia type: unspecified Laterality: bilateral Lung location: unspecified part of lung Qualified Code(s): J69.0 - Pneumonitis due to inhalation of food and vomit (4) DVT prophylaxis Current Visit: Yes Status: Acute Assessment and plan: Heparin subcutaneously (5) Alcohol withdrawal Current Visit: Yes Status: Resolved Assessment and plan: resolved Qualifiers: Complication of substance-induced condition: with unspecified complication Qualified Code(s): F10.239 - Alcohol dependence with withdrawal, unspecified - Time Spent With Patient Total time spent is greater than 50% in coordination of care (as documented) at patient's floor/unit and/or counseling patient: - Subjective Interval history: Seen and examined at the bedside 37 M with polysubstance abuse, depression, admitted to the ICU for management of acute resp failure secondary to aspiration PNA, encephalopathy in stable conditions, no new events overnight feet swelling and tingling has resolved no new complains - Constitutional Vitals: Temp Pulse Resp BP Pulse Ox 98.0 F 96 15 117/76 94 11/19/17 06:54 11/19/17 06:54 11/19/17 06:54 11/19/17 06:54 11/19/17 06:54 General appearance: Present: A&O X 3, pleasant, no acute distress - Head Head exam: Present: atraumatic, normocephalic - Eye Eye exam: Present: PERRL, conjuntiva pink, sclera anicteric Pupils: Present: PERRL - Neck Neck exam general surgery: Present: supple, trachea midline. Absent: lymphadenopathy - Respiratory Respiratory exam: Present: CTAB. Absent: accessory muscle use, rales, rhonchi, wheezes - Cardiovascular Cardiovascular exam: Present: RRR, +S1, +S2. Absent: diastolic murmur, gallop, rubs, systolic murmur - GI/Abdominal GI/Abdominal exam: Present: normal bowel sounds, soft, no peritoneal signs. Absent: distended, tenderness - Extremities Exam Extremities exam: Present: warm, radial pulses palpable and symmetrical. Absent : calf tenderness, cyanotic, pedal edema - Neurological Exam Neurological exam: Present: alert, CN II-XII intact, oriented X3, no focal deficits. Absent: pronater drift, facial droop, speech deficit - Skin Skin exam: Present: dry, intact Internal Medicine: Result - Labs CBC & Chem 7: 11/19/17 07:09 11/19/17 07:09 Labs: Short CBC 11/19/17 Range/Units 07:09 WBC 9.1 (4.3-11.1) K/mcL Hgb 12.0 L (12.9-16.9) g/dL Hct 36.9 L (37.5-50.1) % Plt Count 389 (140-400) K/mcL Neutrophils # 6.1 (1.6-8.9) K/mcL BMP 11/19/17 07:09 Sodium 139 Potassium 3.3 L Chloride 103 Carbon Dioxide 30 H BUN 9 Creatinine 0.81 Glucose 121 H Calcium 9.0 - ABG Interpretation ABG results: ABG ABG pH 7.40 pH Units (7.32-7.45) 11/16/17 04:51 ABG pCO2 48 mmHg (35-45) H 11/16/17 04:51 ABG pO2 87 mmHg (85-104) 11/16/17 04:51 ABG O2 Saturation 97 % (95-98) 11/16/17 04:51 PT/INR, D-dimer PT 12.1 Seconds (9.4-12.1) 11/13/17 03:02 - VTE Documentation of Mechanical Device: Intermittent pneumatic compression device Consult Discharge Plan - Plan Additional Instructions: recommend Coordinate outpt mental health appointment follow-up pt already linked with [facility]. Additional recommend coordinating substance abuse treatment program upon D/C. Reeducate pt on the importance of sobriety and 90 meetings in 90 days and finding a sponsor. Referrals: Lex Rey MD [Primary Care Provider] -
[2017-11-19] MEDS ORDERED: *HR* LORazepam 0.5 MG TABLET PO ONE (20:16)
[2017-11-19] MEDS: Nicotine 21 MG PATCH.TD24 TD SCH (20:46)
[2017-11-20] MEDS: Cefepime HCl 2,000 MG in Water for inj. (sterile) 20 ML 20 ML IVP SCH ×2 (01:48→09:49)
[2017-11-20] MEDS: *HR* Heparin 5,000 UNIT/ML VIAL SQ SCH (05:17)
[2017-11-20 07:00] VITALS: BP 122/80
[2017-11-20] MEDS: Nicotine 21 MG PATCH.TD24 TD SCH (09:48)
[2017-11-20] MEDS: Sennosides 8.6 MG TABLET PO SCH (09:49)
[2017-11-20] MEDS: Pantoprazole 40 MG VIAL IVP SCH (09:50)
--- NOTE | 2017-11-20 10:09 | Discharge Summary ---
- NOTES TO OUTPATIENT PROVIDER Notes to Outpatient Provider: With PCP Orders not resulted at time of discharge: Pending orders 11/15/17 16:41 Culture,Blood [BC] Stat Date of Encounter: 11/20/17 Time of Encounter: 11:03 - Discharge Diagnosis (1) Substance abuse Priority: Secondary Status: Chronic (2) Acute respiratory failure Priority: Primary Status: Resolved Qualifiers: Respiratory failure complication: hypoxia Qualified Code(s): J96.01 - Acute respiratory failure with hypoxia (3) Aspiration pneumonia Priority: Primary Status: Acute Qualifiers: Aspiration pneumonia type: unspecified Laterality: bilateral Lung location: unspecified part of lung Qualified Code(s): J69.0 - Pneumonitis due to inhalation of food and vomit (4) DVT prophylaxis Priority: Primary Status: Acute (5) Alcohol withdrawal Priority: Primary Status: Resolved Qualifiers: Complication of substance-induced condition: with unspecified complication Qualified Code(s): F10.239 - Alcohol dependence with withdrawal, unspecified Hospital course: Mr. Diamond is a 37 year old male with history of polysubstance abuse including opiates, IV drug abuse, amphetamine, alcohol and tobacco. He was admitted to the intensive care unit for acute respiratory failure secondary to aspiration pneumonia during a drug overdose episode. He was extubated 11/17 and received 6 days of intravenous Zosyn for pneumonia. However, his sputum culture grew MDR pseudomonas sensitive to cefotaxime. He was started on IV cefepime and transferred to the floors. Acute respiratory failure has resolved and the patient is on room air. Psychiatric was consulted for the patient recommended substance abuse treatment program. He was also started on sertraline 50 mg for Substance induced depression and anxiety. This morning, the patient denies new complaints, but reported his clinic is medical advice and would not protect to complete his intravenous antibiotic course for his pneumonia. Discharge discussed with: patient, nurse Time spent discussing smoking cessation with patient: 3 to 10 minutes - Time Spent with Patient Total time spent providing and/or coordinating discharge services: Less than 30 minutes - Discharge Medications Home Medications: Fluconazole [Diflucan] 200 mg PO DAILY #3 tab 06/21/17 [Rx] Ibuprofen [Motrin] 200 mg PO Q6HR PRN 07/14/17 [History] OxyCODONE Immed Rel [Roxicodone 5 MG] 5 mg PO Q6H PRN 07/14/17 [History] Heparin 5,000 unit SQ Q12HCO vial 07/20/17 [Rx] Nicotine Patch [Nicoderm] 14 mg TD DAILY patch.[id number] 07/20/17 [Rx] Allergies/Adverse Reactions: 3 Allergy/AdvReac Type Severity Reaction Status Date / Time diphenhydramine AdvReac See Verified 11/12/17 02:30 [From Benadryl] Comments tramadol AdvReac Nausea Verified 11/12/17 02:30 Date of admission: 11/12/17 05:13 Primary care physician: Lex Rey MD Consults: 11/12/17 06:09 Consult to Critical Care [CONS] Routine Consulting Provider: [facility] Reason for Consult: acute respiratory failure on ventilation Call Completed: Yes 11/17/17 11:16 Consult to Psychiatry [CONS] Routine Consulting Provider: Psych[facility] Reason consult: Other Other reason and/or additional details: History of drug abuse. Positive for cocaine and methamphetamines. Prior treatment. Time Notified: 11:18 Call Completed: Yes Discharging clinician: Nate Real Anticipated date of discharge: 11/20/17 - Constitutional Vitals: Temp Pulse Resp BP Pulse Ox 98.1 F 86 19 122/80 99 11/20/17 06:59 11/20/17 06:59 11/20/17 04:14 11/20/17 06:59 11/19/17 15:53 General appearance: Present: A&O X 3, pleasant, no acute distress - Head Head exam: Present: atraumatic, normocephalic - Eye Eye exam: Present: PERRL, conjuntiva pink, sclera anicteric Pupils: Present: PERRL - Neck Neck exam general surgery: Present: supple, trachea midline. Absent: lymphadenopathy - Respiratory Respiratory exam: Present: CTAB. Absent: accessory muscle use, rales, rhonchi, wheezes - Cardiovascular Cardiovascular exam: Present: RRR, +S1, +S2. Absent: diastolic murmur, gallop, rubs, systolic murmur - GI/Abdominal GI/Abdominal exam: Present: normal bowel sounds, soft, no peritoneal signs. Absent: distended, tenderness - Extremities Exam Extremities exam: Present: warm, radial pulses palpable and symmetrical. Absent : calf tenderness, cyanotic, pedal edema - Neurological Exam Neurological exam: Present: alert, CN II-XII intact, oriented X3, no focal deficits. Absent: pronater drift, facial droop, speech deficit - Skin Skin exam: Present: dry, intact - Patient Status Disposition: Left Against Medical Advice Condition: Fair Functional capacity at discharge: independent ambulation Overall status at discharge: patient is back to baseline - Discharge Instructions Follow Up With: Lex Rey MD [Primary Care Provider] - Additional Instructions: recommend Coordinate outpt mental health appointment follow-up pt already linked with karlee garcia. Additional recommend coordinating substance abuse treatment program upon D/C. Reeducate pt on the importance of sobriety and 90 meetings in 90 days and finding a sponsor. - VTE Documentation of Mechanical Device: Intermittent pneumatic compression device
== END 2017-11-20 10:50 | disposition left against medical advice (07) | DRG 130 ==
LOC: EMEROO 02:26 → SUATTDRO 05:13 → ICNU 05:13 → 2NENU 11-17 17:11
PROVIDERS: ADMIT Internal Medicine; ATTEND Internal Medicine